=== PATIENT | female | born 1990 | race Caucasian/White ===

== ENCOUNTER 2017-06-11 06:04 | Inpatient (IN) | payer MEDICAID ==
[~2017-06-11] VITALS: Ht 152.4 cm; Wt 47.0 kg
[~2017-06-11 06:04] MED LIST: NO HOME MEDS
[2017-06-11] MEDS ORDERED: normal saline 1000ML IV soln IVB ONE (06:15)
[2017-06-11] MEDS ORDERED: ondansetron/PF 4mg/2ml inj IV ONE (06:15)
[2017-06-11 06:46] LABS: BASOPHILS # (AUTO) 0.1 X10'3 (0-0.2); BASOPHILS % (AUTO) 0.7 % (0-1); EOSINOPHILS # (AUTO) 0.1 X10'3 (0-0.9); EOSINOPHILS % (AUTO) 1.3 % (0-6); HEMATOCRIT 44.4 % (35.0-45.0); HEMOGLOBIN 15.3 g/dl (12.0-16.0); LYMPHOCYTES # (AUTO) 2.6 X10'3 (1.1-4.8); LYMPHOCYTES % (AUTO) 23.1 % (21-51); MEAN CORPUSCULAR HEMOGLOBIN 35.5 PG (27.0-31.0); MEAN CORPUSCULAR HGB CONC 34.5 % (33.0-36.5); MEAN CORPUSCULAR VOLUME 102.7 FL (78-98); MEAN PLATELET VOLUME 9.5 FL (7.4-10.4); MONOCYTES # (AUTO) 0.5 X10'3 (0-0.9); MONOCYTES % (AUTO) 4.5 % (2-12); NEUTROPHILS % (AUTO) 70.4 % (42-75); PLATELET COUNT 184 X10'3 (140-440); RED BLOOD COUNT 4.33 X10'6 (4.20-5.60); RED CELL DISTRIBUTION WIDTH 13.7 % (11.5-14.5); WHITE BLOOD COUNT 11.4 X10'3 (4.5-11.0)
[2017-06-11 06:53] LABS: CLARITY,URINE Clear (Clear); COLOR,URINE Yellow (Yellow); GLUCOSE, URINE Negative (Neg); KETONES,URINE 80 mg/dl (Neg); LEUKOCYTE ESTERASE ,URINE Negative (Neg); NITRITES, URINE Negative (Neg); OCCULT BLOOD,URINE Moderate (Neg); PROTEIN,URINE 30 mg/dl (Neg); URINE HCG NEGATIVE (NEG)
[2017-06-11 06:55] LABS: UA COLLECTION TYPE CLN CATCH MIDSTREAM
[2017-06-11 07:00] LABS: BACTERIA,URINE NONE SEEN /HPF (Neg); MUCUS STRANDS NONE SEEN /LPF (Neg); RBC,URINE 0-2 /HPF (0-2); SQUAMOUS EPITHELIAL CELL,UR MANY /LPF (FEW); WBC,URINE NONE SEEN /HPF (0-4)
[2017-06-11 07:01] LABS: ALANINE AMINOTRANSFERASE 82 U/L (12-78); ALBUMIN 5.3 G/DL (3.4-5.0); ALBUMIN/GLOBULIN RATIO 1.3 (1.1-1.5); ALKALINE PHOSPHATASE 76 IU/L (46-116); ANION GAP 28 (8-16); ASPARTATE AMINO TRANSFERASE 77 U/L (10-37); BILIRUBIN,TOTAL 0.5 MG/DL (0.1-1.0); BLOOD UREA NITROGEN 11 MG/DL (7-18); BUN/CREATININE RATIO 11.6 (6.6-38.0); CALCIUM 10.1 MG/DL (8.5-10.1); CHLORIDE 96 MMOL/L (99-107); CREATININE 0.95 MG/DL (0.40-0.90); GLUCOSE 72 MG/DL (70-104); LIPASE 75 U/L (73-393); POTASSIUM 3.9 MMOL/L (3.5-5.1); SODIUM 142 MMOL/L (135-145); TOTAL CARBON DIOXIDE 17.7 MMOL/L (24-32); TOTAL PROTEIN 9.3 G/DL (6.4-8.2); eGFR 71 ML/MIN
[2017-06-11] MEDS ORDERED: pantoprazole 40 MG vial IV ONE (07:05)
[2017-06-11] MEDS: normal saline 1000ml 1,000 ML IV SCH ×4 (07:26→19:05)
[2017-06-11] MEDS ORDERED: diphenhydrAMINE 50 mg/ml inj IV PRN (09:10)
[2017-06-11] MEDS ORDERED: dextrose 50%-water 50ml dispensing syringe IV PRN (09:10)
[2017-06-11] MEDS ORDERED: magnesium hydroxide 30ml (MOM) UD suspension PO PRN (09:10)
[2017-06-11] MEDS ORDERED: HYDROcodone/acetaminophen 5mg/325mg tablet PO PRN (09:10)
[2017-06-11] MEDS ORDERED: ondansetron/PF 4mg/2ml inj IV PRN (09:10)
[2017-06-11] MEDS ORDERED: mag hydrox/Alum hydrox/simeth 30ml oral suspension PO PRN (09:10)
[2017-06-11] MEDS ORDERED: morphine 4 MG/ML inj SYRINge IV PRN ×2 (09:10)
[2017-06-11] MEDS ORDERED: diphenhydrAMINE 25mg capsule PO PRN (09:10)
[2017-06-11] MEDS ORDERED: metoclopramide 5 mg/ml inj IV PRN (09:10)
[2017-06-11] MEDS ORDERED: normal saline 500ml IV soln 500 ML IV ONE (09:10)
[2017-06-11] MEDS ORDERED: HYDROmorphone inj. 0.5 MG/0.5 ML DISP.SYRIN IV PRN ×2 (09:10)
[2017-06-11] MEDS ORDERED: HYDROcodone/acetaminophen 10/325mg tab PO PRN (09:10)
[2017-06-11] MEDS ORDERED: bisacodyl 10mg suppository rectal RC PRN (09:10)
[2017-06-11] MEDS ORDERED: haloperidol lactate 5mg/ml inj IM PRN (09:10)
[2017-06-11] MEDS ORDERED: acetaminophen 325mg tablet PO PRN (09:10)
[2017-06-11] MEDS ORDERED: haloperidol 5mg tablet PO PRN (09:10)
[2017-06-11] MEDS ORDERED: thiamine 100mg/ml 2ml inj. IV ONE (09:10)
[2017-06-11 09:51] LABS: MAGNESIUM 1.8 MG/DL (1.5-2.4)
[2017-06-11 09:56] LABS: ABG BASE EXCESS -14.3 mmol/L (-2.0-3.0); ABG HCO3 9.7 mmol/L (22.0-26.0); ABG OXYGEN SATURATION 96.9 % (95-98); ABG PH (T) 7.304 (7.350-7.450); ABG PO2 (T) 103.6 mmHg (83-108); FCOHb 0.6 % (0.5-1.5); FMetHb 0.2 % (0.3-1.12); FO2Hb 96.1 % (94-100); TOTAL HEMOGLOBIN 13.5 G/dl (12.0-16.0)
[2017-06-11] MEDS: dextrose 5%-1/2 normal saline 1,000 ML IV SCH ×5 (11:44→23:28)
[2017-06-11 12:06] LABS: URINE AMPHETAMINE SCREEN NEGATIVE (Neg); URINE BARBITUATE SCREEN NEGATIVE (Neg); URINE BENZODIAZEPINES SCREEN NEGATIVE (Neg); URINE CANNABINOID SCREEN POSITIVE (Neg); URINE COCAINE SCREEN NEGATIVE (Neg); URINE METHADONE SCREEN NEGATIVE (Neg); URINE OPIATE SCREEN NEGATIVE (Neg); URINE PHENCYCLIDINE SCREEN NEGATIVE (Neg)
[2017-06-11 14:00] VITALS: BP 129/88
[2017-06-11 18:00] VITALS: BP 129/92
[2017-06-11] MEDS: docusate sod 100mg capsule PO SCH (20:00)
[2017-06-11] MEDS: heparin, porcine 5000 units/ml vial SQ SCH (20:18)
[2017-06-11] MEDS: LORazepam 2 mg/ml vial IV PRN (20:25)
[2017-06-11] MEDS ORDERED: temazepam 15mg capsule PO PRN (21:00)
[2017-06-12] VITALS: BP 118/80
[2017-06-12 06:11] LABS: BASOPHILS % (AUTO) 0.3 % (0-1); EOSINOPHILS # (AUTO) 0.1 X10'3 (0-0.9); EOSINOPHILS % (AUTO) 1.2 % (0-6); HEMATOCRIT 37.9 % (35.0-45.0); HEMOGLOBIN 13.5 g/dl (12.0-16.0); LYMPHOCYTES # (AUTO) 1.7 X10'3 (1.1-4.8); LYMPHOCYTES % (AUTO) 28.4 % (21-51); MEAN CORPUSCULAR HEMOGLOBIN 36.1 PG (27.0-31.0); MEAN CORPUSCULAR HGB CONC 35.7 % (33.0-36.5); MEAN CORPUSCULAR VOLUME 101.2 FL (78-98); MEAN PLATELET VOLUME 9.4 FL (7.4-10.4); MONOCYTES # (AUTO) 0.7 X10'3 (0-0.9); MONOCYTES % (AUTO) 11.1 % (2-12); NEUTROPHILS # (AUTO) 3.6 X10'3 (1.8-7.7); PLATELET COUNT 166 X10'3 (140-440); RED BLOOD COUNT 3.75 X10'6 (4.20-5.60); RED CELL DISTRIBUTION WIDTH 13.6 % (11.5-14.5)
[2017-06-12 06:36] LABS: ALANINE AMINOTRANSFERASE 54 U/L (12-78); ALBUMIN 3.7 G/DL (3.4-5.0); ALBUMIN/GLOBULIN RATIO 1.1 (1.1-1.5); ALKALINE PHOSPHATASE 57 IU/L (46-116); ANION GAP 10 (8-16); ASPARTATE AMINO TRANSFERASE 52 U/L (10-37); BILIRUBIN,TOTAL 0.6 MG/DL (0.1-1.0); BLOOD UREA NITROGEN 5 MG/DL (7-18); BUN/CREATININE RATIO 8.5 (6.6-38.0); CHLORIDE 102 MMOL/L (99-107); CREATININE 0.59 MG/DL (0.40-0.90); GLUCOSE 117 MG/DL (70-104); POTASSIUM 4.1 MMOL/L (3.5-5.1); SODIUM 138 MMOL/L (135-145); TOTAL CARBON DIOXIDE 25.7 MMOL/L (24-32); eGFR > 90 ML/MIN
[2017-06-12 08:00] VITALS: BP 132/88
[2017-06-12] MEDS: heparin, porcine 5000 units/ml vial SQ SCH ×2 (08:00→20:00)
[2017-06-12] MEDS: nicotine 21mg patch - 24 hr TD SCH (08:00)
[2017-06-12] MEDS: docusate sod 100mg capsule PO SCH ×2 (08:00→20:00)
[2017-06-12] MEDS: pantoprazole 40 MG vial IV SCH (09:38)
[2017-06-12] MEDS: dextrose 5%-1/2 normal saline 1,000 ML IV SCH ×2 (09:39→15:10)
[2017-06-12 11:00] VITALS: BP 127/90
[2017-06-12 18:00] VITALS: BP 138/95
[2017-06-12] MEDS: LORazepam 2 mg/ml vial IV PRN (20:17)
[2017-06-13] VITALS: BP 123/91
[2017-06-13] MEDS: dextrose 5%-1/2 normal saline 1,000 ML IV SCH ×2 (01:10→06:45)
[2017-06-13 05:53] LABS: BASOPHILS # (AUTO) 0.1 X10'3 (0-0.2); EOSINOPHILS # (AUTO) 0.1 X10'3 (0-0.9); EOSINOPHILS % (AUTO) 2.7 % (0-6); HEMATOCRIT 39.6 % (35.0-45.0); LYMPHOCYTES # (AUTO) 1.7 X10'3 (1.1-4.8); LYMPHOCYTES % (AUTO) 32.1 % (21-51); MEAN CORPUSCULAR HEMOGLOBIN 36.2 PG (27.0-31.0); MEAN CORPUSCULAR HGB CONC 35.4 % (33.0-36.5); MEAN CORPUSCULAR VOLUME 102.2 FL (78-98); MEAN PLATELET VOLUME 10.2 FL (7.4-10.4); MONOCYTES # (AUTO) 0.6 X10'3 (0-0.9); MONOCYTES % (AUTO) 10.2 % (2-12); NEUTROPHILS # (AUTO) 2.9 X10'3 (1.8-7.7); PLATELET COUNT 147 X10'3 (140-440); RED BLOOD COUNT 3.87 X10'6 (4.20-5.60); RED CELL DISTRIBUTION WIDTH 13.7 % (11.5-14.5); WHITE BLOOD COUNT 5.4 X10'3 (4.5-11.0)
[2017-06-13 06:29] LABS: ALANINE AMINOTRANSFERASE 66 U/L (12-78); ALBUMIN 4.1 G/DL (3.4-5.0); ALBUMIN/GLOBULIN RATIO 1.2 (1.1-1.5); ALKALINE PHOSPHATASE 60 IU/L (46-116); ANION GAP 10 (8-16); ASPARTATE AMINO TRANSFERASE 84 U/L (10-37); BILIRUBIN,TOTAL 0.7 MG/DL (0.1-1.0); BLOOD UREA NITROGEN 3 MG/DL (7-18); BUN/CREATININE RATIO 5.3 (6.6-38.0); CALCIUM 9.4 MG/DL (8.5-10.1); CHLORIDE 104 MMOL/L (99-107); CREATININE 0.57 MG/DL (0.40-0.90); GLUCOSE 88 MG/DL (70-104); POTASSIUM 4.1 MMOL/L (3.5-5.1); SODIUM 142 MMOL/L (135-145); TOTAL CARBON DIOXIDE 28.4 MMOL/L (24-32); TOTAL PROTEIN 7.5 G/DL (6.4-8.2); eGFR > 90 ML/MIN
[2017-06-13 07:00] VITALS: BP 128/78
[2017-06-13] MEDS: nicotine 21mg patch - 24 hr TD SCH (08:00)
[2017-06-13] MEDS: docusate sod 100mg capsule PO SCH (08:00)
[2017-06-13] MEDS: heparin, porcine 5000 units/ml vial SQ SCH (08:00)
[2017-06-13] MEDS ORDERED: LORazepam 1 MG tablet PO PRN (09:10)
[2017-06-13] MEDS ORDERED: LORazepam 2 mg/ml vial IV PRN (09:10)
[2017-06-13] MEDS: diatr meglu/diatrizoate 30ml oral sol.-(3 dose) bottle PO SCH ×3 (09:14→15:18)
[2017-06-13] MEDS: pantoprazole 40 MG vial IV SCH (09:16)
[2017-06-13 11:00] VITALS: BP 118/88
[2017-06-13] MEDS ORDERED: ONDA4TAB6 PO (12:54)
[2017-06-13] MEDS ORDERED: iohexol 300mg/ml 100ml inj. ONE (14:41)
[2017-06-15] MEDS ORDERED: LORazepam 1 MG tablet PO PRN (09:10)
[2017-06-15] MEDS ORDERED: LORazepam 2 mg/ml vial IV PRN (09:10)
== END 2017-06-13 17:23 | disposition home or self-care (01) | DRG 775 ==
LOC: ER 06:04 → ED HOLD 09:10 → SUR 3N 11:36
PROVIDERS: ADMIT Family Medicine; ATTEND Internal Medicine
PROC: BW211ZZ Computerized Tomography (CT Scan) of Abdomen and Pelvis using Low Osmolar Contrast (ICD-10-PCS; principal; 2017-06-13)
DX: F10.239 Alcohol dependence with withdrawal, unspecified (principal); E87.2 Acidosis; Y90.1 Blood alcohol level of 20-39 mg/100 ml; E86.0 Dehydration; F10.229 Alcohol dependence with intoxication, unspecified; F12.90 Cannabis use, unspecified, uncomplicated; F17.200 Nicotine dependence, unspecified, uncomplicated; F31.9 Bipolar disorder, unspecified; I10 Essential (primary) hypertension; K31.9 Disease of stomach and duodenum, unspecified; Z82.49 Family history of ischemic heart disease and other diseases of the circulatory system; Z80.9 Family history of malignant neoplasm, unspecified
CPT/HCPCS: 36415; 36600; 74177; 80053; 80305; 80320; 81001; 81025; 82009; 82803; 83605; 83690; 83735; 84100; 85018; 85025; 87070; 96361; 96374; 96375; 99291; A6258; C9113; J1644; J2060; J2405; J3411; J7030; Q9963; Q9967

== ENCOUNTER 2017-09-19 12:43 | Inpatient (IN) | payer MEDICAID ==
[~2017-09-19] VITALS: Ht 152.4 cm; Wt 45.8 kg
[~2017-09-19 12:43] MED LIST changes: -NO HOME MEDS; +ONDA4TAB6 PO
[2017-09-19] MEDS ORDERED: ondansetron/PF 4mg/2ml inj IV ONE (13:10)
[2017-09-19] MEDS ORDERED: normal saline 1000ML IV soln IVB ONE ×2 (13:10→15:40)
[2017-09-19 13:18] LABS: BASOPHILS % (AUTO) 0.3 % (0-1); EOSINOPHILS # (AUTO) 0.1 X10'3 (0-0.9); EOSINOPHILS % (AUTO) 0.9 % (0-6); HEMATOCRIT 45.8 % (35.0-45.0); HEMOGLOBIN 15.6 g/dl (12.0-16.0); LYMPHOCYTES # (AUTO) 0.7 X10'3 (1.1-4.8); LYMPHOCYTES % (AUTO) 8.3 % (21-51); MEAN CORPUSCULAR HEMOGLOBIN 36.3 PG (27.0-31.0); MEAN CORPUSCULAR HGB CONC 34.1 % (33.0-36.5); MEAN CORPUSCULAR VOLUME 106.5 FL (78-98); MEAN PLATELET VOLUME 8.7 FL (7.4-10.4); MONOCYTES # (AUTO) 0.3 X10'3 (0-0.9); MONOCYTES % (AUTO) 3.7 % (2-12); NEUTROPHILS # (AUTO) 7.8 X10'3 (1.8-7.7); NEUTROPHILS % (AUTO) 86.8 % (42-75); PLATELET COUNT 205 X10'3 (140-440); RED CELL DISTRIBUTION WIDTH 15.4 % (11.5-14.5); WHITE BLOOD COUNT 8.9 X10'3 (4.5-11.0)
[2017-09-19 13:21] LABS: COLOR,URINE YELLOW (Yellow); GLUCOSE, URINE NEGATIVE (Neg); KETONES,URINE >=80 mg/dl (Neg); LEUKOCYTE ESTERASE ,URINE NEGATIVE (Neg); NITRITES, URINE NEGATIVE (Neg); OCCULT BLOOD,URINE LARGE (Neg); PROTEIN,URINE >=300 mg/dl (Neg); UROBILINOGEN,URINE 0.2 E.U/dL (0.2-1.0)
[2017-09-19 13:22] LABS: URINE HCG NEGATIVE (NEG)
[2017-09-19 13:27] LABS: INR 0.9 INR; PROTHROMBIN TIME 9.7 SECONDS (9.0-12.0)
[2017-09-19 13:27] LABS: CLARITY,URINE SLIGHTLY CLOUDY (Clear); UA COLLECTION TYPE CLN CATCH MIDSTREAM
[2017-09-19 13:32] LABS: WBC,URINE 0-4 /HPF (0-4)
[2017-09-19 13:33] LABS: ALANINE AMINOTRANSFERASE 73 U/L (12-78); ALBUMIN 5.4 G/DL (3.4-5.0); ALBUMIN/GLOBULIN RATIO 1.2 (1.1-1.5); ALKALINE PHOSPHATASE 82 IU/L (46-116); AMYLASE 35 U/L (25-115); ANION GAP 37 (8-16); ASPARTATE AMINO TRANSFERASE 82 U/L (10-37); BILIRUBIN,TOTAL 0.5 MG/DL (0.1-1.0); BLOOD UREA NITROGEN 6 MG/DL (7-18); BUN/CREATININE RATIO 6.7 (6.6-38.0); CHLORIDE 96 MMOL/L (99-107); CREATININE 0.89 MG/DL (0.40-0.90); GLUCOSE 141 MG/DL (70-104); LIPASE 73 U/L (73-393); POTASSIUM 4.5 MMOL/L (3.5-5.1); SODIUM 140 MMOL/L (135-145); TOTAL PROTEIN 9.8 G/DL (6.4-8.2); eGFR 76 ML/MIN
[2017-09-19 13:35] LABS: TOTAL CARBON DIOXIDE 6.9 MMOL/L (24-32)
[2017-09-19 13:42] LABS: BACTERIA,URINE FEW /HPF (Neg); HYALINE CASTS 0-3 /LPF (NEGATIVE); MUCUS STRANDS FEW /LPF (Neg); RBC,URINE 0-2 /HPF (0-2); SQUAMOUS EPITHELIAL CELL,UR MODERATE /LPF (FEW)
[2017-09-19] MEDS ORDERED: NO HOME MEDS (14:31)
[2017-09-19] MEDS ORDERED: proCHLORperazine 10 MG/2 ml inj IV ONE (15:15)
[2017-09-19] MEDS ORDERED: ondansetron/PF 4mg/2ml inj IV PRN (16:35)
[2017-09-19] MEDS ORDERED: morphine 4 MG/ML inj SYRINge IV PRN ×2 (16:35)
[2017-09-19] MEDS ORDERED: dextrose 50%-water 50ml dispensing syringe IV PRN (16:35)
[2017-09-19] MEDS ORDERED: LORazepam 1 MG tablet PO PRN (16:35)
[2017-09-19] MEDS ORDERED: mag hydrox/Alum hydrox/simeth 30ml oral suspension PO PRN (16:35)
[2017-09-19] MEDS ORDERED: potassium Cl 20 mEq SR tablet PO PRN (16:35)
[2017-09-19] MEDS ORDERED: LORazepam 2 mg/ml vial IV PRN ×2 (16:35)
[2017-09-19] MEDS ORDERED: HYDROcodone/acetaminophen 5mg/325mg tablet PO PRN (16:35)
[2017-09-19] MEDS ORDERED: magnesium Cl slow-release 64mg tablet PO PRN (16:35)
[2017-09-19] MEDS ORDERED: magnesium hydroxide 30ml (MOM) UD suspension PO PRN (16:35)
[2017-09-19] MEDS ORDERED: magnesium 2GM in 50ml NS 50 ML IV PRN (16:35)
[2017-09-19] MEDS ORDERED: potassium Cl 40MEQ/NS 500ml 500 ML IV PRN ×2 (16:35)
[2017-09-19] MEDS ORDERED: HYDROcodone/acetaminophen 10/325mg tab PO PRN (16:35)
[2017-09-19] MEDS ORDERED: thiamine 100mg/ml 2ml inj. IV ONE (16:35)
[2017-09-19] MEDS ORDERED: acetaminophen 325mg tablet PO PRN ×2 (16:35)
[2017-09-19] MEDS ORDERED: cloNIDine 0.1 MG/24 HOUR patch (7 day patch) TD SCH (16:35)
[2017-09-19] MEDS ORDERED: magnesium 4gm in 100ml NS 100 ML IV PRN (16:35)
[2017-09-19 16:46] LABS: ABG BASE EXCESS -20.9 mmol/L (-2.0-3.0); ABG HCO3 5.6 mmol/L (22.0-26.0); ABG OXYGEN SATURATION 94.1 % (95-98); ABG PCO2 (T) 16.4 mmHg (32.0-45.0); ABG PH (T) 7.154 (7.350-7.450); ABG PO2 (T) 81.8 mmHg (83-108); ALLEN'S TEST Positive; FCOHb 0.9 % (0.5-1.5); FMetHb 0.4 % (0.3-1.12); FO2Hb 92.9 % (94-100); TOTAL HEMOGLOBIN 14.3 G/dl (12.0-16.0)
[2017-09-19] MEDS: normal saline 1000ml 1,000 ML IV SCH (17:17)
[2017-09-19 17:35] LABS: ABG BASE EXCESS -18.9 mmol/L (-2.0-3.0); ABG HCO3 6.3 mmol/L (22.0-26.0); ABG OXYGEN SATURATION 97.5 % (95-98); ABG PCO2 (T) 15.8 mmHg (32.0-45.0); ABG PH (T) 7.219 (7.350-7.450); FCOHb 0.6 % (0.5-1.5); FMetHb 0.4 % (0.3-1.12); FO2Hb 96.5 % (94-100); TOTAL HEMOGLOBIN 13.9 G/dl (12.0-16.0)
[2017-09-19 21:10] VITALS: BP 126/89
[2017-09-19 22:35] LABS: MAGNESIUM 1.9 MG/DL (1.5-2.4); PHOSPHORUS 2.1 MG/DL (2.3-4.5)
[2017-09-19 23:00] VITALS: BP 118/86
[2017-09-20] MEDS: normal saline 1000ml 1,000 ML IV SCH ×7 (00:50→22:31)
[2017-09-20 03:00] VITALS: BP 143/78
[2017-09-20 06:00] VITALS: BP 117/83
[2017-09-20 06:11] LABS: BASOPHILS % (AUTO) 0.5 % (0-1); EOSINOPHILS % (AUTO) 0.1 % (0-6); HEMATOCRIT 37.3 % (35.0-45.0); HEMOGLOBIN 12.9 g/dl (12.0-16.0); LYMPHOCYTES # (AUTO) 1.2 X10'3 (1.1-4.8); LYMPHOCYTES % (AUTO) 14.3 % (21-51); MEAN CORPUSCULAR HEMOGLOBIN 36.7 PG (27.0-31.0); MEAN CORPUSCULAR HGB CONC 34.6 % (33.0-36.5); MONOCYTES # (AUTO) 0.8 X10'3 (0-0.9); MONOCYTES % (AUTO) 9.9 % (2-12); NEUTROPHILS # (AUTO) 6.3 X10'3 (1.8-7.7); NEUTROPHILS % (AUTO) 75.2 % (42-75); PLATELET COUNT 161 X10'3 (140-440); RED BLOOD COUNT 3.51 X10'6 (4.20-5.60); RED CELL DISTRIBUTION WIDTH 14.6 % (11.5-14.5); WHITE BLOOD COUNT 8.3 X10'3 (4.5-11.0)
[2017-09-20 06:35] LABS: PROTHROMBIN TIME 10.7 SECONDS (9.0-12.0)
[2017-09-20 06:50] LABS: ALANINE AMINOTRANSFERASE 47 U/L (12-78); ALBUMIN 3.7 G/DL (3.4-5.0); ALBUMIN/GLOBULIN RATIO 1.1 (1.1-1.5); ALKALINE PHOSPHATASE 58 IU/L (46-116); ANION GAP 15 (8-16); ASPARTATE AMINO TRANSFERASE 47 U/L (10-37); BLOOD UREA NITROGEN 6 MG/DL (7-18); BUN/CREATININE RATIO 10.3 (6.6-38.0); CALCIUM 8.5 MG/DL (8.5-10.1); CHLORIDE 105 MMOL/L (99-107); CREATININE 0.58 MG/DL (0.40-0.90); GLUCOSE 83 MG/DL (70-104); POTASSIUM 3.9 MMOL/L (3.5-5.1); SODIUM 138 MMOL/L (135-145); TOTAL CARBON DIOXIDE 18.5 MMOL/L (24-32); TOTAL PROTEIN 7.1 G/DL (6.4-8.2); eGFR > 90 ML/MIN
[2017-09-20] MEDS: enoxaparin 40mg/0.4ml syringe SQ SCH (07:37)
[2017-09-20] MEDS: K and/or MAG REPLACEMENT MC SCH (08:00)
[2017-09-20 11:00] VITALS: BP 121/85
[2017-09-20 13:25] LABS: ABG BASE EXCESS -6.2 mmol/L (-2.0-3.0); ABG HCO3 16.8 mmol/L (22.0-26.0); ABG OXYGEN SATURATION 98.5 % (95-98); ABG PCO2 (T) 26.7 mmHg (32.0-45.0); ABG PH (T) 7.417 (7.350-7.450); ABG PO2 (T) 119.6 mmHg (83-108); ALLEN'S TEST Positive; FCOHb 0.2 % (0.5-1.5); FMetHb 0.1 % (0.3-1.12); FO2Hb 98.2 % (94-100); TOTAL HEMOGLOBIN 12.9 G/dl (12.0-16.0)
[2017-09-20 15:00] VITALS: BP 98/62
[2017-09-20 18:00] VITALS: BP 125/88
[2017-09-20 22:00] VITALS: BP 125/90
[2017-09-21] MEDS: normal saline 1000ml 1,000 ML IV SCH ×4 (03:36→12:46)
[2017-09-21 04:00] VITALS: BP 125/86
[2017-09-21 05:37] LABS: BASOPHILS % (AUTO) 0.7 % (0-1); EOSINOPHILS % (AUTO) 0.8 % (0-6); HEMATOCRIT 34.6 % (35.0-45.0); HEMOGLOBIN 11.8 g/dl (12.0-16.0); LYMPHOCYTES % (AUTO) 35.5 % (21-51); MEAN CORPUSCULAR HGB CONC 34.1 % (33.0-36.5); MEAN CORPUSCULAR VOLUME 105.7 FL (78-98); MEAN PLATELET VOLUME 9.4 FL (7.4-10.4); MONOCYTES # (AUTO) 0.5 X10'3 (0-0.9); MONOCYTES % (AUTO) 9.6 % (2-12); NEUTROPHILS # (AUTO) 2.9 X10'3 (1.8-7.7); NEUTROPHILS % (AUTO) 53.4 % (42-75); PLATELET COUNT 126 X10'3 (140-440); RED BLOOD COUNT 3.27 X10'6 (4.20-5.60); RED CELL DISTRIBUTION WIDTH 13.8 % (11.5-14.5); WHITE BLOOD COUNT 5.5 X10'3 (4.5-11.0)
[2017-09-21 05:42] LABS: PROTHROMBIN TIME 10.7 SECONDS (9.0-12.0)
[2017-09-21 06:00] VITALS: BP 127/83
[2017-09-21 06:03] LABS: ALANINE AMINOTRANSFERASE 58 U/L (12-78); ALBUMIN 3.5 G/DL (3.4-5.0); ALBUMIN/GLOBULIN RATIO 1.2 (1.1-1.5); ALKALINE PHOSPHATASE 56 IU/L (46-116); ANION GAP 10 (8-16); ASPARTATE AMINO TRANSFERASE 90 U/L (10-37); BILIRUBIN,TOTAL 1.2 MG/DL (0.1-1.0); BLOOD UREA NITROGEN 2 MG/DL (7-18); CALCIUM 8.2 MG/DL (8.5-10.1); CHLORIDE 105 MMOL/L (99-107); GLUCOSE 86 MG/DL (70-104); MAGNESIUM 1.7 MG/DL (1.5-2.4); SODIUM 137 MMOL/L (135-145); TOTAL CARBON DIOXIDE 21.7 MMOL/L (24-32); TOTAL PROTEIN 6.4 G/DL (6.4-8.2); eGFR > 90 ML/MIN
[2017-09-21] MEDS: potassium Cl 20 mEq SR tablet PO PRN ×2 (06:57→12:43)
[2017-09-21] MEDS: enoxaparin 40mg/0.4ml syringe SQ SCH (07:32)
[2017-09-21] MEDS: K and/or MAG REPLACEMENT MC SCH (08:00)
[2017-09-21 11:00] VITALS: BP 112/80
[2017-09-21 15:00] VITALS: BP 134/98
[2017-09-21 16:41] LABS: HEMATOCRIT 37.8 % (35.0-45.0); MEAN CORPUSCULAR HEMOGLOBIN 36.6 PG (27.0-31.0); MEAN CORPUSCULAR HGB CONC 34.4 % (33.0-36.5); MEAN CORPUSCULAR VOLUME 106.5 FL (78-98); MEAN PLATELET VOLUME 9.7 FL (7.4-10.4); PLATELET COUNT 139 X10'3 (140-440); RED BLOOD COUNT 3.55 X10'6 (4.20-5.60); RED CELL DISTRIBUTION WIDTH 14.2 % (11.5-14.5); WHITE BLOOD COUNT 5.9 X10'3 (4.5-11.0)
[2017-09-21 17:01] LABS: TOTAL CELLS COUNTED 100
[2017-09-21 17:02] LABS: PLATELET ESTIMATE DECREASED; STOMATOCYTES 1+; TARGET CELLS FEW
== END 2017-09-21 17:52 | disposition home or self-care (01) | DRG 242 ==
LOC: ER 12:43 → ED HOLD 16:31 → EDBEDREQSVC 19:44 → PCU 3S 21:10
PROVIDERS: ADMIT Internal Medicine; ATTEND Internal Medicine
DX: K22.6 Gastro-esophageal laceration-hemorrhage syndrome (principal); E87.2 Acidosis; D64.9 Anemia, unspecified; E86.0 Dehydration; F10.10 Alcohol abuse, uncomplicated; F12.90 Cannabis use, unspecified, uncomplicated; F17.200 Nicotine dependence, unspecified, uncomplicated; R00.0 Tachycardia, unspecified; Z82.49 Family history of ischemic heart disease and other diseases of the circulatory system; Z80.9 Family history of malignant neoplasm, unspecified
CPT/HCPCS: 36415; 36600; 80053; 80320; 81001; 81025; 82009; 82150; 82803; 83605; 83690; 83735; 84100; 85018; 85025; 85610; 87070; 96361; 96374; 96375; 99285; J0780; J1650; J2405; J3411; J7030

== ENCOUNTER 2017-10-23 14:40 | Emergency (ER) | payer MEDICAID ==
[~2017-10-23] VITALS: Ht 152.4 cm; Wt 48.2 kg
[2017-10-23 15:02] LABS: URINE HCG NEGATIVE (NEG)
[2017-10-23 15:05] LABS: CLARITY,URINE CLEAR (Clear); COLOR,URINE YELLOW (Yellow); GLUCOSE, URINE NEGATIVE (Neg); KETONES,URINE >=80 mg/dl (Neg); LEUKOCYTE ESTERASE ,URINE NEGATIVE (Neg); NITRITES, URINE NEGATIVE (Neg); OCCULT BLOOD,URINE SMALL (Neg); PROTEIN,URINE 100 mg/dl (Neg); UROBILINOGEN,URINE 0.2 E.U/dL (0.2-1.0)
[2017-10-23 15:10] LABS: UA COLLECTION TYPE CLN CATCH MIDSTREAM
[2017-10-23] MEDS ORDERED: ondansetron/PF 4mg/2ml inj IV ONE (15:10)
[2017-10-23] MEDS ORDERED: LORazepam 2 mg/ml vial IV ONE (15:10)
[2017-10-23] MEDS ORDERED: normal saline 1000ML IV soln IVB ONE ×2 (15:10→15:35)
[2017-10-23 15:12] LABS: WBC,URINE NONE SEEN /HPF (0-4)
[2017-10-23 15:13] LABS: BASOPHILS % (AUTO) 0.2 % (0-1); EOSINOPHILS % (AUTO) 0 % (0-6); HEMATOCRIT 42.5 % (35.0-45.0); HEMOGLOBIN 14.8 g/dl (12.0-16.0); LYMPHOCYTES # (AUTO) 0.5 X10'3 (1.1-4.8); LYMPHOCYTES % (AUTO) 4.6 % (21-51); MEAN CORPUSCULAR HEMOGLOBIN 36.9 PG (27.0-31.0); MEAN CORPUSCULAR HGB CONC 34.8 % (33.0-36.5); MEAN CORPUSCULAR VOLUME 105.9 FL (78-98); MEAN PLATELET VOLUME 9.2 FL (7.4-10.4); MONOCYTES # (AUTO) 0.3 X10'3 (0-0.9); MONOCYTES % (AUTO) 2.6 % (2-12); NEUTROPHILS # (AUTO) 10.4 X10'3 (1.8-7.7); NEUTROPHILS % (AUTO) 92.6 % (42-75); PLATELET COUNT 113 X10'3 (140-440); RED BLOOD COUNT 4.01 X10'6 (4.20-5.60); RED CELL DISTRIBUTION WIDTH 13.2 % (11.5-14.5); WHITE BLOOD COUNT 11.2 X10'3 (4.5-11.0)
[2017-10-23 15:13] LABS: BACTERIA,URINE FEW /HPF (Neg); RBC,URINE 0-2 /HPF (0-2); SQUAMOUS EPITHELIAL CELL,UR FEW /LPF (FEW)
[2017-10-23 15:20] LABS: INR 0.9 INR; PROTHROMBIN TIME 9.7 SECONDS (9.0-12.0)
[2017-10-23 15:25] LABS: ALANINE AMINOTRANSFERASE 89 U/L (12-78); ALBUMIN 5.2 G/DL (3.4-5.0); ALBUMIN/GLOBULIN RATIO 1.2 (1.1-1.5); ALKALINE PHOSPHATASE 90 IU/L (46-116); ANION GAP 31 (8-16); BILIRUBIN,TOTAL 1.2 MG/DL (0.1-1.0); BLOOD UREA NITROGEN 5 MG/DL (7-18); BUN/CREATININE RATIO 7.8 (6.6-38.0); CALCIUM 9.8 MG/DL (8.5-10.1); CHLORIDE 97 MMOL/L (99-107); CREATININE 0.64 MG/DL (0.40-0.90); GLUCOSE 146 MG/DL (70-104); SODIUM 137 MMOL/L (135-145); TOTAL PROTEIN 9.5 G/DL (6.4-8.2); eGFR > 90 ML/MIN
[2017-10-23 15:27] LABS: ASPARTATE AMINO TRANSFERASE 118 U/L (10-37); POTASSIUM 4.7 MMOL/L (3.5-5.1)
[2017-10-23 15:29] LABS: TOTAL CARBON DIOXIDE 8.8 MMOL/L (24-32)
[2017-10-23 17:27] VITALS: BP 127/78
[2017-10-23 17:52] LABS: ALANINE AMINOTRANSFERASE 78 U/L (12-78); ALBUMIN 4.3 G/DL (3.4-5.0); ALBUMIN/GLOBULIN RATIO 1.2 (1.1-1.5); ALKALINE PHOSPHATASE 79 IU/L (46-116); ANION GAP 24 (8-16); ASPARTATE AMINO TRANSFERASE 85 U/L (10-37); BILIRUBIN,TOTAL 0.8 MG/DL (0.1-1.0); BLOOD UREA NITROGEN 3 MG/DL (7-18); BUN/CREATININE RATIO 4.6 (6.6-38.0); CHLORIDE 102 MMOL/L (99-107); CREATININE 0.65 MG/DL (0.40-0.90); GLUCOSE 101 MG/DL (70-104); POTASSIUM 4.6 MMOL/L (3.5-5.1); SODIUM 139 MMOL/L (135-145); eGFR > 90 ML/MIN
[2017-10-23 17:57] LABS: TOTAL CARBON DIOXIDE 12.7 MMOL/L (24-32)
[2017-10-23] MEDS ORDERED: ONDA8TAB9 PO (18:36)
== END 2017-10-23 18:44 | disposition home or self-care (01) ==
LOC: ER 14:41
DX: F10.239 Alcohol dependence with withdrawal, unspecified (principal); F12.90 Cannabis use, unspecified, uncomplicated; Z79.899 Other long term (current) drug therapy
CPT/HCPCS: 36415; 80053; 81001; 81025; 85025; 85610; 96361; 96374; 96375; 99284; J2060; J2405; J7030

== ENCOUNTER 2019-04-17 23:22 | Inpatient (IN) | payer MEDICAID ==
[~2019-04-17] VITALS: Ht 152.4 cm; Wt 56.8 kg
[~2019-04-17 23:22] MED LIST changes: -ONDA4TAB6 PO; +ONDA8TAB9 PO
[2019-04-17 23:47] LABS: URINE HCG NEGATIVE (NEG)
[2019-04-17 23:49] LABS: CLARITY,URINE SLIGHTLY CLOUDY (Clear); COLOR,URINE YELLOW (Yellow); GLUCOSE, URINE NEGATIVE (Neg); KETONES,URINE >=80 mg/dl (Neg); LEUKOCYTE ESTERASE ,URINE NEGATIVE (Neg); NITRITES, URINE NEGATIVE (Neg); OCCULT BLOOD,URINE MODERATE (Neg); PROTEIN,URINE 100 mg/dl (Neg); UROBILINOGEN,URINE 0.2 E.U/dL (0.2-1.0)
[2019-04-17 23:50] LABS: UA COLLECTION TYPE CLN CATCH MIDSTREAM
[2019-04-18 00:10] LABS: WBC,URINE 0-4 /HPF (0-4)
[2019-04-18 00:11] LABS: BACTERIA,URINE NONE SEEN /HPF (Neg); MUCUS STRANDS MANY /LPF (Neg); SQUAMOUS EPITHELIAL CELL,UR MANY /LPF (FEW)
[2019-04-18 00:15] LABS: BASOPHILS # (AUTO) 0.1 X10'3 (0-0.2); BASOPHILS % (AUTO) 0.7 % (0-1); EOSINOPHILS % (AUTO) 0 % (0-6); HEMATOCRIT 42.7 % (35.0-45.0); HEMOGLOBIN 14.5 g/dl (12.0-16.0); LYMPHOCYTES # (AUTO) 0.8 X10'3 (1.1-4.8); LYMPHOCYTES % (AUTO) 9.9 % (21-51); MEAN CORPUSCULAR HEMOGLOBIN 37.2 PG (27.0-31.0); MEAN CORPUSCULAR VOLUME 109.4 FL (78-98); MEAN PLATELET VOLUME 10.3 FL (7.4-10.4); MONOCYTES # (AUTO) 0.8 X10'3 (0-0.9); MONOCYTES % (AUTO) 9.7 % (2-12); NEUTROPHILS # (AUTO) 6.8 X10'3 (1.8-7.7); NEUTROPHILS % (AUTO) 79.7 % (42-75); PLATELET COUNT 118 X10'3 (140-440); RED CELL DISTRIBUTION WIDTH 13.1 % (11.5-14.5); WHITE BLOOD COUNT 8.5 X10'3 (4.5-11.0)
[2019-04-18 00:18] LABS: ALANINE AMINOTRANSFERASE 133 U/L (12-78); ALBUMIN 4.8 G/DL (3.4-5.0); ALBUMIN/GLOBULIN RATIO 1.1 (1.1-1.5); ALKALINE PHOSPHATASE 88 IU/L (46-116); ANION GAP 25 (8-16); ASPARTATE AMINO TRANSFERASE 145 U/L (10-37); BILIRUBIN,TOTAL 1.1 MG/DL (0.1-1.0); BLOOD UREA NITROGEN 5 MG/DL (7-18); BUN/CREATININE RATIO 6.4 (6.6-38.0); CALCIUM 9.7 MG/DL (8.5-10.1); CHLORIDE 100 MMOL/L (99-107); CREATININE 0.78 MG/DL (0.40-0.90); GLUCOSE 143 MG/DL (70-104); LIPASE 517 U/L (73-393); POTASSIUM 4.1 MMOL/L (3.5-5.1); SODIUM 138 MMOL/L (135-145); eGFR 87 ML/MIN
[2019-04-18] MEDS ORDERED: LORazepam 2 mg/ml vial IV ONE (00:40)
[2019-04-18] MEDS ORDERED: ondansetron/PF 4mg/2ml inj IV ONE (00:40)
[2019-04-18] MEDS ORDERED: proCHLORperazine 10 MG/2 ml inj IV ONE (00:40)
[2019-04-18] MEDS ORDERED: normal saline 1000ML IV soln IVB ONE ×2 (00:40)
[2019-04-18] MEDS ORDERED: normal saline 1000ml 1,000 ML IV SCH (03:38)
[2019-04-18] MEDS ORDERED: potassium Cl 20 mEq SR tablet PO PRN ×2 (03:40)
[2019-04-18] MEDS ORDERED: magnesium 4gm in 100ml NS 100 ML IV PRN (03:40)
[2019-04-18] MEDS ORDERED: potassium CL 10mEq/100ml bag 100 ML IV PRN ×2 (03:40)
[2019-04-18] MEDS ORDERED: magnesium Cl slow-release 64mg tablet PO PRN (03:40)
[2019-04-18] MEDS ORDERED: magnesium 2GM in 50ml NS 50 ML IV PRN (03:40)
--- NOTE | 2019-04-18 05:21 | NUR ---
Patient in room ED 6. I have received report from Rayshawn ED RN and had the opportunity to ask questions and assume patient care.
[2019-04-18 05:35] LABS: ALANINE AMINOTRANSFERASE 95 U/L (12-78); ALBUMIN 3.6 G/DL (3.4-5.0); ALBUMIN/GLOBULIN RATIO 1.3 (1.1-1.5); ALKALINE PHOSPHATASE 65 IU/L (46-116); ANION GAP 18 (8-16); ASPARTATE AMINO TRANSFERASE 92 U/L (10-37); BILIRUBIN,TOTAL 0.7 MG/DL (0.1-1.0); BLOOD UREA NITROGEN 3 MG/DL (7-18); CALCIUM 7.6 MG/DL (8.5-10.1); CHLORIDE 107 MMOL/L (99-107); GLUCOSE 84 MG/DL (70-104); POTASSIUM 3.7 MMOL/L (3.5-5.1); SODIUM 139 MMOL/L (135-145); TOTAL PROTEIN 6.4 G/DL (6.4-8.2); eGFR > 90 ML/MIN
[2019-04-18 05:40] LABS: TOTAL CARBON DIOXIDE 13.7 MMOL/L (24-32)
[2019-04-18 05:46] VITALS: BP 129/81
[2019-04-18 05:50] LABS: BASOPHILS % (AUTO) 0.2 % (0-1); EOSINOPHILS % (AUTO) 0 % (0-6); HEMATOCRIT 35.4 % (35.0-45.0); HEMOGLOBIN 12.1 g/dl (12.0-16.0); LYMPHOCYTES # (AUTO) 0.9 X10'3 (1.1-4.8); LYMPHOCYTES % (AUTO) 11.3 % (21-51); MEAN CORPUSCULAR HEMOGLOBIN 37.8 PG (27.0-31.0); MEAN CORPUSCULAR HGB CONC 34.1 g/dL (33.0-36.5); MEAN CORPUSCULAR VOLUME 110.7 FL (78-98); MEAN PLATELET VOLUME 10.3 FL (7.4-10.4); MONOCYTES # (AUTO) 0.9 X10'3 (0-0.9); MONOCYTES % (AUTO) 11.7 % (2-12); NEUTROPHILS % (AUTO) 76.8 % (42-75); PLATELET COUNT 90 X10'3 (140-440); RED BLOOD COUNT 3.19 X10'6 (4.20-5.60); WHITE BLOOD COUNT 7.8 X10'3 (4.5-11.0)
--- NOTE | 2019-04-18 06:38 | NUR ---
Problems reprioritized. Patient report given, questions answered & plan of care reviewed with XENA Dale.
[2019-04-18] MEDS ORDERED: ONDA8TAB6 PO (06:51)
[2019-04-18 06:59] LABS: LARGE PLATELETS FEW; PLATELET ESTIMATE DECREASED
[2019-04-18 07:00] VITALS: BP 111/72
[2019-04-18] MEDS: K and/or MAG REPLACEMENT MC SCH ×2 (08:00→19:06)
[2019-04-18 11:24] VITALS: BP 116/77
--- NOTE | 2019-04-18 12:05 | NUR ---
SPOKE TO MD HARRIS ABOUT LIPASE, VENOUS CO2, AND CALCIUM LEVELS. SEE NEW ORDERS.
--- NOTE | 2019-04-18 12:08 | NUR ---
PAGED RESPIRATORY REGARDING ABGS
--- NOTE | 2019-04-18 12:09 | NUR ---
AWARE OF HR. BEING IN THE 110S. ORDERS TO PLACE PT. ON TELE.
[2019-04-18 12:12] LABS: HEMOGLOBIN A1C 4.4 % (4.5-6.2)
[2019-04-18 12:40] LABS: ABG BASE EXCESS -7.7 mmol/L (-2.0-3.0); ABG HCO3 15.8 mmol/L (22.0-26.0); ABG PCO2 (T) 26.8 mmHg (35.0-45.0); ABG PH (T) 7.387 (7.350-7.450); ABG PO2 (T) 103.9 mmHg (83-108); ALLEN'S TEST Positive; FCOHb 0.6 % (0.5-1.5); FMetHb 0.3 % (0.3-1.12); FO2Hb 97.1 % (94-100); PATIENT TEMPERATURE 36.7; TOTAL HEMOGLOBIN 12.9 G/dl (12.0-16.0)
--- NOTE | 2019-04-18 12:46 | NUR ---
MD AWARE OF ABG RESULTS. RESULTS PLACED IN CHART.
--- NOTE | 2019-04-18 12:50 | NUR ---
FAXED DIETARY FOR LATE LUNCH TRAY- FULL LIQUID DIET.
[2019-04-18] MEDS: sodium bicarbonate (8.4%) inj. 100 MEQ in dextrose 5%-water 1,000 ML IV SCH ×2 (12:59→23:58)
[2019-04-18 13:12] LABS: MAGNESIUM 1.7 MG/DL (1.5-2.4)
--- NOTE | 2019-04-18 13:19 | NUR ---
PAGER ID: [phone] MESSAGE: KATLYN VAZQUEZ 345 SORRY TO PAGE YOU! PT. C/O SEVERAL HEAT FLASH EPISODES AT HOME. A LITTLE EXOPTHALMUS - CAN WE RUN THYROID LABS? CHARLI [phone]
[2019-04-18 18:00] VITALS: BP 127/90
--- NOTE | 2019-04-18 18:08 | NUR ---
GAVE REPORT TO CECILIA MCCALLUM. PT. IN ROOM EATING DINNER, CALL LIGHT WITHIN REACH, FLUIDS RUNNING, NO NEEDS AT THIS TIME. TELE ON AND WORKING.
[2019-04-19] VITALS: BP 143/91
[2019-04-19 05:20] LABS: ALANINE AMINOTRANSFERASE 80 U/L (12-78); ALBUMIN 3.7 G/DL (3.4-5.0); ALBUMIN/GLOBULIN RATIO 1.1 (1.1-1.5); ALKALINE PHOSPHATASE 66 IU/L (46-116); ANION GAP 10 (8-16); ASPARTATE AMINO TRANSFERASE 75 U/L (10-37); BILIRUBIN,TOTAL 1.1 MG/DL (0.1-1.0); BLOOD UREA NITROGEN 1 MG/DL (7-18); BUN/CREATININE RATIO 1.7 (6.6-38.0); CALCIUM 8.5 MG/DL (8.5-10.1); CHLORIDE 102 MMOL/L (99-107); CREATININE 0.58 MG/DL (0.40-0.90); GLUCOSE 132 MG/DL (70-104); MAGNESIUM 1.8 MG/DL (1.5-2.4); SODIUM 139 MMOL/L (135-145); TOTAL CARBON DIOXIDE 27.5 MMOL/L (24-32); eGFR > 90 ML/MIN
[2019-04-19 05:28] LABS: POTASSIUM 2.8 MMOL/L (3.5-5.1)
[2019-04-19] MEDS ORDERED: Potassium Cl inj 40 MEQ in normal saline 1000ml 980 ML IV SCH (05:50)
[2019-04-19 06:09] LABS: BASOPHILS % (AUTO) 0.5 % (0-1); EOSINOPHILS # (AUTO) 0.1 X10'3 (0-0.9); EOSINOPHILS % (AUTO) 1.2 % (0-6); HEMATOCRIT 38.4 % (35.0-45.0); HEMOGLOBIN 13.5 g/dl (12.0-16.0); LYMPHOCYTES # (AUTO) 1.9 X10'3 (1.1-4.8); LYMPHOCYTES % (AUTO) 24.5 % (21-51); MEAN CORPUSCULAR HEMOGLOBIN 37.4 PG (27.0-31.0); MEAN CORPUSCULAR HGB CONC 35.2 g/dL (33.0-36.5); MEAN CORPUSCULAR VOLUME 106.2 FL (78-98); MEAN PLATELET VOLUME 10.7 FL (7.4-10.4); MONOCYTES # (AUTO) 0.7 X10'3 (0-0.9); MONOCYTES % (AUTO) 9.5 % (2-12); NEUTROPHILS # (AUTO) 4.9 X10'3 (1.8-7.7); NEUTROPHILS % (AUTO) 64.3 % (42-75); PLATELET COUNT 96 X10'3 (140-440); RED BLOOD COUNT 3.62 X10'6 (4.20-5.60); RED CELL DISTRIBUTION WIDTH 12.7 % (11.5-14.5); WHITE BLOOD COUNT 7.6 X10'3 (4.5-11.0)
--- NOTE | 2019-04-19 06:09 | NUR ---
Report given to XENA Martinez and Jimena RN
[2019-04-19 07:00] VITALS: BP 132/91
[2019-04-19] MEDS: K and/or MAG REPLACEMENT MC SCH (07:09)
[2019-04-19] MEDS ORDERED: POTASSIUM BICARB 20meq eff tab 20 MEQ TABLET.EFF PO PRN ×2 (07:19)
[2019-04-19 07:53] LABS: LARGE PLATELETS FEW; PLATELET ESTIMATE DECREASED
[2019-04-19 11:00] VITALS: BP 110/82
[2019-04-19] MEDS ORDERED: THIA100T66 PO (14:48)
[2019-04-19] MEDS ORDERED: FOLI0.4T2 PO (14:48)
--- NOTE | 2019-04-19 15:17 | NUR ---
Pt to be discharged, IV taken out, tele returned. All belongings taken from room. Meds e scripted to preferred pharmacy. Pt appropriate for discharge. Pt given information about staying away from alcohol and treatment options.
== END 2019-04-19 15:54 | disposition home or self-care (01) | DRG 249 ==
LOC: ER 23:23 → ED HOLD 04-18 03:38 → SUR 3N 04-18 05:41
PROVIDERS: ADMIT Internal Medicine; ATTEND Internal Medicine
DX: K52.9 Noninfective gastroenteritis and colitis, unspecified (principal); E87.2 Acidosis; D75.89 Other specified diseases of blood and blood-forming organs; F10.20 Alcohol dependence, uncomplicated; F17.210 Nicotine dependence, cigarettes, uncomplicated; F12.90 Cannabis use, unspecified, uncomplicated; Z82.49 Family history of ischemic heart disease and other diseases of the circulatory system; Z80.9 Family history of malignant neoplasm, unspecified
CPT/HCPCS: 36415; 36600; 80053; 80320; 81001; 81025; 82330; 82803; 82948; 83036; 83690; 83735; 84132; 84443; 85018; 85025; 87081; 96361; 96374; 96375; 99285; G0378; J0780; J2060; J2405; J3480; J7030

== ENCOUNTER 2019-05-21 11:22 | Inpatient (IN) | payer MEDICAID ==
[~2019-05-21] VITALS: Ht 152.4 cm; Wt 56.8 kg
[~2019-05-21 11:22] MED LIST changes: +ONDA8TAB6 PO; -ONDA8TAB9 PO; +THIA100T66 PO
[2019-05-21] MEDS ORDERED: dextrose 5%-1/2 normal saline 1,000 ML IV ONE (11:52)
[2019-05-21] MEDS ORDERED: normal saline 1000ML IV soln IVB ONE ×4 (11:55→14:00)
[2019-05-21] MEDS ORDERED: LORazepam 2 mg/ml vial IV ONE ×6 (12:00→15:50)
[2019-05-21 12:10] LABS: BASOPHILS # (AUTO) 0.1 X10'3 (0-0.2); BASOPHILS % (AUTO) 0.6 % (0-1); EOSINOPHILS % (AUTO) 0 % (0-6); HEMATOCRIT 46.4 % (35.0-45.0); HEMOGLOBIN 14.9 g/dl (12.0-16.0); LYMPHOCYTES % (AUTO) 4.6 % (21-51); MEAN CORPUSCULAR HEMOGLOBIN 35.5 PG (27.0-31.0); MEAN CORPUSCULAR HGB CONC 32.2 g/dL (33.0-36.5); MEAN CORPUSCULAR VOLUME 110.3 FL (78-98); MEAN PLATELET VOLUME 9.9 FL (7.4-10.4); MONOCYTES # (AUTO) 1.2 X10'3 (0-0.9); MONOCYTES % (AUTO) 5.3 % (2-12); NEUTROPHILS # (AUTO) 19.7 X10'3 (1.8-7.7); NEUTROPHILS % (AUTO) 89.5 % (42-75); PLATELET COUNT 161 X10'3 (140-440); RED CELL DISTRIBUTION WIDTH 13.9 % (11.5-14.5)
[2019-05-21 12:21] LABS: PARTIAL THROMBOPLASTIN TIME 26 SECONDS (22-32)
[2019-05-21 12:36] LABS: ALANINE AMINOTRANSFERASE 73 U/L (12-78); ALKALINE PHOSPHATASE 94 IU/L (46-116); ASPARTATE AMINO TRANSFERASE 92 U/L (10-37); CALCIUM 9.8 MG/DL (8.5-10.1); CHLORIDE 98 MMOL/L (99-107); CREATININE 1.02 MG/DL (0.40-0.90); POTASSIUM 4.2 MMOL/L (3.5-5.1); SODIUM 140 MMOL/L (135-145); TOTAL PROTEIN 9.5 G/DL (6.4-8.2); eGFR 64 ML/MIN
[2019-05-21 13:10] LABS: PLATELET ESTIMATE NORMAL
[2019-05-21 13:17] LABS: ALBUMIN 5.2 G/DL (3.4-5.0); ALBUMIN/GLOBULIN RATIO 1.2 (1.1-1.5); BLOOD UREA NITROGEN 4 MG/DL (7-18); BUN/CREATININE RATIO 3.9 (6.6-38.0); GLUCOSE 202 MG/DL (70-104)
[2019-05-21 13:19] LABS: CLARITY,URINE CLEAR (Clear); COLOR,URINE STRAW (Yellow); GLUCOSE, URINE NEGATIVE (Neg); KETONES,URINE >=80 mg/dl (Neg); LEUKOCYTE ESTERASE ,URINE NEGATIVE (Neg); NITRITES, URINE NEGATIVE (Neg); OCCULT BLOOD,URINE SMALL (Neg); PH,URINE 5.5 (4.8-8.0); PROTEIN,URINE 100 mg/dl (Neg); UROBILINOGEN,URINE 0.2 E.U/dL (0.2-1.0)
[2019-05-21 13:24] LABS: URINE AMPHETAMINE SCREEN NEGATIVE (Neg); URINE BARBITUATE SCREEN NEGATIVE (Neg); URINE BENZODIAZEPINES SCREEN NEGATIVE (Neg); URINE CANNABINOID SCREEN POSITIVE (Neg); URINE COCAINE SCREEN NEGATIVE (Neg); URINE METHADONE SCREEN NEGATIVE (Neg); URINE OPIATE SCREEN NEGATIVE (Neg); URINE PHENCYCLIDINE SCREEN NEGATIVE (Neg)
[2019-05-21 13:25] LABS: ANION GAP 37 (8-16); TOTAL CARBON DIOXIDE < 5 MMOL/L (24-32)
--- NOTE | 2019-05-21 13:30 | NUR ---
SPOKE WITH JORDANA AT [facility]. PT IS DC'D AND READY FOR DISCHARGE. JORDANA WILL HAVE SOMEBODY COME PICK HIM UP.
[2019-05-21 13:35] LABS: UA COLLECTION TYPE CLN CATCH MIDSTREAM
[2019-05-21 13:36] LABS: BACTERIA,URINE FEW /HPF (Neg); MUCUS STRANDS NONE SEEN /LPF (Neg); SQUAMOUS EPITHELIAL CELL,UR FEW /LPF (FEW); WBC,URINE 0-4 /HPF (0-4)
[2019-05-21 13:37] LABS: HYALINE CASTS 0-3 /LPF (NEGATIVE)
[2019-05-21] MEDS: sodium bicarbonate (8.4%) inj. 50 MEQ in dextrose 5%-water 1,000 ML IV SCH (14:42)
--- NOTE | 2019-05-21 15:00 | NUR ---
MULTIPLE IV ATTEMPT FAILURES, WILL ADVISE PROVIDER.
--- NOTE | 2019-05-21 15:10 | NUR ---
DR WESTFALL ASSESSING THE PT IN BED 3, HE CONSULTED WITH DR TERRELL, A CENTRAL LINE WILL BE PLACED BEFORE ADMISSION.
[2019-05-21] MEDS ORDERED: bisacodyl 10mg suppository rectal RC PRN (15:30)
[2019-05-21] MEDS ORDERED: magnesium 2GM in 50ml NS 50 ML IV PRN (15:30)
[2019-05-21] MEDS ORDERED: ondansetron/PF 4mg/2ml inj IV PRN (15:30)
[2019-05-21] MEDS ORDERED: Neutra Phos packet PO PRN (15:30)
[2019-05-21] MEDS ORDERED: magnesium Cl slow-release 64mg tablet PO PRN (15:30)
[2019-05-21] MEDS ORDERED: magnesium 4gm in 100ml NS 100 ML IV PRN (15:30)
[2019-05-21] MEDS ORDERED: sodium phosphate inj. 15 MMOL in dextrose 5%-water 150 ML IV PRN (15:30)
[2019-05-21] MEDS ORDERED: haloperidol 5mg tablet PO PRN (15:30)
[2019-05-21] MEDS ORDERED: cloNIDine 0.1 MG/24 HOUR patch (7 day patch) TD SCH (15:30)
[2019-05-21] MEDS ORDERED: ipratropium/albuterol 3ml nebule NEB PRN (15:30)
[2019-05-21] MEDS ORDERED: morphine 2 MG/ML inj. syringe IV PRN (15:30)
[2019-05-21] MEDS ORDERED: morphine 4 MG/ML inj SYRINge IV PRN (15:30)
[2019-05-21] MEDS ORDERED: sodium phosphate inj. 30 MMOL in dextrose 5%-water 250 ML IV PRN (15:30)
[2019-05-21] MEDS ORDERED: potassium CL 10mEq/100ml bag 100 ML IV PRN (15:30)
[2019-05-21] MEDS ORDERED: thiamine 100mg/ml 2ml inj. IV ONE (15:30)
[2019-05-21] MEDS ORDERED: dextrose 50%-water 50ml dispensing syringe IV PRN (15:30)
[2019-05-21] MEDS ORDERED: potassium Cl 20 mEq SR tablet PO PRN (15:30)
[2019-05-21] MEDS ORDERED: magnesium hydroxide 30ml (MOM) UD suspension PO PRN (15:30)
[2019-05-21] MEDS ORDERED: haloperidol lactate 5mg/ml inj IM PRN (15:30)
[2019-05-21] MEDS ORDERED: acetaminophen 325mg tablet PO PRN ×2 (15:30)
[2019-05-21] MEDS ORDERED: NO HOME MEDS (15:49)
[2019-05-21] MEDS: LORazepam 2 mg/ml vial IV PRN ×2 (15:56→19:42)
[2019-05-21 17:11] LABS: ABG BASE EXCESS -16.6 mmol/L (-2.0-3.0); ABG HCO3 7.9 mmol/L (22.0-26.0); ABG OXYGEN SATURATION 97.7 % (95-98); ABG PCO2 (T) 17.4 mmHg (35.0-45.0); ABG PH (T) 7.273 (7.350-7.450); ABG PO2 (T) 103.8 mmHg (83-108); ALLEN'S TEST POSITIVE; FCOHb 0.8 % (0.5-1.5); FO2Hb 96.9 % (94-100); TOTAL HEMOGLOBIN 13.2 G/dl (12.0-16.0)
[2019-05-21 17:25] LABS: ALANINE AMINOTRANSFERASE 47 U/L (12-78); ALBUMIN 3.8 G/DL (3.4-5.0); ALBUMIN/GLOBULIN RATIO 1.1 (1.1-1.5); ALKALINE PHOSPHATASE 71 IU/L (46-116); AMYLASE 36 U/L (25-115); ANION GAP 22 (8-16); ASPARTATE AMINO TRANSFERASE 50 U/L (10-37); BILIRUBIN,TOTAL 0.7 MG/DL (0.1-1.0); BLOOD UREA NITROGEN 3 MG/DL (7-18); BUN/CREATININE RATIO 3.1 (6.6-38.0); CALCIUM 7.6 MG/DL (8.5-10.1); CHLORIDE 106 MMOL/L (99-107); CREATININE 0.97 MG/DL (0.40-0.90); GLUCOSE 315 MG/DL (70-104); LIPASE 274 U/L (73-393); POTASSIUM 4.3 MMOL/L (3.5-5.1); SODIUM 137 MMOL/L (135-145); TOTAL PROTEIN 7.4 G/DL (6.4-8.2); eGFR 68 ML/MIN
[2019-05-21 17:34] LABS: TOTAL CARBON DIOXIDE 8.7 MMOL/L (24-32)
[2019-05-21] MEDS: piperacillin/tazo 4.5gm/100ml 100 ML IV SCH (17:46)
[2019-05-21 17:59] LABS: ETHANOL < 0.010 GM/DL (0.0-0.010)
[2019-05-21] MEDS: heparin, porcine 5000 units/ml vial SQ SCH (19:29)
--- NOTE | 2019-05-21 19:43 | NUR ---
PT PLACED ON HOSPITAL BED FOR COMFORT
[2019-05-21] MEDS ORDERED: thiamine inj. 100 MG, folic acid inj. 2 MG in normal saline 100ml IV soln 100 ML IV SCH (20:00)
[2019-05-22] VITALS (15 sets, daily range): BP systolic 110–141; BP diastolic 73–93
[2019-05-22] MEDS: sodium bicarbonate (8.4%) inj. 50 MEQ in dextrose 5%-water 1,000 ML IV SCH ×3 (01:07→23:39)
[2019-05-22 01:18] LABS: BASOPHILS # (AUTO) 0.1 X10'3 (0-0.2); BASOPHILS % (AUTO) 0.4 % (0-1); EOSINOPHILS % (AUTO) 0 % (0-6); HEMATOCRIT 38.4 % (35.0-45.0); HEMOGLOBIN 12.9 g/dl (12.0-16.0); LYMPHOCYTES # (AUTO) 1.3 X10'3 (1.1-4.8); LYMPHOCYTES % (AUTO) 9.7 % (21-51); MEAN CORPUSCULAR HEMOGLOBIN 35.8 PG (27.0-31.0); MEAN CORPUSCULAR HGB CONC 33.6 g/dL (33.0-36.5); MEAN CORPUSCULAR VOLUME 106.6 FL (78-98); MEAN PLATELET VOLUME 9.8 FL (7.4-10.4); MONOCYTES # (AUTO) 0.9 X10'3 (0-0.9); MONOCYTES % (AUTO) 6.6 % (2-12); NEUTROPHILS # (AUTO) 11.2 X10'3 (1.8-7.7); NEUTROPHILS % (AUTO) 83.3 % (42-75); PLATELET COUNT 112 X10'3 (140-440); WHITE BLOOD COUNT 13.5 X10'3 (4.5-11.0)
[2019-05-22 01:24] LABS: ALANINE AMINOTRANSFERASE 48 U/L (12-78); ALBUMIN 3.8 G/DL (3.4-5.0); ALBUMIN/GLOBULIN RATIO 1.1 (1.1-1.5); ALKALINE PHOSPHATASE 67 IU/L (46-116); ANION GAP 13 (8-16); ASPARTATE AMINO TRANSFERASE 53 U/L (10-37); BLOOD UREA NITROGEN 3 MG/DL (7-18); BUN/CREATININE RATIO 4.5 (6.6-38.0); CALCIUM 8.2 MG/DL (8.5-10.1); CHLORIDE 104 MMOL/L (99-107); CREATININE 0.66 MG/DL (0.40-0.90); GLUCOSE 189 MG/DL (70-104); SODIUM 135 MMOL/L (135-145); TOTAL CARBON DIOXIDE 17.8 MMOL/L (24-32); TOTAL PROTEIN 7.3 G/DL (6.4-8.2); eGFR > 90 ML/MIN
[2019-05-22 01:32] LABS: MAGNESIUM 1.6 MG/DL (1.5-2.4)
[2019-05-22 01:33] LABS: PHOSPHORUS 0.9 MG/DL (2.3-4.5)
[2019-05-22] MEDS: potassium Cl 20 mEq SR tablet PO PRN ×4 (01:44→16:09)
[2019-05-22] MEDS ORDERED: sodium phosphate inj. 30 MMOL in normal saline 250ml IV soln 250 ML IV ONE (01:50)
[2019-05-22] MEDS: piperacillin/tazo 4.5gm/100ml 100 ML IV SCH ×3 (01:57→21:32)
--- NOTE | 2019-05-22 07:24 | NUR ---
Patient sleeping. Respirations unlabored. NAD.
[2019-05-22] MEDS: nicotine 21mg patch - 24 hr TD SCH (08:00)
[2019-05-22] MEDS ORDERED: MVI, adult No.4 with vit. K 10 ML in dextrose 5% water 500ml 500 ML IV SCH ×2 (08:00)
--- NOTE | 2019-05-22 08:48 | NUR ---
patient transferred to icu room 2037, patient is on bicarb drip at 100ml/hr, VSS
[2019-05-22] MEDS: heparin, porcine 5000 units/ml vial SQ SCH ×2 (09:22→21:32)
[2019-05-22] MEDS: pantoprazole 40 MG vial IV SCH (09:22)
[2019-05-22] MEDS ORDERED: piperacillin/tazo 4.5gm/100ml 100 ML IV SCH (10:00)
[2019-05-22 10:18] LABS: ALANINE AMINOTRANSFERASE 37 U/L (12-78); ALBUMIN/GLOBULIN RATIO 1.1 (1.1-1.5); ALKALINE PHOSPHATASE 53 IU/L (46-116); ASPARTATE AMINO TRANSFERASE 39 U/L (10-37); BILIRUBIN,TOTAL 0.8 MG/DL (0.1-1.0); BLOOD UREA NITROGEN 2 MG/DL (7-18); BUN/CREATININE RATIO 4.1 (6.6-38.0); CALCIUM 6.9 MG/DL (8.5-10.1); CHLORIDE 108 MMOL/L (99-107); CREATININE 0.49 MG/DL (0.40-0.90); GLUCOSE 120 MG/DL (70-104); TOTAL CARBON DIOXIDE 22.1 MMOL/L (24-32); TOTAL PROTEIN 5.8 G/DL (6.4-8.2); eGFR > 90 ML/MIN
[2019-05-22 10:29] LABS: PHOSPHORUS 1.8 MG/DL (2.3-4.5); POTASSIUM 2.7 MMOL/L (3.5-5.1)
[2019-05-22 11:20] LABS: ANION GAP 13 (8-16); SODIUM 143 MMOL/L (135-145)
[2019-05-22] MEDS: multivitamins, therapeutics tablet PO SCH (11:53)
[2019-05-22] MEDS: folic acid 1mg tablet PO SCH (11:53)
[2019-05-22] MEDS: thiamine 100mg tablet PO SCH (11:57)
--- NOTE | 2019-05-22 14:00 | NUR ---
Patient admitted with EtOH ketoacidosis per MD note, heavy EtOH history. She is receiving MVI, thiamine, folic acid, and electrolyte replacement. Is currently NPO. SS following. Will follow per protocol. Addendum: 05/22/19 at [address] Amended: Links added.
[2019-05-22 20:29] LABS: ALBUMIN 3.4 G/DL (3.4-5.0); ANION GAP 9 (8-16); BLOOD UREA NITROGEN 2 MG/DL (7-18); BUN/CREATININE RATIO 3.9 (6.6-38.0); CALCIUM 8.5 MG/DL (8.5-10.1); CHLORIDE 107 MMOL/L (99-107); CREATININE 0.51 MG/DL (0.40-0.90); GLUCOSE 131 MG/DL (70-104); POTASSIUM 3.2 MMOL/L (3.5-5.1); SODIUM 143 MMOL/L (135-145); TOTAL CARBON DIOXIDE 26.8 MMOL/L (24-32); eGFR > 90 ML/MIN
[2019-05-22] MEDS: potassium Cl 20mEq/100mL bag 100 ML IV PRN ×2 (22:14→23:40)
[2019-05-23] VITALS (17 sets, daily range): BP systolic 109–128; BP diastolic 70–90
[2019-05-23 03:59] LABS: BASOPHILS % (AUTO) 0.4 % (0-1); EOSINOPHILS % (AUTO) 0.2 % (0-6); HEMATOCRIT 35.3 % (35.0-45.0); HEMOGLOBIN 12.3 g/dl (12.0-16.0); LYMPHOCYTES # (AUTO) 2.3 X10'3 (1.1-4.8); LYMPHOCYTES % (AUTO) 26.9 % (21-51); MEAN CORPUSCULAR HEMOGLOBIN 36.2 PG (27.0-31.0); MEAN CORPUSCULAR HGB CONC 34.9 g/dL (33.0-36.5); MEAN CORPUSCULAR VOLUME 103.8 FL (78-98); MONOCYTES # (AUTO) 0.6 X10'3 (0-0.9); MONOCYTES % (AUTO) 7.5 % (2-12); NEUTROPHILS # (AUTO) 5.5 X10'3 (1.8-7.7); PLATELET COUNT 87 X10'3 (140-440); WHITE BLOOD COUNT 8.5 X10'3 (4.5-11.0)
[2019-05-23 04:09] LABS: ALANINE AMINOTRANSFERASE 40 U/L (12-78); ALBUMIN 3.4 G/DL (3.4-5.0); ALBUMIN/GLOBULIN RATIO 1.1 (1.1-1.5); ALKALINE PHOSPHATASE 59 IU/L (46-116); ANION GAP 9 (8-16); ASPARTATE AMINO TRANSFERASE 42 U/L (10-37); BILIRUBIN,TOTAL 0.8 MG/DL (0.1-1.0); BLOOD UREA NITROGEN 1 MG/DL (7-18); BUN/CREATININE RATIO 1.7 (6.6-38.0); CALCIUM 8.1 MG/DL (8.5-10.1); CHLORIDE 105 MMOL/L (99-107); CREATININE 0.58 MG/DL (0.40-0.90); GLUCOSE 128 MG/DL (70-104); POTASSIUM 3.3 MMOL/L (3.5-5.1); SODIUM 141 MMOL/L (135-145); TOTAL CARBON DIOXIDE 27.1 MMOL/L (24-32); TOTAL PROTEIN 6.5 G/DL (6.4-8.2); eGFR > 90 ML/MIN
[2019-05-23] MEDS: potassium Cl 20mEq/100mL bag 100 ML IV PRN ×2 (04:55→08:15)
[2019-05-23] MEDS: piperacillin/tazo 4.5gm/100ml 100 ML IV SCH ×3 (05:10→20:53)
--- NOTE | 2019-05-23 07:09 | NUR ---
Patient in room ICU 2037. I have received report from XENA Rai and had the opportunity to ask questions and assume patient care.
[2019-05-23] MEDS: sodium bicarbonate (8.4%) inj. 50 MEQ in dextrose 5%-water 1,000 ML IV SCH (08:00)
[2019-05-23] MEDS: heparin, porcine 5000 units/ml vial SQ SCH ×2 (08:00→20:00)
[2019-05-23] MEDS: pantoprazole 40 MG vial IV SCH (08:07)
[2019-05-23] MEDS: nicotine 21mg patch - 24 hr TD SCH (08:13)
[2019-05-23] MEDS: multivitamins, therapeutics tablet PO SCH (08:14)
[2019-05-23] MEDS: folic acid 1mg tablet PO SCH (08:14)
[2019-05-23] MEDS: thiamine 100mg tablet PO SCH (08:14)
[2019-05-23 10:10] LABS: MAGNESIUM 1.5 MG/DL (1.5-2.4); PHOSPHORUS 1.6 MG/DL (2.3-4.5)
--- NOTE | 2019-05-23 14:39 | NUR ---
F/C dc'd without problem,pt up to void @ [facility]
--- NOTE | 2019-05-23 14:54 | NUR ---
Problems reprioritized. Patient report given, questions answered & plan of care reviewed with axel surgical consultant.
[2019-05-23] MEDS ORDERED: LORazepam 2 mg/ml vial IV PRN (15:30)
[2019-05-23] MEDS ORDERED: LORazepam 1 MG tablet PO PRN (15:30)
--- NOTE | 2019-05-23 16:19 | NUR ---
Pt transferred with all belongings to room 346b
[2019-05-23] MEDS: potassium Cl 20 mEq SR tablet PO PRN ×2 (16:32→20:43)
--- NOTE | 2019-05-23 18:25 | NUR ---
Problems reprioritized. Patient report given, questions answered & plan of care reviewed with Deb Boyd RN.
--- NOTE | 2019-05-23 18:30 | NUR ---
Patient in room DEYSI 346. I have received report from BRIGIDO MCCALLUM and had the opportunity to ask questions and assume patient care.
[2019-05-23] MEDS: lactobacillus rhamnosus 10,000 MMU CELLS/CAPSULE PO SCH (20:43)
[2019-05-24] VITALS: BP 116/81
[2019-05-24] MEDS: piperacillin/tazo 4.5gm/100ml 100 ML IV SCH (04:59)
[2019-05-24 05:47] LABS: BASOPHILS % (AUTO) 0.6 % (0-1); EOSINOPHILS % (AUTO) 0.6 % (0-6); HEMATOCRIT 36.4 % (35.0-45.0); HEMOGLOBIN 12.5 g/dl (12.0-16.0); LYMPHOCYTES # (AUTO) 2.1 X10'3 (1.1-4.8); LYMPHOCYTES % (AUTO) 32.4 % (21-51); MEAN CORPUSCULAR HEMOGLOBIN 36.1 PG (27.0-31.0); MEAN CORPUSCULAR HGB CONC 34.5 g/dL (33.0-36.5); MEAN CORPUSCULAR VOLUME 104.7 FL (78-98); MEAN PLATELET VOLUME 10.5 FL (7.4-10.4); MONOCYTES # (AUTO) 0.4 X10'3 (0-0.9); NEUTROPHILS # (AUTO) 3.9 X10'3 (1.8-7.7); NEUTROPHILS % (AUTO) 60.4 % (42-75); PLATELET COUNT 94 X10'3 (140-440); RED BLOOD COUNT 3.47 X10'6 (4.20-5.60); WHITE BLOOD COUNT 6.5 X10'3 (4.5-11.0)
[2019-05-24 06:14] LABS: ALANINE AMINOTRANSFERASE 66 U/L (12-78); ALBUMIN 3.6 G/DL (3.4-5.0); ALBUMIN/GLOBULIN RATIO 1.1 (1.1-1.5); ALKALINE PHOSPHATASE 61 IU/L (46-116); ANION GAP 10 (8-16); ASPARTATE AMINO TRANSFERASE 107 U/L (10-37); BILIRUBIN,TOTAL 1.1 MG/DL (0.1-1.0); BLOOD UREA NITROGEN 1 MG/DL (7-18); BUN/CREATININE RATIO 1.7 (6.6-38.0); CALCIUM 8.9 MG/DL (8.5-10.1); CHLORIDE 109 MMOL/L (99-107); CREATININE 0.58 MG/DL (0.40-0.90); GLUCOSE 92 MG/DL (70-104); MAGNESIUM 1.7 MG/DL (1.5-2.4); PHOSPHORUS 2.1 MG/DL (2.3-4.5); SODIUM 145 MMOL/L (135-145); TOTAL CARBON DIOXIDE 26.4 MMOL/L (24-32); TOTAL PROTEIN 6.8 G/DL (6.4-8.2); eGFR > 90 ML/MIN
--- NOTE | 2019-05-24 06:30 | NUR ---
Problems reprioritized. Patient report given, questions answered & plan of care reviewed with BRIGIDO MCCALLUM.
--- NOTE | 2019-05-24 06:30 | NUR ---
Patient in room DEYSI 346. I have received report from Deb Boyd RN and had the opportunity to ask questions and assume patient care.
[2019-05-24 07:00] VITALS: BP 116/65
[2019-05-24] MEDS: heparin, porcine 5000 units/ml vial SQ SCH (07:11)
[2019-05-24] MEDS ORDERED: pantoprazole 40mg Tablet.DR PO SCH (07:30)
[2019-05-24] MEDS: thiamine 100mg tablet PO SCH (08:08)
[2019-05-24] MEDS: lactobacillus rhamnosus 10,000 MMU CELLS/CAPSULE PO SCH (08:08)
[2019-05-24] MEDS: multivitamins, therapeutics tablet PO SCH (08:09)
[2019-05-24] MEDS: folic acid 1mg tablet PO SCH (08:09)
[2019-05-24] MEDS: nicotine 21mg patch - 24 hr TD SCH (08:09)
[2019-05-24] MEDS ORDERED: MULT-1179 PO (08:55)
[2019-05-24] MEDS ORDERED: PANT40TA4 PO (08:55)
[2019-05-24] MEDS ORDERED: folic acid tablet PO (08:55)
[2019-05-24] MEDS ORDERED: NICO-687 TD (08:55)
--- NOTE | 2019-05-24 11:11 | NUR ---
Patient to be discharged. She is ready to go, just waiting on a ride at this time.
--- NOTE | 2019-05-24 11:40 | NUR ---
Patient discharged home via family and taken from unit via wheelchair with x1 staff. Patient alert oriented and in no apparent distress at time of discharge. PIV removed with cannula intact. Central line d/c'd with tip intact and site dressed. patient instructed to leave dressing in place for 24 hours and was given gauze and tape to replace the dressing with if it falls off. Patient was sent home with prescription to [facility] in [place] per patient request. Primary nurse and resource nurse discussed alcohol cessation with patient. patient stated that she is going to find a hobby that she can do to help with times that she feels like drinking. She also expressed that her whole family is going to be quitting alcohol as well. Patient stated an understanding of discharge instructions and said she did not have any questions.
[2019-05-25] MEDS ORDERED: LORazepam 1 MG tablet PO PRN (15:30)
[2019-05-25] MEDS ORDERED: LORazepam 2 mg/ml vial IV PRN (15:30)
== END 2019-05-24 12:00 | disposition home or self-care (01) | DRG 422 ==
LOC: ER 11:23 → ED HOLD 15:26 → ICU 2S 05-22 08:39 → SUR 3N 05-23 16:00
PROVIDERS: ADMIT Internal Medicine Critical Care Medicine; ATTEND Internal Medicine
PROC: 02HV33Z Insertion of Infusion Device into Superior Vena Cava, Percutaneous Approach (ICD-10-PCS; principal; 2019-05-21)
PROC: B548ZZA Ultrasonography of Superior Vena Cava, Guidance (ICD-10-PCS; 2019-05-21)
DX: E87.2 Acidosis (principal); E86.0 Dehydration; E87.6 Hypokalemia; F17.200 Nicotine dependence, unspecified, uncomplicated; F12.90 Cannabis use, unspecified, uncomplicated; F10.232 Alcohol dependence with withdrawal with perceptual disturbance; Z82.49 Family history of ischemic heart disease and other diseases of the circulatory system; Z79.899 Other long term (current) drug therapy
CPT/HCPCS: 36415; 36556; 36600; 71045; 80048; 80053; 80305; 80320; 81001; 82009; 82150; 82803; 82948; 83605; 83690; 83735; 84100; 84132; 84145; 84443; 84484; 85018; 85025; 85610; 85730; 87040; 87081; 93005; 94760; 96374; 97116; 97161; 97530; 99291; C9113; G0378; J1644; J2060; J2543; J3411; J3480; J3490; J7030; J7050

== ENCOUNTER 2020-03-31 08:16 | Emergency (ER) | payer MEDICAID ==
[~2020-03-31] VITALS: Ht 152.4 cm; Wt 50.0 kg
[~2020-03-31 08:16] MED LIST changes: +MULT-25 PO; +NICO-687 TD; -ONDA8TAB6 PO; +PANT40TA54 PO; -THIA100T66 PO; +folic acid tablet PO
[2020-03-31 08:49] VITALS: BP 128/101
[2020-03-31 08:57] LABS: CLARITY,URINE SLIGHTLY CLOUDY (Clear); COLOR,URINE YELLOW (Yellow); GLUCOSE, URINE NEGATIVE (Neg); KETONES,URINE >=80 mg/dl (Neg); LEUKOCYTE ESTERASE ,URINE NEGATIVE (Neg); NITRITES, URINE NEGATIVE (Neg); OCCULT BLOOD,URINE TRACE-INTACT (Neg); PROTEIN,URINE 100 mg/dl (Neg)
[2020-03-31 08:58] LABS: URINE HCG NEGATIVE (NEG)
[2020-03-31 08:59] LABS: BASOPHILS % (AUTO) 0.1 % (0-1); EOSINOPHILS # (AUTO) 0.1 X10'3 (0-0.9); EOSINOPHILS % (AUTO) 0.7 % (0-6); HEMATOCRIT 44.3 % (35.0-45.0); HEMOGLOBIN 15.1 g/dl (12.0-16.0); LYMPHOCYTES # (AUTO) 0.5 X10'3 (1.1-4.8); LYMPHOCYTES % (AUTO) 4.4 % (21-51); MEAN CORPUSCULAR HEMOGLOBIN 36.8 PG (27.0-31.0); MEAN CORPUSCULAR VOLUME 108.2 FL (78-98); MONOCYTES # (AUTO) 1.1 X10'3 (0-0.9); MONOCYTES % (AUTO) 8.7 % (2-12); NEUTROPHILS # (AUTO) 10.6 X10'3 (1.8-7.7); NEUTROPHILS % (AUTO) 86.1 % (42-75); PLATELET COUNT 170 X10'3 (140-440); WHITE BLOOD COUNT 12.3 X10'3 (4.5-11.0)
[2020-03-31 09:07] LABS: UA COLLECTION TYPE CLN CATCH MIDSTREAM
[2020-03-31 09:09] LABS: SQUAMOUS EPITHELIAL CELL,UR MANY /LPF (FEW)
[2020-03-31 09:10] LABS: ALANINE AMINOTRANSFERASE 38 U/L (12-78); ALBUMIN/GLOBULIN RATIO 1.1 (1.1-1.5); ALKALINE PHOSPHATASE 83 IU/L (46-116); ANION GAP 19 (8-16); ASPARTATE AMINO TRANSFERASE 45 U/L (10-37); BILIRUBIN,TOTAL 1.3 MG/DL (0.1-1.0); BLOOD UREA NITROGEN 22 MG/DL (7-18); BUN/CREATININE RATIO 21.2 (6.6-38.0); CHLORIDE 100 MMOL/L (99-107); CREATININE 1.04 MG/DL (0.40-0.90); GLUCOSE 176 MG/DL (70-104); LIPASE 286 U/L (73-393); POTASSIUM 4.4 MMOL/L (3.5-5.1); SODIUM 135 MMOL/L (135-145); TOTAL CARBON DIOXIDE 16.5 MMOL/L (24-32); TOTAL PROTEIN 9.7 G/DL (6.4-8.2); eGFR 62 ML/MIN
[2020-03-31 09:10] LABS: MUCUS STRANDS MANY /LPF (Neg)
[2020-03-31 09:14] LABS: BACTERIA,URINE 2+ /HPF (Neg); TRANSITIONAL EPI CELLS,URINE FEW /HPF
[2020-03-31 09:16] LABS: WBC,URINE 0-4 /HPF (0-4)
[2020-03-31] MEDS ORDERED: normal saline 1000ml 1,000 ML IV ONE ×2 (09:25)
[2020-03-31] MEDS ORDERED: ondansetron 4mg rapidly disintigrating tab PO ONE (09:35)
[2020-03-31 09:42] LABS: ETHANOL < 0.010 GM/DL (0.0-0.010)
[2020-03-31] MEDS ORDERED: ONDA4TAB6 PO (11:12)
== END 2020-03-31 12:04 | disposition home or self-care (01) ==
LOC: ER 08:16
DX: R11.2 Nausea with vomiting, unspecified (principal); R10.11 Right upper quadrant pain; E86.0 Dehydration; F12.90 Cannabis use, unspecified, uncomplicated; Z72.89 Other problems related to lifestyle; Z79.899 Other long term (current) drug therapy
CPT/HCPCS: 36415; 76700; 80053; 80320; 81001; 81025; 83605; 83690; 85025; 96360; 99284; J7030

== ENCOUNTER 2020-05-20 08:53 | Emergency (ER) | payer MEDICAID ==
[~2020-05-20] VITALS: Ht 154.9 cm; Wt 47.0 kg
[~2020-05-20 08:53] MED LIST changes: +ONDA4TAB6 PO
[2020-05-20] MEDS ORDERED: diphenhydrAMINE 50 mg/ml inj IV ONE (09:35)
[2020-05-20] MEDS ORDERED: proCHLORperazine 10 MG/2 ml inj IV ONE (09:35)
[2020-05-20] MEDS ORDERED: normal saline 1000ML IV soln IVB ONE (09:35)
[2020-05-20] MEDS ORDERED: ondansetron/PF 4mg/2ml inj IV ONE (09:35)
[2020-05-20 10:17] VITALS: BP 119/87
[2020-05-20 10:26] LABS: BASOPHILS % (AUTO) 0.2 % (0-1); EOSINOPHILS % (AUTO) 0 % (0-6); HEMATOCRIT 40.7 % (35.0-45.0); HEMOGLOBIN 13.5 g/dl (12.0-16.0); LYMPHOCYTES # (AUTO) 0.7 X10'3 (1.1-4.8); LYMPHOCYTES % (AUTO) 9.4 % (21-51); MEAN CORPUSCULAR HEMOGLOBIN 35.8 PG (27.0-31.0); MEAN CORPUSCULAR HGB CONC 33.3 g/dL (33.0-36.5); MEAN CORPUSCULAR VOLUME 107.4 FL (78-98); MEAN PLATELET VOLUME 9.7 FL (7.4-10.4); MONOCYTES # (AUTO) 0.5 X10'3 (0-0.9); MONOCYTES % (AUTO) 6.7 % (2-12); NEUTROPHILS # (AUTO) 6.5 X10'3 (1.8-7.7); NEUTROPHILS % (AUTO) 83.7 % (42-75); PLATELET COUNT 98 X10'3 (140-440); RED BLOOD COUNT 3.79 X10'6 (4.20-5.60); RED CELL DISTRIBUTION WIDTH 13.1 % (11.5-14.5); WHITE BLOOD COUNT 7.8 X10'3 (4.5-11.0)
[2020-05-20 10:39] LABS: URINE HCG NEGATIVE (NEG)
[2020-05-20 10:40] LABS: CLARITY,URINE CLOUDY (Clear); COLOR,URINE YELLOW (Yellow); GLUCOSE, URINE NEGATIVE (Neg); KETONES,URINE >=80 mg/dl (Neg); LEUKOCYTE ESTERASE ,URINE NEGATIVE (Neg); NITRITES, URINE NEGATIVE (Neg); OCCULT BLOOD,URINE LARGE (Neg); PROTEIN,URINE 100 mg/dl (Neg)
[2020-05-20 10:43] LABS: UA COLLECTION TYPE CLN CATCH MIDSTREAM
[2020-05-20 10:43] LABS: ALANINE AMINOTRANSFERASE 69 U/L (12-78); ALBUMIN 4.4 G/DL (3.4-5.0); ALKALINE PHOSPHATASE 76 IU/L (46-116); ANION GAP 18 (8-16); ASPARTATE AMINO TRANSFERASE 72 U/L (10-37); BILIRUBIN,TOTAL 1.2 MG/DL (0.1-1.0); BLOOD UREA NITROGEN 10 MG/DL (7-18); CHLORIDE 104 MMOL/L (99-107); CREATININE 0.83 MG/DL (0.40-0.90); GLUCOSE 150 MG/DL (70-104); LIPASE 193 U/L (73-393); POTASSIUM 3.9 MMOL/L (3.5-5.1); SODIUM 139 MMOL/L (135-145); TOTAL CARBON DIOXIDE 16.6 MMOL/L (24-32); TOTAL PROTEIN 8.6 G/DL (6.4-8.2); eGFR 81 ML/MIN
[2020-05-20 10:47] LABS: BACTERIA,URINE 1+ /HPF (Neg); SQUAMOUS EPITHELIAL CELL,UR MANY /LPF (FEW); WBC,URINE 0-4 /HPF (0-4)
[2020-05-20 10:48] LABS: MUCUS STRANDS MODERATE /LPF (Neg)
[2020-05-20] MEDS ORDERED: normal saline 1000ml 1,000 ML IV ONE (10:50)
[2020-05-20 10:56] LABS: URINE AMPHETAMINE SCREEN NEGATIVE (Neg); URINE BARBITUATE SCREEN NEGATIVE (Neg); URINE BENZODIAZEPINES SCREEN NEGATIVE (Neg); URINE CANNABINOID SCREEN POSITIVE (Neg); URINE COCAINE SCREEN NEGATIVE (Neg); URINE METHADONE SCREEN NEGATIVE (Neg); URINE OPIATE SCREEN NEGATIVE (Neg); URINE PHENCYCLIDINE SCREEN NEGATIVE (Neg)
[2020-05-20] MEDS ORDERED: ONDA4TAB6 PO (11:30)
== END 2020-05-20 12:02 | disposition home or self-care (01) ==
LOC: ER 08:53
DX: R11.2 Nausea with vomiting, unspecified (principal); E86.0 Dehydration; R53.1 Weakness; F12.90 Cannabis use, unspecified, uncomplicated; Z72.89 Other problems related to lifestyle; Z79.899 Other long term (current) drug therapy
CPT/HCPCS: 80053; 80305; 81001; 81025; 83690; 85025; 96361; 96374; 96375; 99284; J0780; J1200; J2405; J7030

== ENCOUNTER 2020-06-28 13:14 | Emergency (ER) | payer MEDICAID ==
[~2020-06-28] VITALS: Ht 152.4 cm; Wt 48.3 kg
[2020-06-28] MEDS ORDERED: normal saline 1000ML IV soln IVB ONE ×2 (15:10→16:25)
[2020-06-28 15:28] LABS: BASOPHILS % (AUTO) 0.4 % (0-1); EOSINOPHILS % (AUTO) 0 % (0-6); HEMATOCRIT 38.7 % (35.0-45.0); LYMPHOCYTES # (AUTO) 0.8 X10'3 (1.1-4.8); LYMPHOCYTES % (AUTO) 8.8 % (21-51); MEAN CORPUSCULAR HEMOGLOBIN 35.4 PG (27.0-31.0); MEAN CORPUSCULAR HGB CONC 33.7 g/dL (33.0-36.5); MEAN CORPUSCULAR VOLUME 105.1 FL (78-98); MEAN PLATELET VOLUME 9.4 FL (7.4-10.4); MONOCYTES # (AUTO) 0.5 X10'3 (0-0.9); MONOCYTES % (AUTO) 5.2 % (2-12); NEUTROPHILS # (AUTO) 7.6 X10'3 (1.8-7.7); NEUTROPHILS % (AUTO) 85.6 % (42-75); PLATELET COUNT 78 X10'3 (140-440); RED BLOOD COUNT 3.68 X10'6 (4.20-5.60); RED CELL DISTRIBUTION WIDTH 14.3 % (11.5-14.5); WHITE BLOOD COUNT 8.8 X10'3 (4.5-11.0)
[2020-06-28 15:42] LABS: ALANINE AMINOTRANSFERASE 181 U/L (12-78); ALBUMIN 4.6 G/DL (3.4-5.0); ALBUMIN/GLOBULIN RATIO 1.1 (1.1-1.5); ALKALINE PHOSPHATASE 96 IU/L (46-116); ANION GAP 24 (8-16); ASPARTATE AMINO TRANSFERASE 316 U/L (10-37); BILIRUBIN,TOTAL 1.3 MG/DL (0.1-1.0); BLOOD UREA NITROGEN 6 MG/DL (7-18); BUN/CREATININE RATIO 10.3 (6.6-38.0); CALCIUM 9.7 MG/DL (8.5-10.1); CHLORIDE 98 MMOL/L (99-107); CREATININE 0.58 MG/DL (0.40-0.90); GLUCOSE 89 MG/DL (70-104); POTASSIUM 4.1 MMOL/L (3.5-5.1); SODIUM 138 MMOL/L (135-145); TOTAL CARBON DIOXIDE 16.4 MMOL/L (24-32); TOTAL PROTEIN 8.7 G/DL (6.4-8.2); eGFR > 90 ML/MIN
[2020-06-28 17:02] LABS: CLARITY,URINE SLIGHTLY CLOUDY (Clear); COLOR,URINE STRAW (Yellow); GLUCOSE, URINE NEGATIVE (Neg); KETONES,URINE >=80 mg/dl (Neg); LEUKOCYTE ESTERASE ,URINE NEGATIVE (Neg); NITRITES, URINE NEGATIVE (Neg); OCCULT BLOOD,URINE LARGE (Neg); PROTEIN,URINE TRACE mg/dl (Neg); UROBILINOGEN,URINE 0.2 E.U/dL (0.2-1.0)
[2020-06-28 17:03] LABS: UA COLLECTION TYPE NON-SPECIFIED; URINE HCG NEGATIVE (NEG)
[2020-06-28 17:11] LABS: PARTIAL THROMBOPLASTIN TIME 22 SECONDS (22-32)
[2020-06-28 17:13] LABS: URINE AMPHETAMINE SCREEN NEGATIVE (Neg); URINE BARBITUATE SCREEN NEGATIVE (Neg); URINE BENZODIAZEPINES SCREEN NEGATIVE (Neg); URINE CANNABINOID SCREEN POSITIVE (Neg); URINE COCAINE SCREEN NEGATIVE (Neg); URINE METHADONE SCREEN NEGATIVE (Neg); URINE OPIATE SCREEN NEGATIVE (Neg); URINE PHENCYCLIDINE SCREEN NEGATIVE (Neg)
[2020-06-28 17:16] LABS: SQUAMOUS EPITHELIAL CELL,UR MANY /LPF (FEW)
[2020-06-28 17:17] LABS: ETHANOL < 0.010 GM/DL (0.0-0.010); LIPASE 91 U/L (73-393); MAGNESIUM 2.2 MG/DL (1.5-2.4)
[2020-06-28 17:17] LABS: HYALINE CASTS 0-3 /LPF (NEGATIVE); MUCUS STRANDS MODERATE /LPF (Neg)
[2020-06-28 17:18] LABS: BACTERIA,URINE FEW /HPF (Neg); RBC,URINE 0-2 /HPF (0-2); WBC,URINE 0-4 /HPF (0-4); YEAST FEW /HPF (NEGATIVE)
[2020-06-28] MEDS ORDERED: LIDOcaine Viscous 15ml cup MM ONE (18:45)
[2020-06-28] MEDS ORDERED: mag hydrox/Alum hydrox/simeth 30ml oral suspension PO ONE (18:45)
[2020-06-28] MEDS ORDERED: chlordiazePOXIDE 25mg capsule PO ONE (18:45)
[2020-06-28] MEDS ORDERED: LORazepam 2 mg/ml vial IV ONE ×2 (18:45)
[2020-06-28] MEDS ORDERED: pantoprazole 40 MG vial IV ONE (18:45)
[2020-06-28] MEDS ORDERED: magnesium oxide 400mg tablet PO ONE (18:45)
[2020-06-28] MEDS ORDERED: ketorolac tromethamine 15mg/ml inj. IV ONE (18:45)
[2020-06-28] MEDS ORDERED: morphine 2 MG/ML inj. syringe IV PRN (18:45)
[2020-06-28] MEDS ORDERED: PANT20TA18 PO (18:46)
[2020-06-28 19:18] VITALS: BP 113/79
== END 2020-06-28 19:19 | disposition home or self-care (01) ==
LOC: ER 13:15
DX: K29.20 Alcoholic gastritis without bleeding (principal); F12.90 Cannabis use, unspecified, uncomplicated; Z72.89 Other problems related to lifestyle; Z79.899 Other long term (current) drug therapy
CPT/HCPCS: 36415; 80053; 80305; 80320; 81001; 81025; 83690; 83735; 85025; 85610; 85730; 96361; 96374; 96375; 99285; C9113; J1885; J2060; J7030

== ENCOUNTER 2021-11-22 15:20 | Emergency (ER) | payer MEDICAID ==
[~2021-11-22] VITALS: Ht 154.9 cm; Wt 54.5 kg
[~2021-11-22 15:20] MED LIST changes: +PANT20TA18 PO
[2021-11-22 16:59] LABS: BASOPHILS % (AUTO) 0.2 % (0-1); EOSINOPHILS % (AUTO) 0.3 % (0-6); HEMATOCRIT 44.3 % (35.0-45.0); HEMOGLOBIN 14.7 g/dl (12.0-16.0); LYMPHOCYTES # (AUTO) 0.9 X10'3 (1.1-4.8); LYMPHOCYTES % (AUTO) 9.6 % (21-51); MEAN CORPUSCULAR HEMOGLOBIN 36.5 PG (27.0-31.0); MEAN CORPUSCULAR HGB CONC 33.2 g/dL (33.0-36.5); MEAN CORPUSCULAR VOLUME 110.1 FL (78-98); MEAN PLATELET VOLUME 9.7 FL (7.4-10.4); MONOCYTES # (AUTO) 0.9 X10'3 (0-0.9); MONOCYTES % (AUTO) 9.5 % (2-12); NEUTROPHILS # (AUTO) 7.7 X10'3 (1.8-7.7); NEUTROPHILS % (AUTO) 80.4 % (42-75); PLATELET COUNT 126 X10'3 (140-440); RED BLOOD COUNT 4.03 X10'6 (4.20-5.60); RED CELL DISTRIBUTION WIDTH 13.5 % (11.5-14.5); WHITE BLOOD COUNT 9.6 X10'3 (4.5-11.0)
[2021-11-22 17:05] LABS: ALANINE AMINOTRANSFERASE 125 U/L (12-78); ALBUMIN 4.6 G/DL (3.4-5.0); ALKALINE PHOSPHATASE 80 IU/L (46-116); ANION GAP 18 (8-16); ASPARTATE AMINO TRANSFERASE 87 U/L (10-37); BILIRUBIN,TOTAL 0.7 MG/DL (0.1-1.0); BLOOD UREA NITROGEN 7 MG/DL (7-18); BUN/CREATININE RATIO 12.3 (6.6-38.0); CALCIUM 9.6 MG/DL (8.5-10.1); CHLORIDE 101 MMOL/L (99-107); CREATININE 0.57 MG/DL (0.40-0.90); GLUCOSE 121 MG/DL (70-104); POTASSIUM 4.4 MMOL/L (3.5-5.1); SODIUM 135 MMOL/L (135-145); TOTAL CARBON DIOXIDE 16.1 MMOL/L (24-32); eGFR > 90 ML/MIN
[2021-11-22 18:29] LABS: ANISOCYTOSIS FEW; PLATELET ESTIMATE DECREASED
[2021-11-22 18:30] LABS: STOMATOCYTES 1+
[2021-11-22 19:33] LABS: URINE HCG NEGATIVE (NEG)
[2021-11-22] MEDS ORDERED: normal saline 1000ml 1,000 ML IV ONE (19:35)
[2021-11-22] MEDS ORDERED: ringers solution, lacted 1,000 ML IV ONE (19:35)
[2021-11-22] MEDS ORDERED: morphine 4 MG/ML inj SYRINge IV ONE ×2 (19:40→20:55)
[2021-11-22] MEDS ORDERED: ondansetron/PF 4mg/2ml inj IV ONE ×2 (19:40→20:55)
[2021-11-22 19:41] LABS: CLARITY,URINE CLEAR (Clear); COLOR,URINE YELLOW (Yellow); GLUCOSE, URINE NEGATIVE (Neg); KETONES,URINE >=80 mg/dl (Neg); LEUKOCYTE ESTERASE ,URINE NEGATIVE (Neg); NITRITES, URINE NEGATIVE (Neg); OCCULT BLOOD,URINE NEGATIVE (Neg); PROTEIN,URINE 100 mg/dl (Neg)
[2021-11-22 19:45] LABS: UA COLLECTION TYPE NON-SPECIFIED
[2021-11-22 20:10] LABS: BACTERIA,URINE FEW /HPF (Neg); HYALINE CASTS 0-3 /LPF (NEGATIVE); MUCUS STRANDS FEW /LPF (Neg); RBC,URINE 0-2 /HPF (0-2); SQUAMOUS EPITHELIAL CELL,UR MANY /LPF (FEW); WBC,URINE NONE SEEN /HPF (0-4)
[2021-11-22 21:38] VITALS: BP 132/80
== END 2021-11-22 21:43 | disposition home or self-care (01) ==
LOC: ER 15:21
DX: K85.20 Alcohol induced acute pancreatitis without necrosis or infection (principal); F12.90 Cannabis use, unspecified, uncomplicated
CPT/HCPCS: 36415; 80053; 81001; 81025; 83605; 83690; 85008; 85025; 93005; 96361; 96374; 96375; 96376; 99284; J2270; J2405; J7030; J7120

== ENCOUNTER 2022-05-17 19:23 | Emergency (ER) | payer MEDICAID ==
[~2022-05-17] VITALS: Ht 162.6 cm; Wt 52.0 kg
[2022-05-17 20:03] LABS: CLARITY,URINE SLIGHTLY CLOUDY (Clear); COLOR,URINE YELLOW (Yellow); GLUCOSE, URINE NEGATIVE (Neg); KETONES,URINE >=80 mg/dl (Neg); LEUKOCYTE ESTERASE ,URINE NEGATIVE (Neg); NITRITES, URINE NEGATIVE (Neg); OCCULT BLOOD,URINE NEGATIVE (Neg); PROTEIN,URINE 30 mg/dl (Neg); UROBILINOGEN,URINE 0.2 E.U/dL (0.2-1.0)
[2022-05-17 20:04] LABS: BASOPHILS # (AUTO) 0.1 X10'3 (0-0.2); BASOPHILS % (AUTO) 0.5 % (0-1); EOSINOPHILS % (AUTO) 0 % (0-6); HEMATOCRIT 43.4 % (35.0-45.0); HEMOGLOBIN 14.4 g/dl (12.0-16.0); LYMPHOCYTES # (AUTO) 0.5 X10'3 (1.1-4.8); LYMPHOCYTES % (AUTO) 4.2 % (21-51); MEAN CORPUSCULAR HEMOGLOBIN 36.8 PG (27.0-31.0); MEAN CORPUSCULAR HGB CONC 33.1 g/dL (33.0-36.5); MEAN CORPUSCULAR VOLUME 111.1 FL (78-98); MEAN PLATELET VOLUME 9.2 FL (7.4-10.4); MONOCYTES # (AUTO) 0.8 X10'3 (0-0.9); NEUTROPHILS # (AUTO) 10.4 X10'3 (1.8-7.7); NEUTROPHILS % (AUTO) 88.3 % (42-75); PLATELET COUNT 182 X10'3 (140-440); RED BLOOD COUNT 3.91 X10'6 (4.20-5.60); RED CELL DISTRIBUTION WIDTH 13.3 % (11.5-14.5); WHITE BLOOD COUNT 11.8 X10'3 (4.5-11.0)
[2022-05-17 20:04] LABS: URINE HCG NEGATIVE (NEG)
[2022-05-17 20:11] LABS: SQUAMOUS EPITHELIAL CELL,UR MANY /LPF (FEW); UA COLLECTION TYPE CLN CATCH MIDSTREAM
[2022-05-17 20:12] LABS: MUCUS STRANDS MODERATE /LPF (Neg)
[2022-05-17 20:13] LABS: FINE GRANULAR CAST 0-3 /LPF (NEGATIVE); HYALINE CASTS 0-3 /LPF (NEGATIVE); RBC,URINE 0-2 /HPF (0-2); WBC,URINE 0-4 /HPF (0-4)
[2022-05-17 20:14] LABS: BACTERIA,URINE 1+ /HPF (Neg); TRANSITIONAL EPI CELLS,URINE FEW /HPF
[2022-05-17 20:21] LABS: ALANINE AMINOTRANSFERASE 105 U/L (12-78); ALBUMIN/GLOBULIN RATIO 1.3 (1.1-1.5); ALKALINE PHOSPHATASE 94 IU/L (46-116); ANION GAP 24 (8-16); ASPARTATE AMINO TRANSFERASE 169 U/L (10-37); BILIRUBIN,TOTAL 0.9 MG/DL (0.1-1.0); BLOOD UREA NITROGEN 7 MG/DL (7-18); BUN/CREATININE RATIO 11.9 (6.6-38.0); CALCIUM 9.7 MG/DL (8.5-10.1); CHLORIDE 95 MMOL/L (99-107); CREATININE 0.59 MG/DL (0.40-0.90); GLUCOSE 131 MG/DL (70-104); POTASSIUM 4.1 MMOL/L (3.5-5.1); SODIUM 135 MMOL/L (135-145); TOTAL CARBON DIOXIDE 15.9 MMOL/L (24-32); TOTAL PROTEIN 8.8 G/DL (6.4-8.2); eGFR > 90 ML/MIN
[2022-05-17 20:25] LABS: LIPASE 5244 U/L (73-393)
[2022-05-17 20:34] LABS: TOTAL CELLS COUNTED 100
[2022-05-17 20:35] LABS: PLATELET ESTIMATE NORMAL; STOMATOCYTES 1+
[2022-05-18] MEDS ORDERED: ondansetron/PF 4mg/2ml inj IV ONE (02:20)
[2022-05-18] MEDS ORDERED: normal saline 1000ML IV soln IVB ONE (02:20)
[2022-05-18] MEDS ORDERED: morphine 4 MG/ML inj SYRINge IV ONE ×2 (02:20→04:20)
[2022-05-18] MEDS ORDERED: ONDA4TAB12 PO (05:08)
[2022-05-18] MEDS ORDERED: normal saline 1000ml 1,000 ML IV ONE (05:20)
[2022-05-18 05:22] VITALS: BP 160/92
== END 2022-05-18 05:24 | disposition home or self-care (01) ==
LOC: ER 19:24
DX: K85.90 Acute pancreatitis without necrosis or infection, unspecified (principal); F12.90 Cannabis use, unspecified, uncomplicated; Z72.89 Other problems related to lifestyle; Z79.899 Other long term (current) drug therapy
CPT/HCPCS: 36415; 80053; 81001; 81025; 83690; 85007; 85025; 96361; 96374; 96375; 96376; 99284; J2270; J2405; J7030

== ENCOUNTER 2023-02-17 08:52 | Inpatient (IN) | payer MEDICAID ==
[~2023-02-17] VITALS: Ht 154.9 cm; Wt 55.9 kg
[~2023-02-17 08:52] MED LIST changes: -MULT-25 PO; -NICO-687 TD; +ONDA4TAB12 PO; -ONDA4TAB6 PO; -PANT20TA18 PO; -PANT40TA54 PO; -folic acid tablet PO
[2023-02-17 09:28] LABS: URINE HCG NEGATIVE (NEG)
[2023-02-17 09:38] LABS: BILIRUBIN,URINE MODERATE (Neg); CLARITY,URINE CLOUDY (Clear); COLOR,URINE YELLOW (Yellow); GLUCOSE, URINE NEGATIVE (Neg); KETONES,URINE >=80 mg/dl (Neg); LEUKOCYTE ESTERASE ,URINE NEGATIVE (Neg); NITRITES, URINE NEGATIVE (Neg); OCCULT BLOOD,URINE NEGATIVE (Neg); PROTEIN,URINE 30 mg/dl (Neg); UA COLLECTION TYPE CLN CATCH MIDSTREAM
[2023-02-17 09:57] LABS: MUCUS STRANDS MANY /LPF (Neg); SQUAMOUS EPITHELIAL CELL,UR MANY /LPF (FEW)
[2023-02-17 09:58] LABS: BACTERIA,URINE 2+ /HPF (Neg); CAL OXALATE CRYSTALS 3+ /HPF (NEGATIVE)
[2023-02-17 09:59] LABS: RBC,URINE 0-2 /HPF (0-2); WBC,URINE 0-4 /HPF (0-4)
[2023-02-17 10:10] LABS: BASOPHILS % (AUTO) 0.2 % (0-1); EOSINOPHILS % (AUTO) 0.3 % (0-6); HEMATOCRIT 44.5 % (35.0-45.0); HEMOGLOBIN 15.3 g/dl (12.0-16.0); LYMPHOCYTES # (AUTO) 0.6 X10'3 (1.1-4.8); LYMPHOCYTES % (AUTO) 6.6 % (21-51); MEAN CORPUSCULAR HEMOGLOBIN 37.3 PG (27.0-31.0); MEAN CORPUSCULAR HGB CONC 34.4 g/dL (33.0-36.5); MEAN CORPUSCULAR VOLUME 108.4 FL (78-98); MEAN PLATELET VOLUME 9.9 FL (7.4-10.4); MONOCYTES # (AUTO) 0.8 X10'3 (0-0.9); MONOCYTES % (AUTO) 9.6 % (2-12); NEUTROPHILS # (AUTO) 7.2 X10'3 (1.8-7.7); NEUTROPHILS % (AUTO) 83.3 % (42-75); PLATELET COUNT 139 X10'3 (140-440); WHITE BLOOD COUNT 8.7 X10'3 (4.5-11.0)
[2023-02-17 11:07] LABS: ALANINE AMINOTRANSFERASE 41 U/L (12-78); ALBUMIN 4.3 G/DL (3.4-5.0); ALBUMIN/GLOBULIN RATIO 1.1 (1.1-1.5); ALKALINE PHOSPHATASE 87 IU/L (46-116); ANION GAP 20 (8-16); ASPARTATE AMINO TRANSFERASE 37 U/L (10-37); BILIRUBIN,TOTAL 0.5 MG/DL (0.1-1.0); BLOOD UREA NITROGEN 6 MG/DL (7-18); BUN/CREATININE RATIO 10.3 (10.0-20.0); CALCIUM 9.7 MG/DL (8.5-10.1); CHLORIDE 98 MMOL/L (99-107); CREATININE 0.58 MG/DL (0.40-0.90); GLUCOSE 134 MG/DL (70-104); SODIUM 137 MMOL/L (135-145); TOTAL CARBON DIOXIDE 19.1 MMOL/L (24-32); TOTAL PROTEIN 8.3 G/DL (6.4-8.2); eCRCL 104 ML/MIN; eGFR > 90 ML/MIN
[2023-02-17 11:35] LABS: LIPASE 926 U/L (16-77); POTASSIUM 3.2 MMOL/L (3.5-5.1)
[2023-02-17] MEDS ORDERED: ringers solution, lacted 1,000 ML IV ONE (11:40)
--- NOTE | 2023-02-17 11:58 | NUR ---
PT IN ROOM 4 WITH C/O N/V WITH ABD PAIN THAT STARTED 5 DAYS AGO. MULTIPLE IV ATTEMPTS BY DEACON MCCALLUM, WITH A 20GA IN THE L ARM VIA US.
[2023-02-17] MEDS ORDERED: morphine 4 MG/ML inj SYRINge IV PRN (12:10)
[2023-02-17] MEDS ORDERED: iohexol 300mg/ml 100ml inj. ONE (12:23)
[2023-02-17 12:44] LABS: APTT 25 SECONDS (22-32); PROTHROMBIN TIME 10.7 SECONDS (9.0-12.0)
[2023-02-17 13:01] LABS: AMYLASE 348 U/L (25-115); LACTATE DEHYDROGENASE 131 U/L (81-234)
[2023-02-17 13:20] LABS: LIPASE 665 U/L (16-77)
[2023-02-17] MEDS ORDERED: LIDOcaine 1% 30ml preserv. free vial SQ STA (13:59)
--- NOTE | 2023-02-17 14:00 | NUR ---
PT RESTING QUIETLY, WILL CONTINUE TO MONITOR
[2023-02-17] MEDS ORDERED: ondansetron 4mg/5ml UD cup PO PRN (14:35)
[2023-02-17] MEDS ORDERED: ondansetron/PF 4mg/2ml inj IV ONE (14:40)
[2023-02-17] MEDS ORDERED: CefTRIAXone/D5W-Rocephin 1gm 50 ML IV ONE (16:10)
--- NOTE | 2023-02-17 16:24 | NUR ---
PT SLEEPING, AWOKE EASILY AND FELL RIGHT CLYDE TO SLEEP.
[2023-02-17] MEDS ORDERED: haloperidol lactate 5mg/ml inj IM PRN (16:35)
[2023-02-17] MEDS ORDERED: docusate sod 100mg capsule PO PRN (16:35)
[2023-02-17] MEDS ORDERED: ondansetron/PF 4mg/2ml inj IV PRN (16:35)
[2023-02-17] MEDS ORDERED: magnesium Cl slow-release 64mg tablet PO PRN (16:35)
[2023-02-17] MEDS ORDERED: HYDROmorphone inj. 0.5 MG/0.5 ML DISP.SYRIN IV PRN (16:35)
[2023-02-17] MEDS ORDERED: acetaminophen 325mg tablet PO PRN (16:35)
[2023-02-17] MEDS ORDERED: LORazepam 2 mg/ml vial IV PRN (16:35)
[2023-02-17] MEDS ORDERED: mag hydrox/Alum hydrox/simeth 30ml oral suspension PO PRN (16:35)
[2023-02-17] MEDS ORDERED: dextrose 50%-water 50ml dispensing syringe IV PRN (16:35)
[2023-02-17] MEDS ORDERED: magnesium 4gm in 100ml NS 100 ML IV PRN (16:35)
[2023-02-17] MEDS ORDERED: potassium Cl 40MEQ/1/2NS 520ml 520 ML IV PRN (16:35)
[2023-02-17] MEDS ORDERED: magnesium hydroxide 30ml (MOM) UD suspension PO PRN (16:35)
[2023-02-17] MEDS ORDERED: NO HOME MEDS (16:56)
[2023-02-17] MEDS: normal saline 1000ml 1,000 ML IV SCH (17:38)
--- NOTE | 2023-02-17 19:30 | NUR ---
PT HAS R FEMORAL CENTRAL LINE W TRIPLE LUMEN, PLACED ON PREVIOUS SHIFT (DAY SHIFT 02/17/23 BY MD ELVA)
--- NOTE | 2023-02-17 19:47 | NUR ---
Received report from Anisha MCCALLUM and awaiting patient arrival to unit
[2023-02-17 20:55] VITALS: BP 143/113; PULSE 102; RESP 16; TEMP 97.9; O2SAT 97
[2023-02-17] MEDS: thiamine 100mg/ml 2ml inj. IV SCH (21:11)
[2023-02-17] MEDS: potassium Cl 20 mEq SR tablet PO PRN (21:12)
[2023-02-17 22:00] VITALS: BP 166/107; PULSE 97; RESP 18; TEMP 98; O2SAT 99
[2023-02-17 22:50] VITALS: BP 154/94; PULSE 74
[2023-02-18] MEDS: normal saline 1000ml 1,000 ML IV SCH ×3 (02:35→18:41)
[2023-02-18] MEDS: HYDROcodone/acetaminophen 5mg/325mg tablet PO PRN ×4 (03:43→20:35)
[2023-02-18 06:41] LABS: INR 1.1 INR; PROTHROMBIN TIME 11.3 SECONDS (9.0-12.0)
[2023-02-18 06:42] LABS: BASOPHILS % (AUTO) 0.2 % (0-1); EOSINOPHILS # (AUTO) 0.1 X10'3 (0-0.9); EOSINOPHILS % (AUTO) 0.7 % (0-6); HEMATOCRIT 37.3 % (35.0-45.0); HEMOGLOBIN 12.7 g/dl (12.0-16.0); LYMPHOCYTES % (AUTO) 9.6 % (21-51); MEAN CORPUSCULAR HGB CONC 33.9 g/dL (33.0-36.5); MEAN CORPUSCULAR VOLUME 109.1 FL (78-98); MEAN PLATELET VOLUME 9.7 FL (7.4-10.4); MONOCYTES # (AUTO) 1.5 X10'3 (0-0.9); MONOCYTES % (AUTO) 13.9 % (2-12); NEUTROPHILS # (AUTO) 8.2 X10'3 (1.8-7.7); NEUTROPHILS % (AUTO) 75.6 % (42-75); PLATELET COUNT 135 X10'3 (140-440); RED BLOOD COUNT 3.42 X10'6 (4.20-5.60); RED CELL DISTRIBUTION WIDTH 13.7 % (11.5-14.5); WHITE BLOOD COUNT 10.9 X10'3 (4.5-11.0)
--- NOTE | 2023-02-18 06:46 | NUR ---
Report to Shereen PAPER COATER
--- NOTE | 2023-02-18 06:48 | NUR ---
Call ER for report. RN currently with pt.
[2023-02-18 07:13] LABS: ALANINE AMINOTRANSFERASE 28 U/L (12-78); ALBUMIN 3.1 G/DL (3.4-5.0); ALKALINE PHOSPHATASE 67 IU/L (46-116); AMYLASE 453 U/L (25-115); ANION GAP 13 (8-16); ASPARTATE AMINO TRANSFERASE 21 U/L (10-37); BILIRUBIN,TOTAL 0.4 MG/DL (0.1-1.0); BLOOD UREA NITROGEN 2 MG/DL (7-18); BUN/CREATININE RATIO 3.8 (10.0-20.0); CALCIUM 8.4 MG/DL (8.5-10.1); CHLORIDE 102 MMOL/L (99-107); CREATININE 0.53 MG/DL (0.40-0.90); GLUCOSE 109 MG/DL (70-104); MAGNESIUM 1.5 MG/DL (1.5-2.4); PHOSPHORUS 3.4 MG/DL (2.3-4.5); POTASSIUM 3.1 MMOL/L (3.5-5.1); SODIUM 136 MMOL/L (135-145); TOTAL CARBON DIOXIDE 21.3 MMOL/L (24-32); TOTAL PROTEIN 6.2 G/DL (6.4-8.2); eCRCL 114 ML/MIN; eGFR > 90 ML/MIN
--- NOTE | 2023-02-18 07:14 | NUR ---
Patient in room ORTHO 4021. I have received report from Elliott GUTIERREZ and had the opportunity to ask questions and assume patient care.
[2023-02-18 07:44] LABS: LIPASE 904 U/L (16-77)
[2023-02-18] MEDS ORDERED: LORazepam 2 mg/ml vial IV PRN (09:35)
[2023-02-18] MEDS: folic acid 1mg/0.2ml inj IV SCH (09:50)
[2023-02-18] MEDS: thiamine 100mg/ml 2ml inj. IV SCH ×3 (09:52→20:34)
[2023-02-18 10:00] VITALS: BP 154/93; PULSE 84; RESP 14; TEMP 98; O2SAT 98
[2023-02-18] MEDS: multivitamins, therapeutics tablet PO SCH (10:19)
--- NOTE | 2023-02-18 16:00 | NUR ---
Patient in room ORTHO 4021. I have received report from Shereen GUTIERREZ and had the opportunity to ask questions and assume patient care.
[2023-02-18] MEDS: potassium Cl 20 mEq SR tablet PO PRN ×2 (16:22→20:34)
[2023-02-18 18:00] VITALS: BP 130/94; PULSE 91; RESP 15; TEMP 98; O2SAT 100
--- NOTE | 2023-02-18 18:00 | NUR ---
I have reviewed and agree with interventions, assessments, and documentation by Shereen Graham LVN.
--- NOTE | 2023-02-18 18:34 | NUR ---
Report to July RN
[2023-02-18 22:00] VITALS: BP 141/97; PULSE 83; RESP 18; TEMP 97.8; O2SAT 100
[2023-02-19] MEDS: potassium Cl 20 mEq SR tablet PO PRN ×4 (00:37→19:53)
[2023-02-19] MEDS: HYDROcodone/acetaminophen 5mg/325mg tablet PO PRN ×6 (00:37→19:59)
[2023-02-19] MEDS: normal saline 1000ml 1,000 ML IV SCH (00:40)
[2023-02-19 06:00] VITALS: BP 147/104; PULSE 95; RESP 14; TEMP 97.7; O2SAT 100
--- NOTE | 2023-02-19 06:24 | NUR ---
Patient in room ORTHO 4021. I have received report from XENA Dumont and had the opportunity to ask questions and assume patient care.
[2023-02-19 06:49] LABS: PLATELET COUNT 140 X10'3 (140-440)
[2023-02-19 06:53] LABS: BASOPHILS % (AUTO) 0.3 % (0-1); EOSINOPHILS # (AUTO) 0.2 X10'3 (0-0.9); EOSINOPHILS % (AUTO) 3.3 % (0-6); HEMATOCRIT 33.5 % (35.0-45.0); HEMOGLOBIN 11.5 g/dl (12.0-16.0); LYMPHOCYTES # (AUTO) 1.1 X10'3 (1.1-4.8); LYMPHOCYTES % (AUTO) 16.4 % (21-51); MEAN CORPUSCULAR HEMOGLOBIN 37.5 PG (27.0-31.0); MEAN CORPUSCULAR HGB CONC 34.3 g/dL (33.0-36.5); MEAN CORPUSCULAR VOLUME 109.1 FL (78-98); MEAN PLATELET VOLUME 9.8 FL (7.4-10.4); MONOCYTES % (AUTO) 15.3 % (2-12); NEUTROPHILS # (AUTO) 4.3 X10'3 (1.8-7.7); NEUTROPHILS % (AUTO) 64.7 % (42-75); RED BLOOD COUNT 3.07 X10'6 (4.20-5.60); RED CELL DISTRIBUTION WIDTH 14.2 % (11.5-14.5); WHITE BLOOD COUNT 6.6 X10'3 (4.5-11.0)
[2023-02-19 07:00] LABS: INR 1.1 INR; PROTHROMBIN TIME 11.5 SECONDS (9.0-12.0)
[2023-02-19 07:26] LABS: ALANINE AMINOTRANSFERASE 20 U/L (12-78); ALBUMIN 2.7 G/DL (3.4-5.0); ALBUMIN/GLOBULIN RATIO 0.9 (1.1-1.5); ALKALINE PHOSPHATASE 65 IU/L (46-116); AMYLASE 255 U/L (25-115); ANION GAP 7 (8-16); ASPARTATE AMINO TRANSFERASE 17 U/L (10-37); BILIRUBIN,TOTAL 0.4 MG/DL (0.1-1.0); BLOOD UREA NITROGEN 1 MG/DL (7-18); BUN/CREATININE RATIO 2.5 (10.0-20.0); CALCIUM 8.4 MG/DL (8.5-10.1); CHLORIDE 105 MMOL/L (99-107); GLUCOSE 88 MG/DL (70-104); MAGNESIUM 1.6 MG/DL (1.5-2.4); PHOSPHORUS 2.8 MG/DL (2.3-4.5); SODIUM 138 MMOL/L (135-145); TOTAL PROTEIN 5.6 G/DL (6.4-8.2); eCRCL 151 ML/MIN; eGFR > 90 ML/MIN
[2023-02-19 07:29] LABS: POTASSIUM 2.9 MMOL/L (3.5-5.1)
--- NOTE | 2023-02-19 07:35 | NUR ---
MESSAGE: [place]/neuro- [id number] E[address] Joseph critical lab value- K 2.9, I will replace based on protocol stat. Thank you
[2023-02-19] MEDS: folic acid 1mg/0.2ml inj IV SCH (07:46)
[2023-02-19] MEDS: thiamine 100mg/ml 2ml inj. IV SCH ×3 (07:46→19:59)
[2023-02-19] MEDS: multivitamins, therapeutics tablet PO SCH (07:46)
[2023-02-19 07:48] LABS: PLATELET ESTIMATE NORMAL; SMUDGE CELLS 2+; TOTAL CELLS COUNTED 100
[2023-02-19 07:57] LABS: LIPASE 400 U/L (16-77)
[2023-02-19] MEDS ORDERED: Potassium Cl inj 20 MEQ in normal saline 1000ml 990 ML IV SCH (08:50)
[2023-02-19 10:00] VITALS: BP 127/91; PULSE 98; RESP 14; TEMP 97.5; O2SAT 100
[2023-02-19] MEDS: potassium Cl 20mEq in NS 1,000 ML IV SCH ×3 (14:24→21:49)
[2023-02-19] MEDS ORDERED: morphine 2 MG/ML inj. syringe IV PRN (17:00)
[2023-02-19] MEDS ORDERED: LORazepam 2 mg/ml vial IV PRN (17:00)
[2023-02-19 18:00] VITALS: BP 119/84; PULSE 96; RESP 18; TEMP 97.6; O2SAT 100
--- NOTE | 2023-02-19 18:40 | NUR ---
Patient in room ORTHO 4021. I have received report from XENA Lo and had the opportunity to ask questions and assume patient care.
--- NOTE | 2023-02-19 18:43 | NUR ---
Problems reprioritized. Patient report given, questions answered & plan of care reviewed with XENA Arango.
[2023-02-19 20:20] VITALS: RESP 18; O2SAT 100
[2023-02-19 22:00] VITALS: BP 114/80; PULSE 93; RESP 14; TEMP 97.9; O2SAT 97
[2023-02-19 23:09] VITALS: BP 119/84; PULSE 96; RESP 18; TEMP 97.6; O2SAT 100
[2023-02-20 04:58] LABS: BASOPHILS % (AUTO) 0.6 % (0-1); EOSINOPHILS # (AUTO) 0.2 X10'3 (0-0.9); EOSINOPHILS % (AUTO) 3.4 % (0-6); HEMATOCRIT 32.2 % (35.0-45.0); HEMOGLOBIN 10.9 g/dl (12.0-16.0); LYMPHOCYTES % (AUTO) 19.5 % (21-51); MEAN CORPUSCULAR HEMOGLOBIN 37.1 PG (27.0-31.0); MEAN CORPUSCULAR HGB CONC 33.9 g/dL (33.0-36.5); MEAN CORPUSCULAR VOLUME 109.5 FL (78-98); MEAN PLATELET VOLUME 9.3 FL (7.4-10.4); MONOCYTES # (AUTO) 0.8 X10'3 (0-0.9); MONOCYTES % (AUTO) 15.2 % (2-12); NEUTROPHILS # (AUTO) 3.2 X10'3 (1.8-7.7); NEUTROPHILS % (AUTO) 61.3 % (42-75); PLATELET COUNT 177 X10'3 (140-440); RED BLOOD COUNT 2.94 X10'6 (4.20-5.60); RED CELL DISTRIBUTION WIDTH 13.9 % (11.5-14.5); WHITE BLOOD COUNT 5.3 X10'3 (4.5-11.0)
[2023-02-20 05:07] LABS: INR 1.1 INR; PROTHROMBIN TIME 11.3 SECONDS (9.0-12.0)
[2023-02-20 05:14] LABS: ALANINE AMINOTRANSFERASE 22 U/L (12-78); ALBUMIN 2.6 G/DL (3.4-5.0); ALBUMIN/GLOBULIN RATIO 0.9 (1.1-1.5); ALKALINE PHOSPHATASE 70 IU/L (46-116); AMYLASE 141 U/L (25-115); ANION GAP 7 (8-16); ASPARTATE AMINO TRANSFERASE 24 U/L (10-37); BILIRUBIN,TOTAL 0.3 MG/DL (0.1-1.0); CALCIUM 8.6 MG/DL (8.5-10.1); CHLORIDE 107 MMOL/L (99-107); CREATININE 0.42 MG/DL (0.40-0.90); GLUCOSE 102 MG/DL (70-104); MAGNESIUM 1.6 MG/DL (1.5-2.4); PHOSPHORUS 2.6 MG/DL (2.3-4.5); POTASSIUM 4.2 MMOL/L (3.5-5.1); SODIUM 140 MMOL/L (135-145); TOTAL CARBON DIOXIDE 26.5 MMOL/L (24-32); TOTAL PROTEIN 5.6 G/DL (6.4-8.2); eCRCL 144 ML/MIN; eGFR > 90 ML/MIN
[2023-02-20 05:21] LABS: LIPASE 320 U/L (16-77)
[2023-02-20 05:22] LABS: BLOOD UREA NITROGEN 0 MG/DL (7-18)
[2023-02-20 06:00] VITALS: BP 120/89; PULSE 88; RESP 14; TEMP 98.4; O2SAT 99
--- NOTE | 2023-02-20 06:32 | NUR ---
Problems reprioritized. Patient report given, questions answered & plan of care reviewed with XENA Lo.
--- NOTE | 2023-02-20 06:36 | NUR ---
Patient in room ORTHO 4021. I have received report from XENA Arango and had the opportunity to ask questions and assume patient care.
[2023-02-20] MEDS: thiamine 100mg/ml 2ml inj. IV SCH ×2 (07:03→12:34)
[2023-02-20] MEDS: folic acid 1mg/0.2ml inj IV SCH (07:04)
[2023-02-20] MEDS: HYDROcodone/acetaminophen 5mg/325mg tablet PO PRN ×2 (07:04→12:36)
[2023-02-20] MEDS: multivitamins, therapeutics tablet PO SCH (07:04)
[2023-02-20] MEDS: potassium Cl 20mEq in NS 1,000 ML IV SCH (07:05)
[2023-02-20 07:30] VITALS: RESP 16; O2SAT 99
--- NOTE | 2023-02-20 08:17 | NUR ---
Student documentation: I have reviewed all interventions, assessments performed and documented by [place] [employer] Student. Student Medication Administration: For medication-passes by student of [facility] program in the time frame of 0630 to 1300, medications were reviewed, dispensed, administered and documented per hospital policy.
[2023-02-20 10:00] VITALS: BP 122/86; PULSE 85; RESP 16; TEMP 98; O2SAT 98
[2023-02-20 12:36] VITALS: RESP 15
[2023-02-20] MEDS ORDERED: FOLI0.4T6 PO (12:48)
[2023-02-20] MEDS ORDERED: NALT50TA PO (12:48)
[2023-02-20] MEDS ORDERED: PANT40TA54 PO (12:48)
[2023-02-20] MEDS ORDERED: THIA50TA10 PO (12:48)
--- NOTE | 2023-02-20 14:49 | NUR ---
pt given discharge packet and was able to ask questions upon discharge. Pt was wheelchaired to lobby with all of her belongings in stable condition and in no distress. Pt left in private vehicle with her spouse.
== END 2023-02-20 14:40 | disposition home or self-care (01) | DRG 282 ==
LOC: ER 08:53 → ED HOLD 16:45 → UNDOADMIN 16:45 → ED HOLD 17:43 → ORTHO 4S 19:55
PROVIDERS: ADMIT Family Medicine; ATTEND Family Medicine
PROC: BW211ZZ Computerized Tomography (CT Scan) of Abdomen and Pelvis using Low Osmolar Contrast (ICD-10-PCS; principal; 2023-02-17)
DX: K85.90 Acute pancreatitis without necrosis or infection, unspecified (principal); E87.6 Hypokalemia; F10.229 Alcohol dependence with intoxication, unspecified; N39.0 Urinary tract infection, site not specified; Y90.9 Presence of alcohol in blood, level not specified; Z80.9 Family history of malignant neoplasm, unspecified; Z82.49 Family history of ischemic heart disease and other diseases of the circulatory system; Z81.8 Family history of other mental and behavioral disorders; Z88.5 Allergy status to narcotic agent
CPT/HCPCS: 36415; 74178; 80053; 81001; 81025; 82150; 82948; 83605; 83615; 83690; 83735; 84100; 84132; 84145; 85007; 85025; 85610; 85730; 87081; 99285; A6449; G0378; J0696; J1170; J2060; J2270; J2405; J3411; J3480; J3490; J7030; J7120; Q9967

== ENCOUNTER 2023-09-14 07:27 | Inpatient (IN) | payer MEDICAID ==
[~2023-09-14] VITALS: Ht 152.4 cm; Wt 47.5 kg
[~2023-09-14 07:27] MED LIST changes: +NALT50TA PO; -ONDA4TAB12 PO; +PANT40TA54 PO; +THIA50TA10 PO
[2023-09-14 08:30] LABS: BILIRUBIN,URINE MODERATE (Neg); CLARITY,URINE CLEAR (Clear); COLOR,URINE YELLOW (Yellow); GLUCOSE, URINE NEGATIVE (Neg); KETONES,URINE >=80 mg/dl (Neg); LEUKOCYTE ESTERASE ,URINE NEGATIVE (Neg); NITRITES, URINE NEGATIVE (Neg); OCCULT BLOOD,URINE LARGE (Neg); PROTEIN,URINE >=300 mg/dl (Neg); UROBILINOGEN,URINE 0.2 E.U/dL (0.2-1.0)
[2023-09-14 08:33] LABS: URINE HCG NEGATIVE (NEG)
[2023-09-14 08:34] LABS: UA COLLECTION TYPE CLN CATCH MIDSTREAM
[2023-09-14 08:35] LABS: BACTERIA,URINE NONE SEEN /HPF (Neg); MUCUS STRANDS NONE SEEN /LPF (Neg); RBC,URINE NONE SEEN /HPF (0-2); SQUAMOUS EPITHELIAL CELL,UR FEW /LPF (FEW); WBC,URINE 0-4 /HPF (0-4)
[2023-09-14] MEDS: ondansetron/PF 4mg/2ml inj IV ONE (08:48)
[2023-09-14] MEDS: thiamine 100mg/ml 2ml inj. IV ONE (08:49)
[2023-09-14] MEDS ORDERED: iohexol 300mg/ml 100ml inj. ONE (08:50)
[2023-09-14] MEDS: HYDROmorphone 1 mg/ml syringe IV ONE (08:51)
[2023-09-14] MEDS: ringers solution, lacted 1,000 ML IV ONE ×2 (08:58→10:43)
[2023-09-14 09:14] LABS: BASOPHILS % (AUTO) 0.2 % (0-1); EOSINOPHILS % (AUTO) 0 % (0-6); HEMOGLOBIN 14.9 g/dl (12.0-16.0); LYMPHOCYTES # (AUTO) 0.5 X10'3 (1.1-4.8); LYMPHOCYTES % (AUTO) 4.9 % (21-51); MEAN CORPUSCULAR HEMOGLOBIN 36.9 PG (27.0-31.0); MEAN CORPUSCULAR HGB CONC 32.4 g/dL (33.0-36.5); MEAN PLATELET VOLUME 11.1 FL (7.4-10.4); MONOCYTES # (AUTO) 0.5 X10'3 (0-0.9); MONOCYTES % (AUTO) 4.8 % (2-12); NEUTROPHILS # (AUTO) 9.5 X10'3 (1.8-7.7); NEUTROPHILS % (AUTO) 90.1 % (42-75); PLATELET COUNT 80 X10'3 (140-440); RED BLOOD COUNT 4.04 X10'6 (4.20-5.60); RED CELL DISTRIBUTION WIDTH 13.9 % (11.5-14.5); WHITE BLOOD COUNT 10.6 X10'3 (4.5-11.0)
[2023-09-14 09:26] LABS: ACETONE MODERATE (NEGATIVE)
[2023-09-14] MEDS: folic acid 1mg/0.2ml inj IV ONE (09:41)
[2023-09-14 09:42] LABS: ALANINE AMINOTRANSFERASE 117 U/L (12-78); ALBUMIN/GLOBULIN RATIO 1.1 (1.1-1.5); ALKALINE PHOSPHATASE 100 IU/L (46-116); ANION GAP 34 (8-16); ASPARTATE AMINO TRANSFERASE 132 U/L (10-37); BILIRUBIN,TOTAL 0.9 MG/DL (0.1-1.0); BLOOD UREA NITROGEN 7 MG/DL (7-18); BUN/CREATININE RATIO 6.9 (10.0-20.0); CALCIUM 9.4 MG/DL (8.5-10.1); CHLORIDE 98 MMOL/L (99-107); CREATININE 1.01 MG/DL (0.40-0.90); FREE T4 (FREE THYROXINE) 0.64 NG/DL (0.73-1.40); GLUCOSE 274 MG/DL (70-104); LIPASE 178 U/L (16-77); MAGNESIUM 2.5 MG/DL (1.5-2.4); SODIUM 137 MMOL/L (135-145); THYROID STIMULATING HORMONE 1.78 ulU/ml (0.34-4.50); TOTAL PROTEIN 9.7 G/DL (6.4-8.2); eCRCL 55 ML/MIN; eGFR 63 ML/MIN
[2023-09-14 09:50] LABS: POTASSIUM 3.9 MMOL/L (3.5-5.1)
[2023-09-14 09:57] LABS: ETHANOL < 10 MG/DL (<10)
[2023-09-14 09:58] LABS: TOTAL CARBON DIOXIDE 5.1 MMOL/L (24-32)
[2023-09-14 10:21] LABS: PLATELET ESTIMATE DECREASED; TOTAL CELLS COUNTED 100
[2023-09-14] MEDS: normal saline 1000ml 1,000 ML IV SCH (11:30)
[2023-09-14] MEDS ORDERED: magnesium hydroxide 30ml (MOM) UD suspension PO PRN (14:20)
[2023-09-14] MEDS ORDERED: dicyclomine 10 MG capsule PO PRN (14:20)
[2023-09-14] MEDS ORDERED: acetaminophen 325mg tablet PO PRN (14:20)
[2023-09-14] MEDS ORDERED: mag hydrox/Alum hydrox/simeth 30ml oral suspension PO PRN (14:20)
[2023-09-14] MEDS ORDERED: magnesium Cl slow-release 64mg tablet PO PRN (14:20)
[2023-09-14] MEDS ORDERED: magnesium 4gm in 100ml NS 100 ML IV PRN (14:20)
[2023-09-14] MEDS ORDERED: magnesium 2GM in 50ml NS 50 ML IV PRN (14:20)
[2023-09-14] MEDS ORDERED: haloperidol lactate 5mg/ml inj IM PRN (14:20)
[2023-09-14] MEDS ORDERED: potassium Cl 20 mEq SR tablet PO PRN (14:20)
[2023-09-14] MEDS ORDERED: LORazepam 2 mg/ml vial IV PRN (14:20)
[2023-09-14] MEDS ORDERED: potassium Cl 40MEQ/1/2NS 520ml 520 ML IV PRN (14:20)
[2023-09-14] MEDS: LORazepam 2 mg/ml vial IV ONE (14:43)
[2023-09-14] MEDS: haloperidol 5mg tablet PO PRN (15:15)
[2023-09-14 15:35] VITALS: BP 143/95; PULSE 86; RESP 18; TEMP 97.8; O2SAT 99
[2023-09-14] MEDS: cyanocobalamin 1,000 mcg/ml inj IM ONE (17:06)
[2023-09-14] MEDS: ondansetron/PF 4mg/2ml inj IV PRN (17:54)
[2023-09-14 18:00] VITALS: BP 155/88; PULSE 79; RESP 14; TEMP 97.1; O2SAT 100
[2023-09-14 18:02] LABS: HEMOGLOBIN A1C 4.8 % (4.5-6.2)
[2023-09-14 18:03] LABS: ALBUMIN 3.7 G/DL (3.4-5.0); ANION GAP 20 (8-16); BLOOD UREA NITROGEN 2 MG/DL (7-18); BUN/CREATININE RATIO 3.1 (10.0-20.0); CALCIUM 8.1 MG/DL (8.5-10.1); CHLORIDE 108 MMOL/L (99-107); CREATININE 0.64 MG/DL (0.40-0.90); GLUCOSE 120 MG/DL (70-104); POTASSIUM 3.5 MMOL/L (3.5-5.1); SODIUM 140 MMOL/L (135-145); eCRCL 90 ML/MIN; eGFR > 90 ML/MIN
[2023-09-14 18:04] LABS: TOTAL CARBON DIOXIDE 12.1 MMOL/L (24-32)
[2023-09-14] MEDS: lactose-reduced food (Ensure Enlive) - 237ml bottle PO SCH (18:26)
[2023-09-14] MEDS: heparin, porcine 5000 units/ml vial SQ SCH (19:54)
[2023-09-14 20:00] VITALS: RESP 18; O2SAT 99
[2023-09-14] MEDS: K and/or MAG REPLACEMENT MC SCH (20:00)
[2023-09-14] MEDS: sodium phosphate inj. 15 MMOL in dextrose 5%-water 250 ML IV ONE (20:25)
[2023-09-14 22:00] VITALS: BP 147/80; PULSE 75; RESP 18; TEMP 97.3; O2SAT 100
[2023-09-15] MEDS: traMADol 50MG tablet PO PRN (02:57)
[2023-09-15 05:00] VITALS: BP 145/88; PULSE 79; RESP 16; TEMP 98.2; O2SAT 100
[2023-09-15 08:21] LABS: ALANINE AMINOTRANSFERASE 69 U/L (12-78); ALBUMIN 3.9 G/DL (3.4-5.0); ALBUMIN/GLOBULIN RATIO 1.1 (1.1-1.5); ALKALINE PHOSPHATASE 70 IU/L (46-116); ANION GAP 14 (8-16); ASPARTATE AMINO TRANSFERASE 58 U/L (10-37); BASOPHILS % (AUTO) 0.1 % (0-1); BILIRUBIN,TOTAL 0.9 MG/DL (0.1-1.0); BLOOD UREA NITROGEN 1 MG/DL (7-18); BUN/CREATININE RATIO 2.4 (10.0-20.0); CALCIUM 8.7 MG/DL (8.5-10.1); CHLORIDE 100 MMOL/L (99-107); CHOL/HDL RATIO 3.9 (0.00-4.99); CHOLESTEROL 181 MG/DL (0-200); CREATININE 0.42 MG/DL (0.40-0.90); EOSINOPHILS % (AUTO) 0.1 % (0-6); GLUCOSE 100 MG/DL (70-104); HDL CHOLESTEROL 47 MG/DL (35-60); LDL CHOLESTEROL 103 MG/DL (50-100); MAGNESIUM 1.7 MG/DL (1.5-2.4); MEAN CORPUSCULAR HEMOGLOBIN 37.1 PG (27.0-31.0); PHOSPHORUS 1.6 MG/DL (2.3-4.5); PLATELET COUNT 68 X10'3 (140-440); SODIUM 137 MMOL/L (135-145); TOTAL CARBON DIOXIDE 23.5 MMOL/L (24-32); TOTAL PROTEIN 7.6 G/DL (6.4-8.2); TRIGLYCERIDES 89 MG/DL (20-135); eCRCL 137 ML/MIN; eGFR > 90 ML/MIN
[2023-09-15 08:25] LABS: HEMATOCRIT 39.7 % (35.0-45.0); HEMOGLOBIN 13.6 g/dl (12.0-16.0); LYMPHOCYTES # (AUTO) 1.3 X10'3 (1.1-4.8); MEAN CORPUSCULAR HGB CONC 34.3 g/dL (33.0-36.5); MEAN CORPUSCULAR VOLUME 108.3 FL (78-98); MEAN PLATELET VOLUME 10.7 FL (7.4-10.4); MONOCYTES # (AUTO) 0.8 X10'3 (0-0.9); MONOCYTES % (AUTO) 7.4 % (2-12); NEUTROPHILS # (AUTO) 8.4 X10'3 (1.8-7.7); NEUTROPHILS % (AUTO) 80.4 % (42-75); RED BLOOD COUNT 3.67 X10'6 (4.20-5.60); WHITE BLOOD COUNT 10.4 X10'3 (4.5-11.0)
[2023-09-15 08:30] VITALS: RESP 14; O2SAT 100
[2023-09-15] MEDS: pantoprazole 40 MG vial IV SCH (08:42)
[2023-09-15] MEDS: multivitamins, therapeutics tablet PO SCH (08:43)
[2023-09-15] MEDS: potassium Cl 20 mEq SR tablet PO PRN (08:43)
[2023-09-15] MEDS: nicotine 21mg patch - 24 hr TD SCH (08:43)
[2023-09-15] MEDS: LORazepam 1 MG tablet PO PRN (08:43)
[2023-09-15] MEDS: normal saline 1000ml 1,000 ML IV SCH (09:40)
[2023-09-15 10:00] VITALS: BP 131/80; PULSE 110; RESP 14; TEMP 98.6; O2SAT 100
[2023-09-15] MEDS: Neutra Phos packet PO PRN (11:07)
[2023-09-15] MEDS ORDERED: MULT-25 PO (12:40)
[2023-09-15] MEDS ORDERED: FOLI0.4T6 PO (12:40)
[2023-09-15] MEDS ORDERED: PANT40TA54 PO (12:40)
[2023-09-15] MEDS ORDERED: THIA50TA10 PO (12:40)
[2023-09-15] MEDS ORDERED: LORA-269 PO (13:02)
[2023-09-18] MEDS ORDERED: thiamine 100mg tablet PO SCH (08:00)
[2023-09-19] MEDS ORDERED: folic acid 1mg tablet PO SCH (08:00)
== END 2023-09-15 13:52 | disposition home or self-care (01) | DRG 241 ==
LOC: ER 07:28 → ED HOLD 13:24 → ORTHO 4S 15:08
PROVIDERS: ADMIT Internal Medicine; ATTEND Internal Medicine
PROC: BW211ZZ Computerized Tomography (CT Scan) of Abdomen and Pelvis using Low Osmolar Contrast (ICD-10-PCS; principal; 2023-09-14)
DX: K29.20 Alcoholic gastritis without bleeding (principal); N17.0 Acute kidney failure with tubular necrosis; E72.20 Disorder of urea cycle metabolism, unspecified; E87.29 Other acidosis; E83.39 Other disorders of phosphorus metabolism; D69.6 Thrombocytopenia, unspecified; E03.9 Hypothyroidism, unspecified; E87.6 Hypokalemia; E86.0 Dehydration; F10.139 Alcohol abuse with withdrawal, unspecified; Y90.9 Presence of alcohol in blood, level not specified; D75.89 Other specified diseases of blood and blood-forming organs; F17.200 Nicotine dependence, unspecified, uncomplicated; R73.9 Hyperglycemia, unspecified; Z88.5 Allergy status to narcotic agent; Z79.899 Other long term (current) drug therapy; Z82.49 Family history of ischemic heart disease and other diseases of the circulatory system; Z81.8 Family history of other mental and behavioral disorders; Z80.9 Family history of malignant neoplasm, unspecified
CPT/HCPCS: 36415; 74177; 80048; 80053; 80061; 80320; 81001; 81025; 82009; 82140; 82607; 82948; 83036; 83690; 83735; 84100; 84439; 84443; 85007; 85025; 87081; 96361; 96374; 96375; 99291; C9113; G0378; J1170; J2405; J3411; J3420; J3490; J7030; J7060; J7120; Q9967

== ENCOUNTER 2023-12-19 19:36 | Inpatient (IN) | payer MEDICAID ==
[~2023-12-19] VITALS: Ht 152.4 cm; Wt 46.6 kg
[~2023-12-19 19:36] MED LIST changes: +LORA-269 PO; +MULT-25 PO; -NALT50TA PO; +NALT50TA5 PO
[2023-12-19] MEDS: normal saline 1000ml 1,000 ML IV ONE ×2 (20:33→22:37)
[2023-12-19] MEDS: phenobarbital sod 130mg/ml inj. IV ONE (20:34)
[2023-12-19] MEDS: thiamine 100mg/ml 2ml inj. IV ONE (20:34)
[2023-12-19 21:28] LABS: BASOPHILS % (AUTO) 0.2 % (0-1); EOSINOPHILS % (AUTO) 0 % (0-6); HEMATOCRIT 36.4 % (35.0-45.0); HEMOGLOBIN 12.4 g/dl (12.0-16.0); LYMPHOCYTES # (AUTO) 0.4 X10'3 (1.1-4.8); LYMPHOCYTES % (AUTO) 5.8 % (21-51); MEAN CORPUSCULAR HEMOGLOBIN 36.3 PG (27.0-31.0); MEAN CORPUSCULAR HGB CONC 34.1 g/dL (33.0-36.5); MEAN CORPUSCULAR VOLUME 106.6 FL (78-98); MEAN PLATELET VOLUME 9.6 FL (7.4-10.4); MONOCYTES # (AUTO) 0.7 X10'3 (0-0.9); MONOCYTES % (AUTO) 10.2 % (2-12); NEUTROPHILS # (AUTO) 5.8 X10'3 (1.8-7.7); NEUTROPHILS % (AUTO) 83.8 % (42-75); PLATELET COUNT 84 X10'3 (140-440); RED BLOOD COUNT 3.41 X10'6 (4.20-5.60); RED CELL DISTRIBUTION WIDTH 13.8 % (11.5-14.5); WHITE BLOOD COUNT 6.9 X10'3 (4.5-11.0)
[2023-12-19 21:34] LABS: ALANINE AMINOTRANSFERASE 46 U/L (12-78); ALBUMIN 3.7 G/DL (3.4-5.0); ALBUMIN/GLOBULIN RATIO 1.2 (1.1-1.5); ALKALINE PHOSPHATASE 71 IU/L (46-116); ANION GAP 11 (8-16); ASPARTATE AMINO TRANSFERASE 55 U/L (10-37); BILIRUBIN,TOTAL 0.9 MG/DL (0.1-1.0); BLOOD UREA NITROGEN 2 MG/DL (7-18); BUN/CREATININE RATIO 3.1 (10.0-20.0); CALCIUM 8.6 MG/DL (8.5-10.1); CHLORIDE 101 MMOL/L (99-107); CREATININE 0.64 MG/DL (0.40-0.90); GLUCOSE 190 MG/DL (70-104); POTASSIUM 3.3 MMOL/L (3.5-5.1); SODIUM 138 MMOL/L (135-145); TOTAL CARBON DIOXIDE 25.6 MMOL/L (24-32); TOTAL PROTEIN 6.9 G/DL (6.4-8.2); eCRCL 89 ML/MIN; eGFR > 90 ML/MIN
[2023-12-19 21:37] LABS: ETHANOL < 10 MG/DL (<10)
[2023-12-19] MEDS ORDERED: magnesium sulf-water 4G/100mL 100 ML IV PRN (23:05)
[2023-12-19] MEDS ORDERED: potassium Cl 40MEQ/1/2NS 520ml 520 ML IV PRN (23:05)
[2023-12-19] MEDS ORDERED: potassium Cl 20 mEq SR tablet PO PRN (23:05)
[2023-12-19] MEDS ORDERED: magnesium Cl slow-release 64mg tablet PO PRN (23:05)
[2023-12-19] MEDS ORDERED: mag hydrox/Alum hydrox/simeth 30ml oral suspension PO PRN (23:05)
[2023-12-19] MEDS ORDERED: acetaminophen 325mg tablet PO PRN (23:05)
[2023-12-19] MEDS ORDERED: haloperidol 5mg tablet PO PRN (23:05)
[2023-12-19] MEDS ORDERED: ondansetron/PF 4mg/2ml inj IV PRN (23:05)
[2023-12-19] MEDS ORDERED: magnesium hydroxide 30ml (MOM) UD suspension PO PRN (23:05)
[2023-12-19] MEDS ORDERED: magnesium sulf-water 2g/50mL 50 ML IV PRN (23:05)
[2023-12-19] MEDS: nicotine 14mg patch - 24hr TD SCH (23:46)
[2023-12-20 01:17] LABS: URINE HCG NEGATIVE (NEG)
[2023-12-20 01:21] LABS: BILIRUBIN,URINE NEGATIVE (Neg); COLOR,URINE YELLOW (Yellow); GLUCOSE, URINE 500 mg/dl (Neg); KETONES,URINE TRACE mg/dl (Neg); LEUKOCYTE ESTERASE ,URINE NEGATIVE (Neg); NITRITES, URINE NEGATIVE (Neg); OCCULT BLOOD,URINE NEGATIVE (Neg); PH,URINE 7.5 (4.8-8.0); PROTEIN,URINE NEGATIVE (Neg); UROBILINOGEN,URINE 0.2 E.U/dL (0.2-1.0)
[2023-12-20 01:29] LABS: UA COLLECTION TYPE CLN CATCH MIDSTREAM
[2023-12-20 01:31] LABS: CLARITY,URINE SLIGHTLY CLOUDY (Clear)
[2023-12-20 01:32] LABS: BACTERIA,URINE FEW /HPF (Neg); SQUAMOUS EPITHELIAL CELL,UR FEW /LPF (FEW); WBC,URINE 0-4 /HPF (0-4)
[2023-12-20 01:33] LABS: TRANSITIONAL EPI CELLS,URINE FEW /HPF; YEAST FEW /HPF (NEGATIVE)
[2023-12-20] MEDS: folic acid 1mg/0.2ml inj IV SCH (01:36)
[2023-12-20] MEDS: normal saline 1000ml 1,000 ML IV SCH (01:37)
[2023-12-20 07:43] VITALS: BP 124/80; PULSE 88; RESP 27; TEMP 98.1; O2SAT 100
[2023-12-20] MEDS: K and/or MAG REPLACEMENT MC SCH (07:58)
[2023-12-20] MEDS: docusate sod 100mg capsule PO SCH (08:00)
[2023-12-20] MEDS ORDERED: LORazepam 2 mg/ml vial IV PRN ×2 (08:35)
[2023-12-20] MEDS ORDERED: haloperidol lactate 5mg/ml inj IM PRN (08:35)
[2023-12-20] MEDS: thiamine 100mg/ml 2ml inj. IV SCH (09:33)
[2023-12-20] MEDS: multivitamins, therapeutics tablet PO SCH (09:33)
[2023-12-20] MEDS: LORazepam 2 mg/ml vial IV PRN (09:45)
[2023-12-20 10:00] VITALS: BP 110/84; PULSE 93; RESP 26; TEMP 97.6; O2SAT 99
[2023-12-20 12:09] LABS: ALANINE AMINOTRANSFERASE 40 U/L (12-78); ALBUMIN 3.5 G/DL (3.4-5.0); ALKALINE PHOSPHATASE 66 IU/L (46-116); ANION GAP 15 (8-16); ASPARTATE AMINO TRANSFERASE 53 U/L (10-37); BLOOD UREA NITROGEN 1 MG/DL (7-18); BUN/CREATININE RATIO 3.1 (10.0-20.0); CALCIUM 8.7 MG/DL (8.5-10.1); CHLORIDE 104 MMOL/L (99-107); CREATININE 0.32 MG/DL (0.40-0.90); GLUCOSE 81 MG/DL (70-104); LIPASE 22 U/L (16-77); PHOSPHORUS 2.6 MG/DL (2.3-4.5); POTASSIUM 3.2 MMOL/L (3.5-5.1); SODIUM 139 MMOL/L (135-145); TOTAL CARBON DIOXIDE 20.1 MMOL/L (24-32); TOTAL PROTEIN 6.9 G/DL (6.4-8.2); eCRCL 178 ML/MIN; eGFR > 90 ML/MIN
[2023-12-20] MEDS: potassium Cl 20 mEq SR tablet PO PRN (12:33)
[2023-12-20 13:17] LABS: BASOPHILS % (AUTO) 0.4 % (0-1); EOSINOPHILS % (AUTO) 0.4 % (0-6); HEMATOCRIT 38.2 % (35.0-45.0); MEAN CORPUSCULAR HGB CONC 34.1 g/dL (33.0-36.5); MEAN PLATELET VOLUME 10.5 FL (7.4-10.4); PLATELET COUNT 91 X10'3 (140-440); RED BLOOD COUNT 3.56 X10'6 (4.20-5.60)
[2023-12-20 13:20] LABS: HEMOGLOBIN 13.1 g/dl (12.0-16.0); LYMPHOCYTES # (AUTO) 1.5 X10'3 (1.1-4.8); LYMPHOCYTES % (AUTO) 25.5 % (21-51); MEAN CORPUSCULAR HEMOGLOBIN 36.6 PG (27.0-31.0); MEAN CORPUSCULAR VOLUME 107.3 FL (78-98); MONOCYTES # (AUTO) 0.4 X10'3 (0-0.9); MONOCYTES % (AUTO) 7.5 % (2-12); NEUTROPHILS # (AUTO) 3.8 X10'3 (1.8-7.7); NEUTROPHILS % (AUTO) 66.2 % (42-75); RED CELL DISTRIBUTION WIDTH 13.2 % (11.5-14.5); WHITE BLOOD COUNT 5.8 X10'3 (4.5-11.0)
[2023-12-20 13:25] LABS: INR 1.1 INR; PROTHROMBIN TIME 11.2 SECONDS (9.0-12.0)
[2023-12-20 18:00] VITALS: BP 100/75; PULSE 86; RESP 14; TEMP 97.5; O2SAT 99
[2023-12-20 20:00] VITALS: RESP 16; O2SAT 99
[2023-12-20 22:00] VITALS: BP 127/87; PULSE 105; RESP 16; TEMP 98.4; O2SAT 99
[2023-12-21 06:00] VITALS: BP 92/62; PULSE 64; RESP 16; TEMP 97.5; O2SAT 90
[2023-12-21 06:51] LABS: BASOPHILS % (AUTO) 0.6 % (0-1); EOSINOPHILS # (AUTO) 0.1 X10'3 (0-0.9); HEMOGLOBIN 13.2 g/dl (12.0-16.0); LYMPHOCYTES # (AUTO) 1.7 X10'3 (1.1-4.8); MEAN CORPUSCULAR HGB CONC 34.2 g/dL (33.0-36.5); MEAN PLATELET VOLUME 10.8 FL (7.4-10.4); PLATELET COUNT 85 X10'3 (140-440); RED BLOOD COUNT 3.55 X10'6 (4.20-5.60)
[2023-12-21 06:52] LABS: HEMATOCRIT 38.6 % (35.0-45.0); LYMPHOCYTES % (AUTO) 32.1 % (21-51); MEAN CORPUSCULAR HEMOGLOBIN 37.2 PG (27.0-31.0); MEAN CORPUSCULAR VOLUME 108.8 FL (78-98); MONOCYTES # (AUTO) 0.6 X10'3 (0-0.9); MONOCYTES % (AUTO) 10.5 % (2-12); NEUTROPHILS % (AUTO) 55.8 % (42-75); RED CELL DISTRIBUTION WIDTH 13.7 % (11.5-14.5); WHITE BLOOD COUNT 5.4 X10'3 (4.5-11.0)
[2023-12-21 07:05] LABS: ALANINE AMINOTRANSFERASE 38 U/L (12-78); ALBUMIN 3.4 G/DL (3.4-5.0); ALBUMIN/GLOBULIN RATIO 1.1 (1.1-1.5); ALKALINE PHOSPHATASE 60 IU/L (46-116); ANION GAP 5 (8-16); ASPARTATE AMINO TRANSFERASE 55 U/L (10-37); BILIRUBIN,TOTAL 0.5 MG/DL (0.1-1.0); BLOOD UREA NITROGEN 1 MG/DL (7-18); BUN/CREATININE RATIO 2.1 (10.0-20.0); CALCIUM 8.9 MG/DL (8.5-10.1); CHLORIDE 106 MMOL/L (99-107); CREATININE 0.48 MG/DL (0.40-0.90); GLUCOSE 101 MG/DL (70-104); LIPASE 25 U/L (16-77); MAGNESIUM 1.8 MG/DL (1.5-2.4); PHOSPHORUS 3.3 MG/DL (2.3-4.5); SODIUM 139 MMOL/L (135-145); TOTAL PROTEIN 6.6 G/DL (6.4-8.2); eCRCL 119 ML/MIN; eGFR > 90 ML/MIN
[2023-12-21 07:08] LABS: POTASSIUM 4.1 MMOL/L (3.5-5.1)
[2023-12-21] MEDS: nicotine 14mg patch - 24hr TD SCH (07:19)
[2023-12-21 09:50] VITALS: BP 111/70; PULSE 96; RESP 14; TEMP 97.4; O2SAT 100
[2023-12-21] MEDS ORDERED: THIA100T70 PO (13:11)
[2023-12-21] MEDS ORDERED: FOLI0.4T6 PO (13:11)
[2023-12-21] MEDS ORDERED: LORA-269 PO (14:03)
== END 2023-12-21 15:00 | disposition home or self-care (01) | DRG 53 ==
LOC: ER 19:37 → UNDOADMIN 23:11 → ED HOLD 23:11 → ORTHO 4S 12-20 07:30 → ED HOLD 12-20 08:35
PROVIDERS: ADMIT Internal Medicine Critical Care Medicine; ATTEND Family Medicine
DX: R56.9 Unspecified convulsions (principal); E44.0 Moderate protein-calorie malnutrition; D75.89 Other specified diseases of blood and blood-forming organs; E87.6 Hypokalemia; F31.9 Bipolar disorder, unspecified; F10.230 Alcohol dependence with withdrawal, uncomplicated; R73.9 Hyperglycemia, unspecified; K86.1 Other chronic pancreatitis; I10 Essential (primary) hypertension; I25.10 Atherosclerotic heart disease of native coronary artery without angina pectoris; Z87.891 Personal history of nicotine dependence; Z88.5 Allergy status to narcotic agent; Z79.899 Other long term (current) drug therapy; Z68.20 Body mass index [BMI] 20.0-20.9, adult
CPT/HCPCS: 36415; 80053; 80320; 81001; 81025; 82607; 82948; 83690; 83735; 84100; 84132; 85025; 85610; 87081; 97116; 97161; 99291; G0378; J2060; J2560; J3411; J3490; J7030

== ENCOUNTER 2024-03-19 09:50 | Emergency (ER) | payer MEDICAID ==
[~2024-03-19] VITALS: Ht 154.9 cm; Wt 47.7 kg
[~2024-03-19 09:50] MED LIST changes: +THIA100T70 PO
[2024-03-19 09:57] VITALS: BP 128/85; PULSE 71; TEMP 97.5; O2SAT 99
[2024-03-19] MEDS: diphenhydrAMINE 50 mg/ml inj IM ONE (10:45)
[2024-03-19] MEDS: proCHLORperazine 10 MG/2 ml inj IM ONE (10:46)
[2024-03-19] MEDS: LORazepam 1 MG tablet PO ONE (11:45)
[2024-03-19] MEDS ORDERED: CHLO25CA10 PO (11:49)
[2024-03-19] MEDS ORDERED: ONDA-245 PO (11:49)
[2024-03-19 12:00] VITALS: RESP 18
== END 2024-03-19 12:00 | disposition home or self-care (01) ==
LOC: ER 09:50
DX: F10.930 Alcohol use, unspecified with withdrawal, uncomplicated (principal); I25.10 Atherosclerotic heart disease of native coronary artery without angina pectoris; F12.90 Cannabis use, unspecified, uncomplicated; Z88.5 Allergy status to narcotic agent; Z79.899 Other long term (current) drug therapy; Z87.19 Personal history of other diseases of the digestive system
CPT/HCPCS: 96372; 99284; J0780; J1200

== ENCOUNTER 2024-05-14 12:05 | Emergency (ER) | payer MEDICAID ==
[~2024-05-14] VITALS: Ht 160 cm; Wt 45.0 kg
[~2024-05-14 12:05] MED LIST changes: +CHLO25CA10 PO; +ONDA-245 PO
[2024-05-14 13:49] LABS: BASOPHILS # (AUTO) 0.1 X10'3 (0-0.2); BASOPHILS % (AUTO) 0.3 % (0-1); EOSINOPHILS % (AUTO) 0 % (0-6); HEMATOCRIT 39.9 % (35.0-45.0); HEMOGLOBIN 13.7 g/dl (12.0-16.0); LYMPHOCYTES # (AUTO) 0.6 X10'3 (1.1-4.8); LYMPHOCYTES % (AUTO) 4.2 % (21-51); MEAN CORPUSCULAR HEMOGLOBIN 33.7 PG (27.0-31.0); MEAN CORPUSCULAR HGB CONC 34.3 g/dL (33.0-36.5); MEAN CORPUSCULAR VOLUME 98.4 FL (78-98); MONOCYTES # (AUTO) 0.5 X10'3 (0-0.9); MONOCYTES % (AUTO) 3.6 % (2-12); NEUTROPHILS % (AUTO) 91.9 % (42-75); PLATELET COUNT 164 X10'3 (140-440); RED BLOOD COUNT 4.06 X10'6 (4.20-5.60); RED CELL DISTRIBUTION WIDTH 13.5 % (11.5-14.5); WHITE BLOOD COUNT 15.2 X10'3 (4.5-11.0)
[2024-05-14 14:17] LABS: ALANINE AMINOTRANSFERASE 17 U/L (12-78); ALBUMIN 4.4 G/DL (3.4-5.0); ALBUMIN/GLOBULIN RATIO 1.2 (1.1-1.5); ALKALINE PHOSPHATASE 123 IU/L (46-116); ANION GAP 13 (8-16); ASPARTATE AMINO TRANSFERASE 39 U/L (10-37); BILIRUBIN,TOTAL 1.8 MG/DL (0.1-1.0); BLOOD UREA NITROGEN 8 MG/DL (7-18); BUN/CREATININE RATIO 13.6 (10.0-20.0); CALCIUM 9.2 MG/DL (8.5-10.1); CHLORIDE 101 MMOL/L (99-107); CREATININE 0.59 MG/DL (0.40-0.90); GLUCOSE 130 MG/DL (70-104); LIPASE 37 U/L (16-77); POTASSIUM 3.7 MMOL/L (3.5-5.1); SODIUM 140 MMOL/L (135-145); TOTAL CARBON DIOXIDE 25.8 MMOL/L (24-32); TOTAL PROTEIN 8.1 G/DL (6.4-8.2); eCRCL 95 ML/MIN; eGFR > 90 ML/MIN
[2024-05-14 14:38] LABS: URINE HCG NEGATIVE (NEG)
[2024-05-14 14:40] LABS: BILIRUBIN,URINE SMALL (Neg); CLARITY,URINE CLEAR (Clear); COLOR,URINE YELLOW (Yellow); GLUCOSE, URINE NEGATIVE (Neg); KETONES,URINE 40 mg/dl (Neg); LEUKOCYTE ESTERASE ,URINE NEGATIVE (Neg); NITRITES, URINE NEGATIVE (Neg); OCCULT BLOOD,URINE TRACE-INTACT (Neg); PH,URINE 8.5 (4.8-8.0); PROTEIN,URINE 100 mg/dl (Neg)
[2024-05-14 14:50] LABS: UA COLLECTION TYPE NON-SPECIFIED
[2024-05-14 14:51] LABS: BACTERIA,URINE 1+ /HPF (Neg); MUCUS STRANDS MODERATE /LPF (Neg); RBC,URINE NONE SEEN /HPF (0-2); SQUAMOUS EPITHELIAL CELL,UR MANY /LPF (FEW); WBC,URINE 0-4 /HPF (0-4)
[2024-05-14] MEDS: chlordiazePOXIDE 25mg capsule PO ONE ×2 (15:42→17:24)
[2024-05-14] MEDS: normal saline 500ml IV soln 500 ML IV ONE (15:43)
[2024-05-14] MEDS: LORazepam 2 mg/ml vial IV ONE (16:05)
[2024-05-14] MEDS ORDERED: CHLO25CA10 PO (17:16)
[2024-05-14] MEDS: thiamine 100mg tablet PO ONE (17:24)
[2024-05-14] MEDS: folic acid 1mg tablet PO ONE (17:24)
[2024-05-14 18:24] VITALS: BP 125/89; PULSE 97; RESP 23; TEMP 98.5; O2SAT 98
== END 2024-05-14 18:37 | disposition home or self-care (01) ==
LOC: ER 12:06
DX: A08.11 Acute gastroenteropathy due to Norwalk agent (principal); I25.10 Atherosclerotic heart disease of native coronary artery without angina pectoris; F12.90 Cannabis use, unspecified, uncomplicated; F17.210 Nicotine dependence, cigarettes, uncomplicated; F10.930 Alcohol use, unspecified with withdrawal, uncomplicated; Z88.5 Allergy status to narcotic agent; Z20.822 Contact with and (suspected) exposure to COVID-19; Y90.9 Presence of alcohol in blood, level not specified
CPT/HCPCS: 36415; 80053; 81001; 81025; 83690; 85025; 87502; 87503; 87811; 96374; 99285; J2060; J7040; 96361

== ENCOUNTER 2024-07-04 05:04 | Inpatient (IN) | payer MEDICAID ==
[~2024-07-04] VITALS: Ht 152.4 cm; Wt 46.5 kg
[2024-07-04] MEDS: normal saline 1000ml 1,000 ML IV ONE (05:43)
[2024-07-04 06:18] LABS: BASOPHILS # (AUTO) 0.4 X10'3 (0-0.2); BASOPHILS % (AUTO) 1.1 % (0-1); EOSINOPHILS % (AUTO) 0 % (0-6); HEMATOCRIT 44.2 % (35.0-45.0); HEMOGLOBIN 14.5 g/dl (12.0-16.0); LYMPHOCYTES # (AUTO) 0.7 X10'3 (1.1-4.8); LYMPHOCYTES % (AUTO) 2.3 % (21-51); MEAN CORPUSCULAR HEMOGLOBIN 33.4 PG (27.0-31.0); MEAN CORPUSCULAR HGB CONC 32.9 g/dL (33.0-36.5); MEAN CORPUSCULAR VOLUME 101.7 FL (78-98); MEAN PLATELET VOLUME 8.5 FL (7.4-10.4); MONOCYTES # (AUTO) 0.7 X10'3 (0-0.9); MONOCYTES % (AUTO) 2.2 % (2-12); NEUTROPHILS # (AUTO) 29.8 X10'3 (1.8-7.7); NEUTROPHILS % (AUTO) 94.4 % (42-75); PLATELET COUNT 275 X10'3 (140-440); RED BLOOD COUNT 4.35 X10'6 (4.20-5.60); RED CELL DISTRIBUTION WIDTH 13.8 % (11.5-14.5)
[2024-07-04] MEDS: ondansetron/PF 4mg/2ml inj IV ONE (06:20)
[2024-07-04 06:21] LABS: WHITE BLOOD COUNT 31.5 X10'3 (4.5-11.0)
[2024-07-04 06:35] LABS: ALANINE AMINOTRANSFERASE 24 U/L (12-78); ALBUMIN 4.6 G/DL (3.4-5.0); ALBUMIN/GLOBULIN RATIO 1.2 (1.1-1.5); ALKALINE PHOSPHATASE 106 IU/L (46-116); ANION GAP 32 (8-16); ASPARTATE AMINO TRANSFERASE 35 U/L (10-37); BLOOD UREA NITROGEN 12 MG/DL (7-18); CALCIUM 8.8 MG/DL (8.5-10.1); CHLORIDE 94 MMOL/L (99-107); CREATININE 0.92 MG/DL (0.40-0.90); GLUCOSE 322 MG/DL (70-104); LIPASE 32 U/L (16-77); SODIUM 136 MMOL/L (135-145); TOTAL PROTEIN 8.6 G/DL (6.4-8.2); eCRCL 62 ML/MIN; eGFR 70 ML/MIN
[2024-07-04 06:36] LABS: POTASSIUM 4.8 MMOL/L (3.5-5.1)
[2024-07-04 06:40] LABS: ETHANOL < 10 MG/DL (<10)
[2024-07-04 06:41] LABS: TOTAL CARBON DIOXIDE 9.6 MMOL/L (24-32)
[2024-07-04] MEDS ORDERED: Insulin Reg/NS 100units/100mL 100 ML IV SCH (06:50)
[2024-07-04] MEDS ORDERED: potassium Cl 40MEQ/270ML bag 270 ML IV PRN (06:50)
[2024-07-04] MEDS ORDERED: sodium phosphate inj. 15 MMOL in dextrose 5%-water 250 ML IV PRN (06:50)
[2024-07-04] MEDS ORDERED: potassium Cl 40MEQ/1/2NS 520ml 520 ML IV PRN (06:50)
[2024-07-04] MEDS: ringers solution, lacted 1,000 ML IV SCH ×2 (06:50→07:43)
[2024-07-04] MEDS ORDERED: magnesium sulf-water 2g/50mL 50 ML IV PRN ×2 (06:50→09:15)
[2024-07-04] MEDS: sodium phosphate inj. 30 MMOL in normal saline 250ml IV soln 250 ML IV ONE (06:50)
[2024-07-04] MEDS ORDERED: dextrose 50%-water 50ml dispensing syringe IV PRN ×3 (06:50→12:30)
[2024-07-04 07:08] LABS: PLATELET ESTIMATE NORMAL; TOTAL CELLS COUNTED 100
[2024-07-04 07:15] LABS: MAGNESIUM 1.9 MG/DL (1.5-2.4)
[2024-07-04] MEDS: dextrose 5%-1/2 normal saline 1,000 ML IV ONE (07:43)
[2024-07-04] MEDS: insulin regular, human 10 units/0.1 ml syringe IV ONE (07:45)
[2024-07-04] MEDS: LORazepam 2 mg/ml vial IV ONE (08:32)
[2024-07-04] MEDS ORDERED: potassium Cl 20 mEq SR tablet PO PRN ×2 (09:15)
[2024-07-04] MEDS ORDERED: ondansetron/PF 4mg/2ml inj IV PRN (09:15)
[2024-07-04] MEDS ORDERED: magnesium sulf-water 4G/100mL 100 ML IV PRN (09:15)
[2024-07-04] MEDS ORDERED: acetaminophen 325mg tablet PO PRN (09:15)
[2024-07-04] MEDS ORDERED: HYDROcodone/acetaminophen 5mg/325mg tablet PO PRN (09:15)
[2024-07-04] MEDS ORDERED: morphine 2 MG/ML inj. syringe IV PRN (09:15)
[2024-07-04] MEDS ORDERED: magnesium Cl slow-release 64mg tablet PO PRN (09:15)
[2024-07-04] MEDS ORDERED: haloperidol lactate 5mg/ml inj IM PRN (09:20)
[2024-07-04] MEDS: atenolol 50mg tablet PO SCH (09:20)
[2024-07-04] MEDS: sodium bicarbonate (8.4%) inj. 50 MEQ in dextrose 5%-water 1,000 ML IV SCH (09:20)
[2024-07-04] MEDS ORDERED: haloperidol 5mg tablet PO PRN (09:20)
[2024-07-04 10:26] LABS: URINE HCG NEGATIVE (NEG)
[2024-07-04 10:27] LABS: BILIRUBIN,URINE NEGATIVE (Neg); CLARITY,URINE CLEAR (Clear); COLOR,URINE YELLOW (Yellow); GLUCOSE, URINE NEGATIVE (Neg); KETONES,URINE >=80 mg/dl (Neg); LEUKOCYTE ESTERASE ,URINE NEGATIVE (Neg); NITRITES, URINE NEGATIVE (Neg); OCCULT BLOOD,URINE NEGATIVE (Neg); PROTEIN,URINE TRACE mg/dl (Neg); UROBILINOGEN,URINE 0.2 E.U/dL (0.2-1.0)
[2024-07-04 10:33] LABS: UA COLLECTION TYPE STRAIGHT CATH
[2024-07-04 10:34] LABS: BACTERIA,URINE NONE SEEN /HPF (Neg); MUCUS STRANDS FEW /LPF (Neg); RBC,URINE 0-2 /HPF (0-2); SQUAMOUS EPITHELIAL CELL,UR NONE SEEN /LPF (FEW); WBC,URINE 0-4 /HPF (0-4)
[2024-07-04 10:38] LABS: URINE AMPHETAMINE SCREEN NEGATIVE (Neg); URINE BARBITUATE SCREEN NEGATIVE (Neg); URINE BENZODIAZEPINES SCREEN NEGATIVE (Neg); URINE CANNABINOID SCREEN POSITIVE (Neg); URINE COCAINE SCREEN NEGATIVE (Neg); URINE METHADONE SCREEN NEGATIVE (Neg); URINE OPIATE SCREEN NEGATIVE (Neg); URINE PHENCYCLIDINE SCREEN NEGATIVE (Neg)
[2024-07-04] MEDS ORDERED: DEXTROSE 15 GM of carb/4 tabs (each vial/BOTTLE has 4 tablets) PO PRN ×2 (12:30)
[2024-07-04] MEDS ORDERED: glucagon, human recombinant 1mg kit SUBCUT PRN (12:30)
[2024-07-04] MEDS: thiamine 100mg/ml 2ml inj. IV SCH (13:23)
[2024-07-04 13:36] LABS: BASOPHILS # (AUTO) 0.1 X10'3 (0-0.2); BASOPHILS % (AUTO) 0.3 % (0-1); EOSINOPHILS % (AUTO) 0 % (0-6); HEMATOCRIT 37.5 % (35.0-45.0); HEMOGLOBIN 12.4 g/dl (12.0-16.0); LYMPHOCYTES # (AUTO) 1.3 X10'3 (1.1-4.8); LYMPHOCYTES % (AUTO) 5.3 % (21-51); MEAN CORPUSCULAR HEMOGLOBIN 33.4 PG (27.0-31.0); MEAN CORPUSCULAR HGB CONC 33.2 g/dL (33.0-36.5); MEAN CORPUSCULAR VOLUME 100.5 FL (78-98); MEAN PLATELET VOLUME 8.5 FL (7.4-10.4); MONOCYTES # (AUTO) 1.5 X10'3 (0-0.9); MONOCYTES % (AUTO) 6.5 % (2-12); NEUTROPHILS # (AUTO) 20.7 X10'3 (1.8-7.7); NEUTROPHILS % (AUTO) 87.9 % (42-75); PLATELET COUNT 207 X10'3 (140-440); RED BLOOD COUNT 3.73 X10'6 (4.20-5.60); RED CELL DISTRIBUTION WIDTH 13.4 % (11.5-14.5); WHITE BLOOD COUNT 23.6 X10'3 (4.5-11.0)
[2024-07-04 13:45] LABS: ALANINE AMINOTRANSFERASE 19 U/L (12-78); ALBUMIN 3.4 G/DL (3.4-5.0); ALKALINE PHOSPHATASE 81 IU/L (46-116); ANION GAP 14 (8-16); ASPARTATE AMINO TRANSFERASE 30 U/L (10-37); BILIRUBIN,TOTAL 0.9 MG/DL (0.1-1.0); BLOOD UREA NITROGEN 6 MG/DL (7-18); BUN/CREATININE RATIO 7.6 (10.0-20.0); CALCIUM 8.2 MG/DL (8.5-10.1); CHLORIDE 104 MMOL/L (99-107); CREATININE 0.79 MG/DL (0.40-0.90); GLUCOSE 257 MG/DL (70-104); POTASSIUM 4.4 MMOL/L (3.5-5.1); SODIUM 137 MMOL/L (135-145); TOTAL PROTEIN 6.7 G/DL (6.4-8.2); eCRCL 72 ML/MIN; eGFR 83 ML/MIN
[2024-07-04] MEDS: INSULIN LISPRO 100 UNIT/ML INSULN.PEN MULTI-DOSE SQ SCH (17:24)
[2024-07-04] MEDS: heparin, porcine 5000 units/ml vial SQ SCH (20:20)
[2024-07-04] MEDS: dextrose 5%-1/4 normal saline 1,000 ML IV SCH (22:28)
[2024-07-04 23:50] VITALS: BP 153/86; PULSE 66; RESP 21; TEMP 98; O2SAT 100
[2024-07-05] VITALS (7 sets, daily range): BP systolic 142–163; BP diastolic 79–95; PULSE 63–83; RESP 14–22; TEMP 97.8–99.1; O2SAT 99–100
[2024-07-05] MEDS: pantoprazole 40 MG vial IV ONE ×2 (00:25→11:03)
[2024-07-05] MEDS: mag hydrox/Alum hydrox/simeth 30ml oral suspension PO ONE (00:44)
[2024-07-05 06:54] LABS: BASOPHILS # (AUTO) 0.1 X10'3 (0-0.2); BASOPHILS % (AUTO) 0.6 % (0-1); EOSINOPHILS % (AUTO) 0 % (0-6); HEMATOCRIT 36.3 % (35.0-45.0); HEMOGLOBIN 12.1 g/dl (12.0-16.0); LYMPHOCYTES # (AUTO) 2.2 X10'3 (1.1-4.8); MEAN CORPUSCULAR HEMOGLOBIN 33.9 PG (27.0-31.0); MEAN CORPUSCULAR HGB CONC 33.5 g/dL (33.0-36.5); MEAN CORPUSCULAR VOLUME 101.2 FL (78-98); MEAN PLATELET VOLUME 8.9 FL (7.4-10.4); MONOCYTES # (AUTO) 0.6 X10'3 (0-0.9); MONOCYTES % (AUTO) 2.7 % (2-12); NEUTROPHILS # (AUTO) 17.5 X10'3 (1.8-7.7); NEUTROPHILS % (AUTO) 85.7 % (42-75); PLATELET COUNT 156 X10'3 (140-440); RED BLOOD COUNT 3.58 X10'6 (4.20-5.60); RED CELL DISTRIBUTION WIDTH 13.4 % (11.5-14.5); WHITE BLOOD COUNT 20.4 X10'3 (4.5-11.0)
[2024-07-05] MEDS: multivitamins, therapeutics tablet PO SCH (08:31)
[2024-07-05] MEDS: LORazepam 2 mg/ml vial IV PRN (08:57)
[2024-07-05 09:34] LABS: ALANINE AMINOTRANSFERASE 17 U/L (12-78); ALBUMIN 3.2 G/DL (3.4-5.0); ALKALINE PHOSPHATASE 73 IU/L (46-116); ANION GAP 6 (8-16); BILIRUBIN,TOTAL 1.1 MG/DL (0.1-1.0); BLOOD UREA NITROGEN 3 MG/DL (7-18); BUN/CREATININE RATIO 7.5 (10.0-20.0); CALCIUM 8.8 MG/DL (8.5-10.1); CHLORIDE 104 MMOL/L (99-107); GLUCOSE 168 MG/DL (70-104); LIPASE 45 U/L (16-77); MAGNESIUM 2.1 MG/DL (1.5-2.4); SODIUM 140 MMOL/L (135-145); TOTAL CARBON DIOXIDE 29.9 MMOL/L (24-32); TOTAL PROTEIN 6.4 G/DL (6.4-8.2); eCRCL 142 ML/MIN; eGFR > 90 ML/MIN
[2024-07-05 09:36] LABS: ASPARTATE AMINO TRANSFERASE 30 U/L (10-37); POTASSIUM 3.5 MMOL/L (3.5-5.1)
[2024-07-05] MEDS: folic acid 1mg/0.2ml inj IV SCH (11:03)
[2024-07-05] MEDS: Neutra Phos packet PO PRN (14:32)
[2024-07-05] MEDS: pantoprazole 40 MG vial IV SCH (19:09)
[2024-07-05] MEDS: acetaminophen 325mg tablet PO PRN (19:14)
[2024-07-06] VITALS (8 sets, daily range): BP systolic 111–158; BP diastolic 65–96; PULSE 63–84; RESP 8–18; TEMP 97.2–99; O2SAT 97–100
[2024-07-06 07:11] LABS: BASOPHILS # (AUTO) 0.1 X10'3 (0-0.2); LYMPHOCYTES # (AUTO) 2.8 X10'3 (1.1-4.8); MONOCYTES # (AUTO) 0.4 X10'3 (0-0.9)
[2024-07-06 07:13] LABS: BASOPHILS % (AUTO) 1.1 % (0-1); EOSINOPHILS % (AUTO) 0.3 % (0-6); HEMATOCRIT 38.8 % (35.0-45.0); HEMOGLOBIN 12.8 g/dl (12.0-16.0); LYMPHOCYTES % (AUTO) 25.5 % (21-51); MEAN CORPUSCULAR HEMOGLOBIN 33.2 PG (27.0-31.0); MEAN CORPUSCULAR HGB CONC 32.9 g/dL (33.0-36.5); MEAN PLATELET VOLUME 9.8 FL (7.4-10.4); MONOCYTES % (AUTO) 3.3 % (2-12); NEUTROPHILS # (AUTO) 7.8 X10'3 (1.8-7.7); NEUTROPHILS % (AUTO) 69.8 % (42-75); PLATELET COUNT 147 X10'3 (140-440); RED BLOOD COUNT 3.84 X10'6 (4.20-5.60); RED CELL DISTRIBUTION WIDTH 13.2 % (11.5-14.5); WHITE BLOOD COUNT 11.2 X10'3 (4.5-11.0)
[2024-07-06 07:30] LABS: ALANINE AMINOTRANSFERASE 18 U/L (12-78); ALBUMIN 3.1 G/DL (3.4-5.0); ALBUMIN/GLOBULIN RATIO 0.9 (1.1-1.5); ALKALINE PHOSPHATASE 72 IU/L (46-116); ANION GAP 7 (8-16); ASPARTATE AMINO TRANSFERASE 24 U/L (10-37); BILIRUBIN,TOTAL 0.5 MG/DL (0.1-1.0); BLOOD UREA NITROGEN 1 MG/DL (7-18); BUN/CREATININE RATIO 2.1 (10.0-20.0); CALCIUM 8.6 MG/DL (8.5-10.1); CHLORIDE 105 MMOL/L (99-107); CREATININE 0.47 MG/DL (0.40-0.90); GLUCOSE 109 MG/DL (70-104); MAGNESIUM 1.6 MG/DL (1.5-2.4); PHOSPHORUS 1.6 MG/DL (2.3-4.5); SODIUM 143 MMOL/L (135-145); TOTAL CARBON DIOXIDE 31.1 MMOL/L (24-32); TOTAL PROTEIN 6.4 G/DL (6.4-8.2); eCRCL 121 ML/MIN; eGFR > 90 ML/MIN
[2024-07-06 07:38] LABS: POTASSIUM 2.8 MMOL/L (3.5-5.1)
[2024-07-06] MEDS: LORazepam 1 MG tablet PO PRN (08:48)
[2024-07-06] MEDS: losartan 25mg tablet PO SCH (08:48)
[2024-07-06] MEDS: potassium Cl 20 mEq SR tablet PO STA (08:49)
[2024-07-06] MEDS: amLODIPine 5mg tablet PO SCH (08:50)
[2024-07-06] MEDS: magnesium sulf-water 2g/50mL 50 ML IV ONE (08:50)
[2024-07-06] MEDS: Neutra Phos packet PO SCH (13:01)
[2024-07-06] MEDS: potassium Cl 40MEQ/1/2NS 520ml 520 ML IV PRN (14:19)
[2024-07-06] MEDS ORDERED: hydrALAZINE 20mg/ml inj. IV PRN (18:20)
[2024-07-06 18:26] LABS: MAGNESIUM 2.1 MG/DL (1.5-2.4); POTASSIUM 3.8 MMOL/L (3.5-5.1)
[2024-07-07 02:00] VITALS: BP 140/82; PULSE 75; RESP 17; TEMP 98.9; O2SAT 100
[2024-07-07 07:00] VITALS: BP 148/84; PULSE 67; RESP 21; TEMP 98.1; O2SAT 98
[2024-07-07 07:40] LABS: BASOPHILS # (AUTO) 0.1 X10'3 (0-0.2); BASOPHILS % (AUTO) 0.8 % (0-1); EOSINOPHILS # (AUTO) 0.1 X10'3 (0-0.9); EOSINOPHILS % (AUTO) 0.8 % (0-6); HEMATOCRIT 37.2 % (35.0-45.0); HEMOGLOBIN 12.5 g/dl (12.0-16.0); LYMPHOCYTES # (AUTO) 1.9 X10'3 (1.1-4.8); LYMPHOCYTES % (AUTO) 21.1 % (21-51); MEAN CORPUSCULAR HEMOGLOBIN 33.8 PG (27.0-31.0); MEAN CORPUSCULAR HGB CONC 33.7 g/dL (33.0-36.5); MEAN CORPUSCULAR VOLUME 100.3 FL (78-98); MEAN PLATELET VOLUME 10.8 FL (7.4-10.4); MONOCYTES # (AUTO) 0.4 X10'3 (0-0.9); MONOCYTES % (AUTO) 3.9 % (2-12); NEUTROPHILS # (AUTO) 6.5 X10'3 (1.8-7.7); NEUTROPHILS % (AUTO) 73.4 % (42-75); PLATELET COUNT 126 X10'3 (140-440); RED BLOOD COUNT 3.71 X10'6 (4.20-5.60); RED CELL DISTRIBUTION WIDTH 13.3 % (11.5-14.5); WHITE BLOOD COUNT 8.9 X10'3 (4.5-11.0)
[2024-07-07 08:29] LABS: ALANINE AMINOTRANSFERASE 27 U/L (12-78); ALBUMIN 3.5 G/DL (3.4-5.0); ALBUMIN/GLOBULIN RATIO 0.9 (1.1-1.5); ALKALINE PHOSPHATASE 82 IU/L (46-116); ANION GAP 10 (8-16); ASPARTATE AMINO TRANSFERASE 41 U/L (10-37); BILIRUBIN,TOTAL 0.7 MG/DL (0.1-1.0); BLOOD UREA NITROGEN 2 MG/DL (7-18); BUN/CREATININE RATIO 4.1 (10.0-20.0); CALCIUM 9.1 MG/DL (8.5-10.1); CHLORIDE 105 MMOL/L (99-107); CREATININE 0.49 MG/DL (0.40-0.90); GLUCOSE 100 MG/DL (70-104); POTASSIUM 3.5 MMOL/L (3.5-5.1); SODIUM 142 MMOL/L (135-145); TOTAL CARBON DIOXIDE 27.2 MMOL/L (24-32); TOTAL PROTEIN 7.2 G/DL (6.4-8.2); eCRCL 116 ML/MIN; eGFR > 90 ML/MIN
[2024-07-07 09:35] LABS: BASOPHILS # (AUTO) 0.1 X10'3 (0-0.2); BASOPHILS % (AUTO) 1.1 % (0-1); EOSINOPHILS # (AUTO) 0.1 X10'3 (0-0.9); EOSINOPHILS % (AUTO) 0.6 % (0-6); HEMATOCRIT 37.8 % (35.0-45.0); HEMOGLOBIN 12.6 g/dl (12.0-16.0); LYMPHOCYTES # (AUTO) 1.7 X10'3 (1.1-4.8); MEAN CORPUSCULAR HEMOGLOBIN 33.8 PG (27.0-31.0); MEAN CORPUSCULAR HGB CONC 33.3 g/dL (33.0-36.5); MEAN CORPUSCULAR VOLUME 101.3 FL (78-98); MEAN PLATELET VOLUME 10.1 FL (7.4-10.4); MONOCYTES # (AUTO) 0.3 X10'3 (0-0.9); MONOCYTES % (AUTO) 3.3 % (2-12); NEUTROPHILS # (AUTO) 6.8 X10'3 (1.8-7.7); PLATELET COUNT 130 X10'3 (140-440); RED BLOOD COUNT 3.73 X10'6 (4.20-5.60); RED CELL DISTRIBUTION WIDTH 13.1 % (11.5-14.5); WHITE BLOOD COUNT 8.9 X10'3 (4.5-11.0)
[2024-07-07] MEDS ORDERED: FOLI1TAB27 PO (09:58)
[2024-07-07] MEDS ORDERED: LOSA25TA41 PO (09:58)
[2024-07-07] MEDS ORDERED: NOR5T PO (09:58)
[2024-07-07 10:13] LABS: ALANINE AMINOTRANSFERASE 28 U/L (12-78); ALBUMIN 3.5 G/DL (3.4-5.0); ALBUMIN/GLOBULIN RATIO 0.9 (1.1-1.5); ALKALINE PHOSPHATASE 85 IU/L (46-116); ANION GAP 11 (8-16); ASPARTATE AMINO TRANSFERASE 43 U/L (10-37); BILIRUBIN,TOTAL 0.7 MG/DL (0.1-1.0); BLOOD UREA NITROGEN 2 MG/DL (7-18); BUN/CREATININE RATIO 3.3 (10.0-20.0); CALCIUM 8.9 MG/DL (8.5-10.1); CHLORIDE 104 MMOL/L (99-107); CREATININE 0.61 MG/DL (0.40-0.90); GLUCOSE 150 MG/DL (70-104); POTASSIUM 3.7 MMOL/L (3.5-5.1); SODIUM 140 MMOL/L (135-145); TOTAL CARBON DIOXIDE 25.1 MMOL/L (24-32); TOTAL PROTEIN 7.2 G/DL (6.4-8.2); eCRCL 93 ML/MIN; eGFR > 90 ML/MIN
[2024-07-07 10:15] LABS: PLATELET ESTIMATE DECREASED
[2024-07-07 10:16] LABS: STOMATOCYTES FEW
[2024-07-07 10:22] LABS: LARGE PLATELETS FEW
[2024-07-07 11:00] VITALS: BP 146/84; PULSE 95; RESP 22; TEMP 98.6; O2SAT 100
[2024-07-07 13:35] VITALS: O2SAT 100
[2024-07-08] MEDS ORDERED: thiamine 100mg tablet PO SCH (08:00)
[2024-07-09] MEDS ORDERED: folic acid 1mg tablet PO SCH (08:00)
== END 2024-07-07 13:35 | disposition home or self-care (01) | DRG 469 ==
LOC: ER 05:04 → ED HOLD 09:18 → PCU 3S 23:01
PROVIDERS: ADMIT Internal Medicine; ATTEND Internal Medicine
DX: N17.9 Acute kidney failure, unspecified (principal); E83.39 Other disorders of phosphorus metabolism; E87.29 Other acidosis; R73.9 Hyperglycemia, unspecified; E86.0 Dehydration; E87.6 Hypokalemia; F31.9 Bipolar disorder, unspecified; I10 Essential (primary) hypertension; F10.239 Alcohol dependence with withdrawal, unspecified; F41.9 Anxiety disorder, unspecified; D72.829 Elevated white blood cell count, unspecified; I25.10 Atherosclerotic heart disease of native coronary artery without angina pectoris; Z82.49 Family history of ischemic heart disease and other diseases of the circulatory system; Z88.5 Allergy status to narcotic agent; Z79.899 Other long term (current) drug therapy
CPT/HCPCS: 36415; 71045; 80053; 80305; 80320; 81001; 81025; 82948; 83036; 83605; 83690; 83735; 83970; 84100; 84132; 84145; 85007; 85008; 85025; 87040; 87081; 93005; 96361; 96374; 96375; 97110; 97116; 97162; 99285; A4314; G0378; J1644; J1815; J2060; J2405; J2470; J3411; J3480; J3490; J7030; J7042; J7070; J7120

== ENCOUNTER 2024-08-28 07:18 | Inpatient (IN) | payer MEDICAID ==
[~2024-08-28] VITALS: Ht 162.6 cm; Wt 43.5 kg
[~2024-08-28 07:18] MED LIST changes: -CHLO25CA10 PO; +FOLI1TAB27 PO; -LORA-269 PO; +LOSA25TA41 PO; +NOR5T PO
--- NOTE | 2024-08-28 07:35 | ELECTROCARDIOGRAPH REPORT ---
[facility] Test Date: 2024-08-28 Test Time: 07:22:44 Pat Name: KATLYN VAZQUEZ Department: EMERGENCY ROOM Room: [place] [address] Gender: F Manager Administrative: : 1990 Requested By: JOSELITO MANCINI Order Number: [id number] Reading MD: Dr. Armando Frey Measurements Intervals [place] Rate: 79 P: 0 CO: 0 QRS: 80 QRSD: 81 T: 65 QT: 396 QTc: 455 Interpretive Statements Accelerated junctional rhythm Baseline wander in lead(s) V1 Electronically Signed On 08-28-2024 22:15:[address] Armando Frey Please click the below link to view image of tracing.
[2024-08-28] MEDS: normal saline 1000ml 1,000 ML IV SCH ×2 (07:42→08:52)
[2024-08-28] MEDS: ondansetron/PF 4mg/2ml inj IV ONE (07:44)
[2024-08-28] MEDS ORDERED: LORazepam 1 MG tablet PO ONE (07:45)
[2024-08-28] MEDS: LORazepam 2 mg/ml vial IV ONE (07:51)
--- NOTE | 2024-08-28 08:02 | Physician Documentation ---
History of Present Illness ~ Chief Complaint: Weakness Stated Complaint: ETOH Time Seen by MD: 07:35 OK to notify your PCP?: Yes Primary Medical Doctor: Dmitry Mode of Arrival: EMS HPI 33-year-old female patient was brought to the emergency room by ambulance ( called 911) for being weak and sick. She has been bingeing alcohol (vodka) and according to the patient the last time she consume is two days ago however she smell alcohol. Patient denies having diabetes or other medical problems and no abdominal surgeries. She has nausea vomiting but no diarrhea. She said she has been eating and drinking as usual. Denies drug usage but she does smoke half a pack a day. She has drink even with naltrexone which has been prescribed to her for alcohol dependency. Denies any drug allergies. Medication Reconciliation Allergies: Coded Allergies: No Known Drug Allergies (Verified Allergy, Unknown, 08/28/24) codeine (Unverified Adverse Reaction, Intermediate, N/V, 08/28/24) Scheduled Amlodipine Besylate (Amlodipine Besylate), 5 MG PO DAILY Folic Acid* (Folic Acid*), 1 MG PO DAILY Losartan Potassium (Losartan Potassium), 50 MG PO DAILY Multivitamin with Folic Acid (Thera Tablet), 1 EACH PO Q24H Naltrexone Hcl (Naltrexone Hcl), 1 TAB PO DAILY Pantoprazole Sodium (Pantoprazole Sodium), 40 MG PO DAILY Thiamine HCl (Vitamin B-1), 2 TAB PO DAILY Thiamine Mononitrate (Vitamin B-1), 1 TAB PO DAILY Scheduled PRN Ondansetron 8mg ODT (Ondansetron Odt), 1 TAB PO TID PRN for nausea/vomiting Past Medical History Past Medical History: Gastritis, Pancreatitis Past Surgical History: no surgical history Patient History: (CAD) Coronary arteriosclerosis FATHER, Onset:Unknown FH: bipolar disorder MOTHER, Onset:Unknown FH: cancer MOTHER, Onset:Unknown FH: hypertension FATHER, Onset:Unknown Alcohol Use: Heavy Drug Use: marijuana Lives with: Family Lives In: Home Review of Systems ROS As stated above in the HPI, otherwise all systems are reviewed and negative. Physical Exam Vital Signs: Temperature: 98.0, Source: Oral, Heart Rate: 71, Respiratory Rate: 20, BP: 136/94, Pulse Oximetry: 100, Weight: 43.500 Oxygen Flow Rate: 0 Physical Exam Reviewed vital signs and they are well within normal range the patient is afebrile. Const: Adult female diaphoretic and tremulous Head: Atraumatic Eyes: Normal Conjunctiva ENT: Normal External Ears, Nose and Mouth. Moist mucous membranes Neck: Full range of motion. No meningismus Resp: Clear to auscultation bilaterally. Normal work of breathing Cardio: Regular rate and rhythm, no murmurs. Skin well perfused Abd: Soft, non-tender, non-distended. Normal bowel sounds. No rebound or guarding Skin: No petechiae or rashes. Warm and dry Back: No midline or flank tenderness Ext: No cyanosis, or edema Neuro: Awake and alert Psych: Normal Mood and Affect Procedures Additional Procedures Additional Procedure Note EKG interpretation by ED MD: Done at 07:22 hours shows sinus rhythm at a rate of 79. Normal axis and normal intervals and no ischemic changes. Progress Results/Orders Results/Orders Orders - JOSELITO MANCINI MD Urinalysis, Cult If Indicated (08/28/24 07:32) Hcg, Ur Ql (08/28/24 07:32) Ondansetron Inj. (Zofran 4mg/2ml Vial) (08/28/24 07:35) Page Hospitalist (08/28/24 08:35) Completed Orders - JOSELITO MANCINI MD Cbc/Diff (08/28/24 07:32) BMP (08/28/24 07:32) Lipase (08/28/24 07:32) CMP (08/28/24 07:32) MG (08/28/24 07:33) Stat Ekg (08/28/24 ) Lorazepam Inj (Ativan Inj) (08/28/24 07:35) Ethanol (08/28/24 07:36) Normal Saline 1000ml (Sodium Chloride 10 (08/28/24 07:40) Diazepam Inj (Valium Inj) (08/28/24 08:30) Vital Signs 08/28/24 08/28/24 08/28/24 07:24 07:58 08:24 Temp 98.0 98.0 Pulse 71 79 Resp 20 18 19 B/P (MAP) 136/94 111/90 (97) Pulse Ox 100 99 O2 Flow Rate 0 0 Laboratory Tests Test 08/28/24 07:33 08/28/24 07:52 Glucometer 141 H White Blood Count 10.2 Red Blood Count 4.57 Hemoglobin 15.3 Hematocrit 46.5 H Mean Corpuscular Volume 101.7 H Mean Corpuscular Hemoglobin 33.6 H Mean Corpuscular Hemoglobin Concent 33.0 Red Cell Distribution Width 15.8 H Platelet Count 245 Mean Platelet Volume 9.3 Neutrophils (%) (Auto) 82.4 H Lymphocytes (%) (Auto) 14.3 L Monocytes (%) (Auto) 2.0 Eosinophils (%) (Auto) 0.6 Basophils (%) (Auto) 0.7 Neutrophils # (Auto) 8.4 H Lymphocytes # (Auto) 1.5 Monocytes # (Auto) 0.2 Eosinophils # (Auto) 0.1 Basophils # (Auto) 0.1 CBC Comment Sodium Level 142 Potassium Level 4.7 Chloride Level 104 Carbon Dioxide Level 18.2 L Anion Gap 20 H Blood Urea Nitrogen 7 Creatinine 0.77 Estimated GFR/1.73 m2 86 BUN/Creatinine Ratio 9.1 L Glucose Level 148 H Calcium Level 9.3 Magnesium Level 2.0 Total Bilirubin 0.9 Aspartate Amino Transf (AST/SGOT) 49 H Alanine Aminotransferase (ALT/SGPT) 18 Alkaline Phosphatase 124 H Total Protein 8.5 H Albumin 4.6 Globulin 3.9 Albumin/Globulin Ratio 1.2 Lipase 19 Chemistry Comments Ethyl Alcohol Level 29 H Medical Decision Making Findings During the physical examination, the findings suggestive of acute life- threatening condition such as JVD, tracheal deviation, acidotic breathing, noisy stridorous breath sounds, pulses paradoxus, muffled heart sounds, unequal breath sounds, abdominal rigidity and rebound tenderness, focal neurological deficits, cool clammy skin, severe hypotension, severe tachycardia or bradycardia are absent. Patient has a long history of alcohol use disorder and numerous visits to [facility] emergency room. The last time was June 2024 and she was admitted for alcohol withdrawal. This time also I think she has been drinking alcohol quite sometimes. Patient is tremulous and clinically dehydrated. CBC showed WBC 10.2 H and H15.3 and 46.5 platelets 245. No bandemia. Sodium 142 potassium 4.7 chloride 104 bicarb 18.2 BUN seven creatinine 0.77 glucose 148 lipase 19 AST 49 and ETOH 29. I think she needs to be admitted with the diagnosis of alcohol withdrawal hour and metabolic acidosis which could probably from alcoholic pathology. DISCLAIMER Inadvertent spelling and grammatical errors,inadvertent general office associate errors,syntax errors, grammatical errors, and spelling errors are likely due to EMR/dictation software use and do not reflect on the overall quality of patient care. Note that the electronic time recorded on this note does not necessarily reflect the actual time of the patient encounter. Departure Disposition: 09 ADMITTED INPATIENT Impression: Primary Impression: Alcohol withdrawal syndrome Additional Impressions: Metabolic acidosis Alcoholism Referrals: NO PRIMARY CARE PROVIDER (PCP) Signature Scribe Signature: x Attestation: JOSELITO Cameron MD August 28, 2024 08:02
[2024-08-28 08:10] LABS: BASOPHILS # (AUTO) 0.1 X10'3 (0-0.2); BASOPHILS % (AUTO) 0.7 % (0-1); EOSINOPHILS # (AUTO) 0.1 X10'3 (0-0.9); EOSINOPHILS % (AUTO) 0.6 % (0-6); HEMATOCRIT 46.5 % (35.0-45.0); HEMOGLOBIN 15.3 g/dl (12.0-16.0); LYMPHOCYTES # (AUTO) 1.5 X10'3 (1.1-4.8); LYMPHOCYTES % (AUTO) 14.3 % (21-51); MEAN CORPUSCULAR HEMOGLOBIN 33.6 PG (27.0-31.0); MEAN CORPUSCULAR VOLUME 101.7 FL (78-98); MEAN PLATELET VOLUME 9.3 FL (7.4-10.4); MONOCYTES # (AUTO) 0.2 X10'3 (0-0.9); NEUTROPHILS # (AUTO) 8.4 X10'3 (1.8-7.7); NEUTROPHILS % (AUTO) 82.4 % (42-75); PLATELET COUNT 245 X10'3 (140-440); RED BLOOD COUNT 4.57 X10'6 (4.20-5.60); RED CELL DISTRIBUTION WIDTH 15.8 % (11.5-14.5); WHITE BLOOD COUNT 10.2 X10'3 (4.5-11.0)
[2024-08-28 08:26] LABS: ALANINE AMINOTRANSFERASE 18 U/L (12-78); ALBUMIN 4.6 G/DL (3.4-5.0); ALBUMIN/GLOBULIN RATIO 1.2 (1.1-1.5); ALKALINE PHOSPHATASE 124 IU/L (46-116); ANION GAP 20 (8-16); ASPARTATE AMINO TRANSFERASE 49 U/L (10-37); BILIRUBIN,TOTAL 0.9 MG/DL (0.1-1.0); BLOOD UREA NITROGEN 7 MG/DL (7-18); BUN/CREATININE RATIO 9.1 (10.0-20.0); CALCIUM 9.3 MG/DL (8.5-10.1); CHLORIDE 104 MMOL/L (99-107); CREATININE 0.77 MG/DL (0.40-0.90); ETHANOL 29 MG/DL (<10); GLUCOSE 148 MG/DL (70-104); LIPASE 19 U/L (16-77); POTASSIUM 4.7 MMOL/L (3.5-5.1); SODIUM 142 MMOL/L (135-145); TOTAL CARBON DIOXIDE 18.2 MMOL/L (24-32); TOTAL PROTEIN 8.5 G/DL (6.4-8.2); eCRCL 71 ML/MIN; eGFR 86 ML/MIN
[2024-08-28] MEDS: diazepam inj 5 MG/ML inj. IV ONE (08:31)
[2024-08-28] MEDS ORDERED: potassium Cl 40MEQ/1/2NS 520ml 520 ML IV PRN (08:40)
[2024-08-28] MEDS ORDERED: acetaminophen 325mg tablet PO PRN ×2 (08:40)
[2024-08-28] MEDS ORDERED: magnesium Cl slow-release 64mg tablet PO PRN (08:40)
[2024-08-28] MEDS ORDERED: potassium Cl 20 mEq SR tablet PO PRN ×2 (08:40)
[2024-08-28] MEDS ORDERED: magnesium sulf-water 4G/100mL 100 ML IV PRN (08:40)
[2024-08-28] MEDS ORDERED: magnesium sulf-water 2g/50mL 50 ML IV PRN (08:40)
[2024-08-28] MEDS ORDERED: haloperidol lactate 5mg/ml inj IM PRN (08:45)
[2024-08-28] MEDS ORDERED: diazepam inj 5 MG/ML inj. IV PRN (08:45)
[2024-08-28] MEDS ORDERED: haloperidol 5mg tablet PO PRN (08:45)
[2024-08-28] MEDS: nicotine 14mg patch - 24hr TD ONE (11:34)
[2024-08-28 12:20] VITALS: BP 101/72; PULSE 86; RESP 22; TEMP 97.4; O2SAT 99
--- NOTE | 2024-08-28 13:05 | HISTORY AND PHYSICAL-Residence ---
History & Physical Providers to CC Resident Creating Document: KALEB STARK, RES ~ History of Present Illness Primary Medical Doctor: EVANGELISTA Clement Reason for Admit\Complaint: Alcohol withdrawal History of Present Illness 33-year-old female patient with past medical history of alcoholism come anxiety and depression came to the hospital with generalized weakness and nausea. The patient reports that night, proximally 4:30 a.m. she woke up with generalized weakness, two episodes of bone minute described as a pale yellowish liquid, endorses headache for 4/10 in intensity localized in the frontal area, without radiation. The patient also endorses dizziness describing as everything is turning around her. After her episodes of vomit decided to call to the ambulance who brought her to the hospital. The patient accepts that she has been drinking every day at least two shots of vodka and using marijuana every night. The patient currently denies any chest pain, palpitations, hallucinations, urinary or intestinal symptoms. Allergies: Coded Allergies: No Known Drug Allergies (Verified Allergy, Unknown, 08/28/24) codeine (Unverified Adverse Reaction, Intermediate, N/V, 08/28/24) Home Medications Home Medications Active Losartan Potassium 25 Mg Tablet 50 Mg PO DAILY 30 Days Amlodipine Besylate 5 Mg Tablet 5 Mg PO DAILY 30 Days Folic Acid* (Folic Acid) Y Tab 1 Mg PO DAILY 30 Days Ondansetron Odt (Ondansetron HCl) 8 Mg Tab.rapdis 1 Tab PO TID PRN Vitamin B-1 (Thiamine Mononitrate) 100 Mg Tablet 1 Tab PO DAILY 30 Days Thera Tablet (Multivitamin with Folic Acid) 400 Mcg Tablet 1 Each PO Q24H 28 Days Pantoprazole Sodium 40 Mg Tablet.dr 40 Mg PO DAILY 30 Days Use pantoprazole before breakfast Vitamin B-1 (Thiamine HCl) 50 Mg Tablet 2 Tab PO DAILY 30 Days Naltrexone Hcl 50 Mg Tablet 1 Tab PO DAILY 30 Days Past Medical History Past Medical History Anxiety. Depression. Alcohol use disorder. Past Surgical History Surgical History Comment None Family History Family History: (CAD) Coronary arteriosclerosis FATHER, Onset:Unknown FH: bipolar disorder MOTHER, Onset:Unknown FH: cancer MOTHER, Onset:Unknown FH: hypertension FATHER, Onset:Unknown Past Social History Smoking: Less than 1 pack/day (The patient accepts smoking half a pack a day since she was 18 years old.) Alcohol Use: Heavy (The patient accepts drinking two shots of vodka, sometimes six beers per day. She has been drinking since she was 18 years old.) Drug Use: Marijuana (The patient accepts smoking marijuana every night.) Lives with: Family Lives In: Home Occupation: unemployed ROS All Other Systems: Reviewed and Negative Exam Vitals: Vital Signs Date Time Temp Pulse Resp B/P (MAP) Pulse Ox O2 Delivery O2 Flow Rate FiO2 08/28/24 12:20 97.4 86 22 101/72 (82) 99 Room Air 08/28/24 08:24 0 Diagnostic Data Last Recorded Lab Results: 08/28/24 0752 08/28/24 0752 Advance Care Planning Advanced Care plannin - 30 Minutes (I spent a total of 17 minutes on reviewing various resuscitative measures/ACP with the patient at the time of admission. The patient has decided on a full code status.) Additional Plan Assessment and plan: 33-year-old female patient came to the hospital with chief complaint of generalized weakness, nausea, vomiting. Alcohol withdrawal: Possible cannabinoid hyperemesis syndrome: High anion gap metabolic acidosis: The patient has a history of alcohol consumption, vodka and beer every day. The patient also endorses smoking marihuana every night. Alcohol levels 29. Follow-up urine toxicology. Alcohol withdrawal protocol in place. Diazepam and haloperidol for anxiety p.r.n. Follow-up ABG. Folic acid 1 mg daily. Thiamine 200 mg t.i.d. IV. human resources services specialist consulted. Substance use navigator consulted. Ondansetron q.6h PRN. Hyperglycemia: Hemoglobin A1c 5.0 on 07/04/2024. Macrocytosis: Hemoglobin and hematocrit within reference range. MCV 101.7. Currently on thiamine and folic acid. Hyperglycemia: Glucose levels 190 Follow-up hemoglobin A1c. Hypoglycemia protocol. Code status: Full code DVT prophylaxis: SCDs and heparin Analgesia/sedation: Diazepam Line/tube: PIV GI prophylaxis: None Nutrition: Regular diet PT: Yes Prognosis: Guarded Disposition: Admission to PCU with telemetry. Kaleb Skelton Internal Medicine Resident [facility] Date of Service: August 28, 2024 Billing Provider: RADHA LEIVA MD Common Visit Codes: [id number] INP/OBS CARE (HIGH) Secondary Visit Codes: [id number] CARE PLAN 30 MINUTES KALEB STARK, RES August 28, 2024 13:05 RADHA LEIVA MD August 28, 2024 20:24
[2024-08-28] MEDS: thiamine 100mg/ml 2ml inj. IV SCH (13:22)
[2024-08-28 15:00] VITALS: BP 103/64; PULSE 98; RESP 14; TEMP 97.5; O2SAT 98
[2024-08-28 20:00] VITALS: RESP 17; O2SAT 98
[2024-08-28] MEDS: heparin, porcine 5000 units/ml vial SQ SCH (20:46)
[2024-08-28 22:00] VITALS: BP 120/75; PULSE 76; RESP 20; TEMP 97.8; O2SAT 100
[2024-08-28 22:02] LABS: BILIRUBIN,URINE NEGATIVE (Neg); CLARITY,URINE CLEAR (Clear); COLOR,URINE YELLOW (Yellow); GLUCOSE, URINE 100 mg/dl (Neg); KETONES,URINE 15 mg/dl (Neg); LEUKOCYTE ESTERASE ,URINE NEGATIVE (Neg); NITRITES, URINE NEGATIVE (Neg); OCCULT BLOOD,URINE NEGATIVE (Neg); PROTEIN,URINE NEGATIVE (Neg); UROBILINOGEN,URINE 0.2 E.U/dL (0.2-1.0)
[2024-08-28 22:03] LABS: UA COLLECTION TYPE CLN CATCH MIDSTREAM; URINE HCG NEGATIVE (NEG)
[2024-08-28 22:25] LABS: URINE AMPHETAMINE SCREEN NEGATIVE (Neg); URINE BARBITUATE SCREEN NEGATIVE (Neg); URINE BENZODIAZEPINES SCREEN POSITIVE (Neg); URINE CANNABINOID SCREEN POSITIVE (Neg); URINE COCAINE SCREEN NEGATIVE (Neg); URINE METHADONE SCREEN NEGATIVE (Neg); URINE OPIATE SCREEN NEGATIVE (Neg); URINE PHENCYCLIDINE SCREEN NEGATIVE (Neg)
[2024-08-29] VITALS (9 sets, daily range): BP systolic 111–136; BP diastolic 73–92; PULSE 64–104; RESP 14–20; TEMP 97–98.4; O2SAT 94–100
[2024-08-29 07:14] LABS: BASOPHILS # (AUTO) 0.1 X10'3 (0-0.2); EOSINOPHILS # (AUTO) 0.1 X10'3 (0-0.9); EOSINOPHILS % (AUTO) 1.3 % (0-6); HEMATOCRIT 42.8 % (35.0-45.0); HEMOGLOBIN 14.4 g/dl (12.0-16.0); LYMPHOCYTES # (AUTO) 1.4 X10'3 (1.1-4.8); LYMPHOCYTES % (AUTO) 25.3 % (21-51); MEAN CORPUSCULAR HEMOGLOBIN 34.2 PG (27.0-31.0); MEAN CORPUSCULAR HGB CONC 33.7 g/dL (33.0-36.5); MEAN CORPUSCULAR VOLUME 101.6 FL (78-98); MEAN PLATELET VOLUME 8.9 FL (7.4-10.4); MONOCYTES # (AUTO) 0.4 X10'3 (0-0.9); MONOCYTES % (AUTO) 7.9 % (2-12); NEUTROPHILS # (AUTO) 3.5 X10'3 (1.8-7.7); NEUTROPHILS % (AUTO) 64.5 % (42-75); PLATELET COUNT 140 X10'3 (140-440); RED BLOOD COUNT 4.22 X10'6 (4.20-5.60); RED CELL DISTRIBUTION WIDTH 15.1 % (11.5-14.5); WHITE BLOOD COUNT 5.3 X10'3 (4.5-11.0)
[2024-08-29 07:50] LABS: ALANINE AMINOTRANSFERASE 16 U/L (12-78); ALBUMIN 3.6 G/DL (3.4-5.0); ALKALINE PHOSPHATASE 94 IU/L (46-116); ANION GAP 13 (8-16); ASPARTATE AMINO TRANSFERASE 33 U/L (10-37); BLOOD UREA NITROGEN 6 MG/DL (7-18); BUN/CREATININE RATIO 10.5 (10.0-20.0); CALCIUM 8.6 MG/DL (8.5-10.1); CHLORIDE 106 MMOL/L (99-107); CREATININE 0.57 MG/DL (0.40-0.90); GLUCOSE 134 MG/DL (70-104); LIPASE 44 U/L (16-77); PHOSPHORUS 2.5 MG/DL (2.3-4.5); POTASSIUM 3.8 MMOL/L (3.5-5.1); SODIUM 141 MMOL/L (135-145); TOTAL CARBON DIOXIDE 22.2 MMOL/L (24-32); TOTAL PROTEIN 7.1 G/DL (6.4-8.2); eCRCL 96 ML/MIN; eGFR > 90 ML/MIN
[2024-08-29] MEDS: multivitamins, therapeutics tablet PO SCH (08:46)
[2024-08-29] MEDS: folic acid 1mg/0.2ml inj IV SCH (08:47)
--- NOTE | 2024-08-29 11:49 | PROGRESS NOTE ---
Daily Progress Note Providers to CC New complaint today resting comfortably in the bed ~ Central Line/PICC still needed: No Fournier-Non Protocol Fournier Indications Met/Not Met: F/C Indications Not Met Antibiotic Timeout Antibiotic Ordered?: No MRSA Education MRSA Education Provided to pt: No Subjective As above Objective Vital Signs Date Time Temp Pulse Resp B/P (MAP) Pulse Ox O2 Delivery O2 Flow Rate FiO2 08/29/24 11:39 98 Room Air* 0 21 08/29/24 08:31 19 08/29/24 06:30 63 08/29/24 06:06 98.4 133/74 (93) Vital signs, stable ,afebrile. Pulse Oximetry reflects adequate oxygenation. General: well developed, well nourished. Awake , alert, and oriented x4, resting comfortably in the bed, in no acute distress . Skin: Warm, dry, no pallor, no rash or petechiae. HEENT: Atraumatic, normocephalic, EOMI, anicteric sclera B; pink conjunctiva; PERRLA, normal oropharynx, moist oral and nasal mucosa. Tympanic membrane , nose , throat clear. Neck: Trachea midline. Supple, full range of motion, no JVD, bruit , hepatojugular reflex , lymphadenopathy or masses, or other lesions Cardiac: Regular rhythm, regular rate no murmurs, rubs, or gallops. Normal S1 and S2, no S3 noticed. PMI is normal. Respiratory: Equal breath sounds bilaterally, no tachypnea; lungs clear to auscultation bilaterally, no wheezing ,rub or rales, or crackles. Chest wall is symmetric and without deformity. No signs of trauma. Chest wall is nontender. No signs of respiratory distress. Resonance is normal upon percussion bilaterally. Gastrointestinal: Abdomen symmetric, non-distended, soft, non-tender, normal bowel sounds x4 quadrant, normoactive, no hepatosplenomegaly , no masses , no bruit, no flank pain bilaterally. No voluntary guarding, rebound, or rigidity. No tenderness to percussion. No pulsatile masses. Equal femoral pulses. No Rey's sign or McBurney point tenderness. Back; no CVA tenderness bilaterally, no deformities. Neck and back are without deformity as well. No tenderness noted on palpation of the spinous processes. Spinous processes are midline. Cervical, thoracic, and lumbar paraspinal muscles are not tender and are without spasm. Musculoskeletal: Extremities, normal range of motion, non-tender, muscle strength 5/5 x 4. Negative Homans signs bilaterally on lower extremity. Distal pulses full symmetrical, no clubbing, cyanosis , edema. Neurological: Speech is clear, alert, and oriented x 4. No motor or sensory deficit, deep tendon reflexes normal, cerebellar intact. Cranial nerves II-XII intact. Psych: Alert and or appropriate, normal affect. Vascular: Good distal pulses, which are equal x4; capillary refill less than 2 seconds. Lymphatic, no lymphadenopathy. Result Diagram: 08/29/2464208/29/24642 Problem\Assessment\Plan Assessment and plan: 33-year-old female patient came to the hospital with chief complaint of generalized weakness, nausea, vomiting. Alcohol withdrawal: Possible cannabinoid hyperemesis syndrome: High anion gap metabolic acidosis: The patient has a history of alcohol consumption, vodka and beer every day. The patient also endorses smoking marihuana every night. Alcohol levels 29. Follow-up urine toxicology. Alcohol withdrawal protocol in place. Diazepam and haloperidol for anxiety p.r.n. Follow-up ABG. Folic acid 1 mg daily. Thiamine 200 mg t.i.d. IV. services delivery driver consulted. Substance use navigator consulted. Ondansetron q.6h PRN. Hyperglycemia: Hemoglobin A1c 5.0 on 07/04/2024. Macrocytosis: Hemoglobin and hematocrit within reference range. MCV 101.7. Currently on thiamine and folic acid. Hyperglycemia: Glucose levels 190 Follow-up hemoglobin A1c. Hypoglycemia protocol. Code status: Full code DVT prophylaxis: SCDs and heparin Analgesia/sedation: Diazepam Line/tube: PIV GI prophylaxis: None Nutrition: Regular diet PT: Yes Prognosis: Guarded Sepsis Screening Reassessment Date: August 29, 2024 Date of Service: August 29, 2024 Billing Provider: JOSE RAMON MARQUEZ MD Common Visit Codes: [id number] INP/OBS CARE(HIGH) JOSE RAMON MARQUEZ MD August 29, 2024 11:49
[2024-08-29] MEDS: LORazepam 1 MG tablet PO PRN (13:01)
[2024-08-30 02:00] VITALS: BP 114/83; PULSE 76; RESP 14; TEMP 97.4; O2SAT 98
[2024-08-30 06:00] VITALS: BP 128/79; PULSE 77; RESP 18; TEMP 98.1; O2SAT 100
[2024-08-30 07:12] LABS: BASOPHILS # (AUTO) 0.1 X10'3 (0-0.2); BASOPHILS % (AUTO) 1.3 % (0-1); EOSINOPHILS # (AUTO) 0.1 X10'3 (0-0.9); EOSINOPHILS % (AUTO) 1.2 % (0-6); HEMATOCRIT 37.6 % (35.0-45.0); HEMOGLOBIN 12.8 g/dl (12.0-16.0); LYMPHOCYTES # (AUTO) 1.7 X10'3 (1.1-4.8); LYMPHOCYTES % (AUTO) 29.9 % (21-51); MEAN CORPUSCULAR HEMOGLOBIN 34.6 PG (27.0-31.0); MEAN CORPUSCULAR HGB CONC 34.2 g/dL (33.0-36.5); MEAN CORPUSCULAR VOLUME 101.4 FL (78-98); MEAN PLATELET VOLUME 9.7 FL (7.4-10.4); MONOCYTES # (AUTO) 0.3 X10'3 (0-0.9); MONOCYTES % (AUTO) 5.3 % (2-12); NEUTROPHILS # (AUTO) 3.5 X10'3 (1.8-7.7); NEUTROPHILS % (AUTO) 62.3 % (42-75); PLATELET COUNT 142 X10'3 (140-440); RED CELL DISTRIBUTION WIDTH 14.9 % (11.5-14.5); WHITE BLOOD COUNT 5.6 X10'3 (4.5-11.0)
[2024-08-30 07:32] LABS: ALANINE AMINOTRANSFERASE 19 U/L (12-78); ALBUMIN 3.2 G/DL (3.4-5.0); ALBUMIN/GLOBULIN RATIO 1.1 (1.1-1.5); ALKALINE PHOSPHATASE 76 IU/L (46-116); ANION GAP 5 (8-16); ASPARTATE AMINO TRANSFERASE 37 U/L (10-37); BILIRUBIN,TOTAL 0.5 MG/DL (0.1-1.0); BLOOD UREA NITROGEN 3 MG/DL (7-18); BUN/CREATININE RATIO 6.4 (10.0-20.0); CALCIUM 8.3 MG/DL (8.5-10.1); CHLORIDE 108 MMOL/L (99-107); CREATININE 0.47 MG/DL (0.40-0.90); GLUCOSE 90 MG/DL (70-104); LIPASE 28 U/L (16-77); MAGNESIUM 1.7 MG/DL (1.5-2.4); PHOSPHORUS 3.3 MG/DL (2.3-4.5); POTASSIUM 3.5 MMOL/L (3.5-5.1); SODIUM 141 MMOL/L (135-145); TOTAL CARBON DIOXIDE 27.6 MMOL/L (24-32); TOTAL PROTEIN 6.2 G/DL (6.4-8.2); eCRCL 116 ML/MIN; eGFR > 90 ML/MIN
[2024-08-30] MEDS: ondansetron/PF 4mg/2ml inj IV PRN (09:28)
[2024-08-30 10:00] VITALS: BP 118/80; PULSE 88; RESP 13; TEMP 99.2; O2SAT 100
[2024-08-30 11:51] VITALS: BP 118/80; PULSE 88; O2SAT 100
[2024-08-30] MEDS ORDERED: ONDA-243 PO (13:50)
--- NOTE | 2024-08-30 17:43 | DISCHARGE SUMMARY ---
Discharge Summary Providers to NO NEW COMPLAINT TODAY, ASKING TO BE DISCHARGED HOME ~ Discharge Summary Assessment GENERALIZED WEAKNESS CHRONIC ALCOHOL ABUSE INCLUDING CURRENTLY ALCOHOL WITHDRAWAL SYNDROME HYPERGLYCEMIA ANEMIA CHRONIC MARIJUANA USE INCLUDING CURRENTLY GENERALIZED ANXIETY DISORDER Admission Diagnosis: alcohol abuse Admission Diagnosis Comment: GENERALIZED WEAKNESS CHRONIC ALCOHOL ABUSE INCLUDING CURRENTLY ALCOHOL WITHDRAWAL SYNDROME HYPERGLYCEMIA ANEMIA CHRONIC MARIJUANA USE INCLUDING CURRENTLY GENERALIZED ANXIETY DISORDER Hospital Course DATE OF ADMISSION: August 28, 2024 DATE OF DISCHARGE: August 30, 2024 Discharge Diagnosis\Comment: GENERALIZED WEAKNESS CHRONIC ALCOHOL ABUSE INCLUDING CURRENTLY ALCOHOL WITHDRAWAL SYNDROME HYPERGLYCEMIA ANEMIA CHRONIC MARIJUANA USE INCLUDING CURRENTLY GENERALIZED ANXIETY DISORDER Operations\Procedures: None Consultants: None Complications: None Condition on DC: Stable Discharge Summary: This is a 33-year-old female patient with past medical history of alcoholism come anxiety and depression came to the hospital with generalized weakness and nausea. The patient reports that night, proximally 4:30 a.m. she woke up with generalized weakness, two episodes of bone minute described as a pale yellowish liquid, endorses headache for 4/10 in intensity localized in the frontal area, without radiation. The patient also endorses dizziness describing as everything is turning around her. After her episodes of vomit decided to call to the ambulance who brought her to the hospital. The patient accepts that she has been drinking every day at least two shots of vodka and using marijuana every night. The patient currently denies any chest pain, palpitations, hallucinations, urinary or intestinal symptoms. After admission patient was extensively evaluated and treated, today she feels fine asking to be discharged home, she will be discharged in stable condition, medication reconciled, recommended follow-up PCP in the morning, return to emergency department if condition worsens, today on physical exam Vital signs, stable ,afebrile. Pulse Oximetry reflects adequate oxygenation. General: well developed, well nourished. Awake , alert, and oriented x4, resting comfortably in the bed, in no acute distress . Skin: Warm, dry, no pallor, no rash or petechiae. HEENT: Atraumatic, normocephalic, EOMI, anicteric sclera B; pink conjunctiva; PERRLA, normal oropharynx, moist oral and nasal mucosa. Tympanic membrane , nose , throat clear. Neck: Trachea midline. Supple, full range of motion, no JVD, bruit , hepatojugular reflex , lymphadenopathy or masses, or other lesions Cardiac: Regular rhythm, regular rate no murmurs, rubs, or gallops. Normal S1 and S2, no S3 noticed. PMI is normal. Respiratory: Equal breath sounds bilaterally, no tachypnea; lungs clear to auscultation bilaterally, no wheezing ,rub or rales, or crackles. Chest wall is symmetric and without deformity. No signs of trauma. Chest wall is nontender. No signs of respiratory distress. Resonance is normal upon percussion bilaterally. Gastrointestinal: Abdomen symmetric, non-distended, soft, non-tender, normal bowel sounds x4 quadrant, normoactive, no hepatosplenomegaly , no masses , no bruit, no flank pain bilaterally. No voluntary guarding, rebound, or rigidity. No tenderness to percussion. No pulsatile masses. Equal femoral pulses. No Rey's sign or McBurney point tenderness. Back; no CVA tenderness bilaterally, no deformities. Neck and back are without deformity as well. No tenderness noted on palpation of the spinous processes. Spinous processes are midline. Cervical, thoracic, and lumbar paraspinal muscles are not tender and are without spasm. Musculoskeletal: Extremities, normal range of motion, non-tender, muscle strength 5/5 x 4. Negative Homans signs bilaterally on lower extremity. Distal pulses full symmetrical, no clubbing, cyanosis , edema. Neurological: Speech is clear, alert, and oriented x 4. No motor or sensory deficit, deep tendon reflexes normal, cerebellar intact. Cranial nerves II-XII intact. Psych: Alert and or appropriate, normal affect. Vascular: Good distal pulses, which are equal x4; capillary refill less than 2 seconds. Lymphatic, no lymphadenopathy. *Problems/Diagnosis: (1) Alcoholism (2) Alcoholism with alcohol dependence (3) Alcoholism (4) Alcohol withdrawal Status: Acute (5) Alcoholism Status: Acute Total Time Spent on D/C: > 30 Minutes Date of Service: August 30, 2024 Billing Provider: JOSE RAMON MARQUEZ MD Common Visit Codes: 19388-[id number]/OBS DISCH DAY >30min JOSE RAMON MARQUEZ MD August 30, 2024 11:46
[2024-09-01] MEDS ORDERED: thiamine 100mg tablet PO SCH (08:00)
[2024-09-02] MEDS ORDERED: folic acid 1mg tablet PO SCH (08:00)
== END 2024-08-30 14:10 | disposition home or self-care (01) | DRG 861 ==
LOC: ER 07:19 → ED HOLD 08:42 → PCU 3S 11:01
PROVIDERS: ADMIT Internal Medicine; ATTEND Internal Medicine
DX: R53.1 Weakness (principal); E87.20 Acidosis, unspecified; D75.89 Other specified diseases of blood and blood-forming organs; D64.9 Anemia, unspecified; F10.239 Alcohol dependence with withdrawal, unspecified; I25.10 Atherosclerotic heart disease of native coronary artery without angina pectoris; Y90.9 Presence of alcohol in blood, level not specified; F17.210 Nicotine dependence, cigarettes, uncomplicated; F12.90 Cannabis use, unspecified, uncomplicated; F31.9 Bipolar disorder, unspecified; F41.1 Generalized anxiety disorder; R73.9 Hyperglycemia, unspecified; Z79.899 Other long term (current) drug therapy; Z88.5 Allergy status to narcotic agent; Z82.49 Family history of ischemic heart disease and other diseases of the circulatory system; Z81.8 Family history of other mental and behavioral disorders
CPT/HCPCS: 36415; 80053; 80305; 80320; 81003; 81025; 82948; 83605; 83690; 83735; 84100; 85025; 93005; 96361; 96374; 96375; 99285; G0378; J1644; J2060; J2405; J3360; J3411; J3490; J7030

== ENCOUNTER 2024-10-14 12:59 | Inpatient (IN) | payer MEDICAID ==
[~2024-10-14] VITALS: Ht 152.4 cm; Wt 45.0 kg
[~2024-10-14 12:59] MED LIST changes: +ONDA-243 PO
--- NOTE | 2024-10-14 13:43 | ELECTROCARDIOGRAPH REPORT ---
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 Armando Frey Measurements Intervals [place] Rate: 93 P: 83 [place]: 106 QRS: 80 QRSD: 75 T: 20 QT: 385 QTc: 479 Interpretive Statements Sinus rhythm Short [place] interval Borderline T wave abnormalities Borderline prolonged QT interval Electronically Signed On 10-23-2024 18:43:[address] Armando Frey Please click the below link to view image of tracing.
[2024-10-14 13:46] LABS: BASOPHILS % (AUTO) 0.5 % (0-1); EOSINOPHILS % (AUTO) 0.1 % (0-6); HEMATOCRIT 42.6 % (35.0-45.0); HEMOGLOBIN 14.4 g/dl (12.0-16.0); LYMPHOCYTES # (AUTO) 0.9 X10'3 (1.1-4.8); LYMPHOCYTES % (AUTO) 12.3 % (21-51); MEAN CORPUSCULAR HEMOGLOBIN 34.4 PG (27.0-31.0); MEAN CORPUSCULAR HGB CONC 33.9 g/dL (33.0-36.5); MEAN CORPUSCULAR VOLUME 101.3 FL (78-98); MEAN PLATELET VOLUME 8.5 FL (7.4-10.4); MONOCYTES # (AUTO) 0.3 X10'3 (0-0.9); MONOCYTES % (AUTO) 4.6 % (2-12); NEUTROPHILS % (AUTO) 82.5 % (42-75); PLATELET COUNT 222 X10'3 (140-440); RED BLOOD COUNT 4.21 X10'6 (4.20-5.60); RED CELL DISTRIBUTION WIDTH 13.6 % (11.5-14.5); WHITE BLOOD COUNT 7.3 X10'3 (4.5-11.0)
[2024-10-14 14:26] LABS: ALANINE AMINOTRANSFERASE 19 U/L (12-78); ALBUMIN 4.5 G/DL (3.4-5.0); ALBUMIN/GLOBULIN RATIO 1.2 (1.1-1.5); ALKALINE PHOSPHATASE 113 IU/L (46-116); ANION GAP 23 (8-16); ASPARTATE AMINO TRANSFERASE 34 U/L (10-37); BILIRUBIN,TOTAL 0.5 MG/DL (0.1-1.0); BLOOD UREA NITROGEN 8 MG/DL (7-18); BUN/CREATININE RATIO 11.3 (10.0-20.0); CALCIUM 9.1 MG/DL (8.5-10.1); CHLORIDE 103 MMOL/L (99-107); CREATININE 0.71 MG/DL (0.40-0.90); ETHANOL 122 MG/DL (<10); GLUCOSE 143 MG/DL (70-104); POTASSIUM 3.9 MMOL/L (3.5-5.1); SODIUM 145 MMOL/L (135-145); TOTAL PROTEIN 8.4 G/DL (6.4-8.2); eCRCL 79 ML/MIN; eGFR > 90 ML/MIN
--- NOTE | 2024-10-14 14:35 | Physician Documentation ---
History of Present Illness ~ Chief Complaint: ETOH Withdrawl Stated Complaint: ALCOHOL WITHDRAWAL Time Seen by MD: 13:27 Primary Medical Doctor: EVANGELISTA Clement Mode of Arrival: EMS HPI 34-year-old female, history of chronic alcohol abuse, who presents with nausea and vomiting The patient tells me that she started to feel ill this morning, felt okay yesterday. She reports having generalized abdominal pain, nausea and vomiting. She was not able to keep down any food or fluids today. No alcohol today. No fevers or chills. No dysuria. No significant diarrhea. She does report a history of alcohol withdrawal in the past. She tells me she drinks about a large bottle of hard alcohol daily. Last drink was last night No other acute concerns Tetanus within 5 years?: Yes Medication Reconciliation Allergies: Coded Allergies: No Known Drug Allergies (Verified Allergy, Unknown, 08/28/24) codeine (Unverified Adverse Reaction, Intermediate, N/V, 08/28/24) Scheduled Amlodipine Besylate (Amlodipine Besylate), 5 MG PO DAILY Folic Acid* (Folic Acid*), 1 MG PO DAILY Losartan Potassium (Losartan Potassium), 50 MG PO DAILY Multivitamin with Folic Acid (Thera Tablet), 1 EACH PO Q24H Naltrexone Hcl (Naltrexone Hcl), 1 TAB PO DAILY Pantoprazole Sodium (Pantoprazole Sodium), 40 MG PO DAILY Thiamine HCl (Vitamin B-1), 2 TAB PO DAILY Thiamine Mononitrate (Vitamin B-1), 1 TAB PO DAILY Scheduled PRN ONDANSETRON ODT 4mg tablet (Ondansetron Odt), 1 TAB PO Q6H PRN PRN for nausea/vomiting Ondansetron 8mg ODT (Ondansetron Odt), 1 TAB PO TID PRN for nausea/vomiting Past Medical History Past Medical History: Gastritis, Pancreatitis Past Surgical History: no surgical history Patient History: (CAD) Coronary arteriosclerosis FATHER, Onset:Unknown FH: bipolar disorder MOTHER, Onset:Unknown FH: cancer MOTHER, Onset:Unknown FH: hypertension FATHER, Onset:Unknown Alcohol Use: Heavy Drug Use: marijuana Lives with: Family Lives In: Home Occupation: unemployed Review of Systems Constitutional: Denies: chills, fever Gastrointestinal: Reports: abdominal pain, nausea, vomiting; Denies: diarrhea Physical Exam Vital Signs: Temperature: 97.4, Source: Oral, Heart Rate: 81, Respiratory Rate: 18, BP: 127/86, Pulse Oximetry: 98, Weight: 45.000 Physical Exam General: This is an ill-appearing thin young female, actively dry heaving HEENT: Atraumatic, oropharynx appears dry Heart: Mild tachycardic, appears regular Lungs: Clear breath sounds bilateral, normal work of breathing, normal oxygen saturation on room air Abdomen: Soft, nondistended, thin abdomen. The patient does have tenderness to palpation in the central abdomen, without rebound or guarding. Palpation induces dry heaving Neuro: Alert and oriented, no focal deficits Psychiatric: Flattened affect, slow to answer questions, has a mild tremor and tongue fasciculations Progress Results/Orders Results/Orders Orders - HANG HARRISON MD Page Hospitalist (10/14/24 16:13) Normal Saline 1000ml (Sodium Chloride 10 (10/14/24 16:15) Completed Orders - HANG HARRISON MD Ethanol (10/14/24 13:28) Cbc/Diff (10/14/24 13:28) CMP (10/14/24 13:28) Electrocardiogram (10/14/24 13:28) Normal Saline 1000ml (Sodium Chloride 10 (10/14/24 14:35) Ondansetron Inj. (Zofran 4mg/2ml Vial) (10/14/24 14:35) Lorazepam Inj (Ativan Inj) (10/14/24 14:35) Hcg Serum Qt (10/14/24 13:40) Lipase (10/14/24 13:40) Lorazepam Inj (Ativan Inj) (10/14/24 16:10) Chlordiazepoxide Capsule (Librium Capsul (10/14/24 16:10) Lorazepam Inj (Ativan Inj) (10/14/24 16:15) Medications Received in ER Medications (Trade) Dose Ordered Sig/Stefanie Route PRN Reason Start Time Stop Time Status Last Admin Dose Admin Sodium Chloride 1,000 ml @ 1,000 mls/hr ONCE ONCE IV 10/14/24 14:35 10/14/24 15:34 DC 10/14/24 14:51 1,000 MLS/HR (Zofran 4mg/2ml vial) 4 mg ONCE ONCE IV 10/14/24 14:35 10/14/24 14:36 DC 10/14/24 14:50 4 MG (Ativan inj) 1 mg ONCE ONCE IV 10/14/24 14:35 10/14/24 14:36 DC 10/14/24 14:50 1 MG Vital Signs 10/14/24 10/14/24 10/14/24 13:14 13:57 15:00 Temp 97.4 Pulse 81 76 Resp 14 18 23 B/P (MAP) 127/86 163/117 (132) Pulse Ox 98 100 Laboratory Tests Test 10/14/24 13:40 White Blood Count 7.3 Red Blood Count 4.21 Hemoglobin 14.4 Hematocrit 42.6 Mean Corpuscular Volume 101.3 H Mean Corpuscular Hemoglobin 34.4 H Mean Corpuscular Hemoglobin Concent 33.9 Red Cell Distribution Width 13.6 Platelet Count 222 Mean Platelet Volume 8.5 Neutrophils (%) (Auto) 82.5 H Lymphocytes (%) (Auto) 12.3 L Monocytes (%) (Auto) 4.6 Eosinophils (%) (Auto) 0.1 Basophils (%) (Auto) 0.5 Neutrophils # (Auto) 6.0 Lymphocytes # (Auto) 0.9 L Monocytes # (Auto) 0.3 Eosinophils # (Auto) 0.0 Basophils # (Auto) 0.0 CBC Comment Sodium Level 145 Potassium Level 3.9 Chloride Level 103 Carbon Dioxide Level 19.0 L Anion Gap 23 H Blood Urea Nitrogen 8 Creatinine 0.71 Estimated GFR/1.73 m2 > 90 BUN/Creatinine Ratio 11.3 Glucose Level 143 H Calcium Level 9.1 Total Bilirubin 0.5 Aspartate Amino Transf (AST/SGOT) 34 Alanine Aminotransferase (ALT/SGPT) 19 Alkaline Phosphatase 113 Total Protein 8.4 H Albumin 4.5 Globulin 3.9 Albumin/Globulin Ratio 1.2 Lipase 46 HCG Beta Subunit < 1.0 Chemistry Comments Ethyl Alcohol Level 122 H Re-Evaluation Re-Evaluation : Re-Evaluation: Improved Progress The patient appears slightly improved, but still has tremors, tongue fasciculations and appears dehydrated. She is still tachycardic. Plan: Further treatment for alcohol withdrawal and admission Consults/PCP Consults/PCP : Additional Comment Consult: I spoke to the internal medicine service, for admission in the hospital Medical Decision Making Differential Dx:Considerations: Intoxication - ETOH, Intoxication - other drug Additional Comment Differential diagnosis includes Alcohol withdrawal, dehydration, electrolyte derangement, stomach virus, food poisoning, pancreatitis Assessment The patient presents with nausea and vomiting and other symptoms that appear consistent with acute alcohol withdrawal. She was given IV fluids and benzodiazepines as well as nausea medications. Laboratory testing does not show any dangerous findings, appears consistent with dehydration and possible mild alcoholic ketoacidosis. She was given further treatments including further fluids and benzodiazepines, and will be admitted to the medicine service for further treatment of significant alcohol withdrawal. Departure Impression: Primary Impression: Alcohol withdrawal syndrome Additional Impressions: Nausea and vomiting Dehydration Alcoholic ketoacidosis Referrals: NO PRIMARY CARE PROVIDER (PCP) Signature Scribe Signature: henri Attestation: HANG Rodriguez MD Oct 14, 2024 14:35
[2024-10-14] MEDS: ondansetron/PF 4mg/2ml inj IV ONE (14:50)
[2024-10-14] MEDS: LORazepam 2 mg/ml vial IV ONE ×2 (14:50→17:00)
[2024-10-14] MEDS: normal saline 1000ml 1,000 ML IV ONE ×2 (14:51→17:00)
[2024-10-14 15:15] LABS: LIPASE 46 U/L (16-77)
[2024-10-14 15:23] LABS: BETA HCG,QUANTITATIVE < 1.0 mIU/ml
[2024-10-14] MEDS ORDERED: LORazepam 2 mg/ml vial IV ONE (16:10)
--- NOTE | 2024-10-14 16:53 | HISTORY AND PHYSICAL ---
History & Physical Providers to CC Pain, nausea vomiting abdominal pain alcohol withdrawal syndrome ~ History of Present Illness Reason for Admit\Complaint: As above History of Present Illness This is a 34-year-old female, history of chronic alcohol and tobacco abuse, including ongoing and currently, history of hypertension, pyelonephritis, pancreatitis x3, history of GI bleeding seizure anemia presented today to emergency department chief complaint nausea vomiting associated with abdominal pain and tremor of upper extremity hands, in addition this is the patient who presents with nausea and vomiting The patient tells me that she started to feel ill this morning, felt okay yesterday. She reports having generalized abdominal pain, nausea and vomiting. She was not able to keep down any food or fluids today. No alcohol today. No fevers or chills. No dysuria. No significant diarrhea. She does report a history of alcohol withdrawal in the past. She tells me she drinks about a large bottle of hard alcohol daily. Last drink was last night No other acute concerns. In emergency department she was evaluated by physician was diagnosed with alcohol withdrawal syndrome acute alcohol intoxication alcoholic ketoacidosis, and decision was made to admit patient for further evaluation and treatment. No additional complaint or concern. Allergies: Coded Allergies: No Known Drug Allergies (Verified Allergy, Unknown, 08/28/24) codeine (Unverified Adverse Reaction, Intermediate, N/V, 08/28/24) Active prescriptions I reviewed reconciled Home Medications Home Medications Active Ondansetron Odt (Ondansetron HCl) 4 Mg Tab.rapdis 1 Tab PO Q6H PRN PRN 10 Days Losartan Potassium 25 Mg Tablet 50 Mg PO DAILY 30 Days Amlodipine Besylate 5 Mg Tablet 5 Mg PO DAILY 30 Days Folic Acid* (Folic Acid) Y Tab 1 Mg PO DAILY 30 Days Ondansetron Odt (Ondansetron HCl) 8 Mg Tab.rapdis 1 Tab PO TID PRN Vitamin B-1 (Thiamine Mononitrate) 100 Mg Tablet 1 Tab PO DAILY 30 Days Thera Tablet (Multivitamin with Folic Acid) 400 Mcg Tablet 1 Each PO Q24H 28 Days Pantoprazole Sodium 40 Mg Tablet.dr 40 Mg PO DAILY 30 Days Use pantoprazole before breakfast Vitamin B-1 (Thiamine HCl) 50 Mg Tablet 2 Tab PO DAILY 30 Days Naltrexone Hcl 50 Mg Tablet 1 Tab PO DAILY 30 Days Past Medical History Past Medical History As in HPI Past Surgical History Surgical History Comment As in HPI Family History Family History: Family history was reviewed; no changes noted. Past Social History Social History Comment Positive for chronic tobacco and alcohol abuse including ongoing and currently, deny illicit drug use, live with the family good social support Health Maintenance Health Maintenance Noncontributory ROS ROS Constitutional : no fever , no chills, or weakness. No diaphoresis. Allergic/Immunologic, no lymphadenopathy, no hives, no skin eruptions. Eyes, no recent visual changes, no eye pain, no photophobia. Ears, nose, mouth, throat, no sore throat, no nosebleed, no ear pain. Cardiovascular, no palpitations, skipped beats, chest pain, no peripheral edema, Respiratory, no dyspnea, orthopnea, cough, hemoptysis, chest wall pain. Gastrointestinal, positive for abdominal pain, nausea, vomiting, no constipation or diarrhea. : no dysuria, hematuria, pelvic pain, urethral d/c. Endocrine, no polyuria, polydipsia, recent unintentional weight gain or loss. Hematologic/Lymphatic, no petechiae, no enlarged lymph nodes, no bone pain. Integumentary, no rash, no skin lesions, Musculoskeletal, no muscle aches, or pain, no muscle cramps, no recent change in gait Neurological, no dizziness, no headache, no syncope, no paresthesia. Positive for tremor upper extremity bilaterally including hands forearm Psychiatric, no delusions, visual hallucinations, or hearing hallucinations. ROS - in rest is as in HPI. Exam Vitals: Vital Signs Date Time Temp Pulse Resp B/P (MAP) Pulse Ox O2 Delivery O2 Flow Rate FiO2 10/14/24 15:00 76 23 163/117 (132) 100 10/14/24 13:14 97.4 Vital signs, stable ,afebrile. Pulse Oximetry reflects adequate oxygenation. BMI is 19, weight 45 kg General: well developed, well nourished. Awake , alert, and oriented x4, resting comfortably in the bed, in acute distress secondary to tremor, nausea vomiting Skin: Warm, dry, no pallor, no rash or petechiae. HEENT: Atraumatic, normocephalic, EOMI, anicteric sclera B; pink conjunctiva; PERRLA, normal oropharynx, moist oral and nasal mucosa. Tympanic membrane , nose , throat clear. Neck: Trachea midline. Supple, full range of motion, no JVD, bruit , hepatojugular reflex , lymphadenopathy or masses, or other lesions Cardiac: Regular rhythm, regular rate no murmurs, rubs, or gallops. Normal S1 and S2, no S3 noticed. PMI is normal. Respiratory: Equal breath sounds bilaterally, no tachypnea; lungs clear to auscultation bilaterally, no wheezing ,rub or rales, or crackles. Chest wall is symmetric and without deformity. No signs of trauma. Chest wall is nontender. No signs of respiratory distress. Resonance is normal upon percussion bilaterally. Gastrointestinal: Abdomen symmetric, non-distended, soft, non-tender, normal bowel sounds x4 quadrant, normoactive, no hepatosplenomegaly , no masses , no bruit, no flank pain bilaterally. No voluntary guarding, rebound, or rigidity. No tenderness to percussion. No pulsatile masses. Equal femoral pulses. No Rey's sign or McBurney point tenderness. Back; no CVA tenderness bilaterally, no deformities. Neck and back are without deformity as well. No tenderness noted on palpation of the spinous processes. Spinous processes are midline. Cervical, thoracic, and lumbar paraspinal muscles are not tender and are without spasm. : Deferred by patient Musculoskeletal: Extremities, normal range of motion, non-tender, muscle strength 5/5 x 4. Negative Homans signs bilaterally on lower extremity. Distal pulses full symmetrical, no clubbing, cyanosis , edema. Neurological: Speech is clear, alert, and oriented x 4. No motor or sensory deficit, deep tendon reflexes normal, cerebellar intact. Cranial nerves II-XII intact. Positive for upper extremity including hand forearm tremor Psych: Alert and or appropriate, normal affect. Vascular: Good distal pulses, which are equal x4; capillary refill less than 2 seconds. Lymphatic, no lymphadenopathy. Diagnostic Data Last Recorded Lab Results: 10/14/24 1340 10/14/24 1340 Advance Care Planning Advanced Care plannin - 30 Minutes Additional Plan Assessment Chronic alcohol, tobacco abuse including currently on ongoing Acute alcohol intoxication Alcohol withdrawal syndrome Alcoholic ketoacidosis Dehydration associated with Ketonuria Hypertension Uncontrolled additional comorbidities, history of pyelonephritis, pancreatitis x3, and GI bleeding seizure anemia Plan IV fluids, banana bag, Additional lab work pending Alcohol withdrawal protocol Substance abuse navigator consult Consulted for 5 minutes. Using tobacco and alcohol patient agrees started to nicotine patch Reconciled home medications DVT gastropathy prophylaxis addressed Sepsis Screening Reassessment Date: Oct 14, 2024 Date of Service: Oct 14, 2024 Billing Provider: JOSE RAMON MARQUEZ MD Common Visit Codes: [id number] INP/OBS CARE (HIGH) Secondary Visit Codes: 02273-[id number] CHNG SMOKING 3-10M, [id number] CARE PLAN 30 MINUTES JOSE RAMON MARQUEZ MD Oct 14, 2024 16:53
[2024-10-14] MEDS: chlordiazePOXIDE 25mg capsule PO ONE (17:00)
[2024-10-14] MEDS ORDERED: potassium Cl 40MEQ/1/2NS 520ml 520 ML IV PRN (17:15)
[2024-10-14] MEDS ORDERED: LORazepam 2 mg/ml vial IV PRN (17:15)
[2024-10-14] MEDS ORDERED: dextrose 50%-water 50ml dispensing syringe IV PRN (17:15)
[2024-10-14] MEDS ORDERED: mag hydrox/Alum hydrox/simeth 30ml oral suspension PO PRN (17:15)
[2024-10-14] MEDS ORDERED: acetaminophen 650mg rectal suppository RC PRN (17:15)
[2024-10-14] MEDS ORDERED: bisacodyl 10mg suppository rectal RC PRN (17:15)
[2024-10-14] MEDS ORDERED: HYDROcodone/acetaminophen 10/325mg tab PO PRN (17:15)
[2024-10-14] MEDS ORDERED: ondansetron 4mg rapidly disintigrating tab PO PRN (17:15)
[2024-10-14] MEDS ORDERED: metoclopramide 5 mg/ml inj IV PRN (17:15)
[2024-10-14] MEDS ORDERED: acetaminophen 325mg tablet PO PRN (17:15)
[2024-10-14] MEDS ORDERED: magnesium Cl slow-release 64mg tablet PO PRN (17:15)
[2024-10-14] MEDS ORDERED: diphenhydrAMINE 50 mg/ml inj IV PRN (17:15)
[2024-10-14] MEDS ORDERED: HYDROcodone/acetaminophen 5mg/325mg tablet PO PRN (17:15)
[2024-10-14] MEDS: dextrose 5%-1/2 normal saline 1,000 ML IV SCH (17:15)
[2024-10-14] MEDS ORDERED: magnesium hydroxide 30ml (MOM) UD suspension PO PRN (17:15)
[2024-10-14] MEDS ORDERED: ondansetron/PF 4mg/2ml inj IV PRN (17:15)
[2024-10-14] MEDS ORDERED: morphine 2 MG/ML inj. syringe IV PRN (17:15)
[2024-10-14] MEDS ORDERED: haloperidol lactate 5mg/ml inj IM PRN (17:15)
[2024-10-14] MEDS ORDERED: magnesium sulf-water 2g/50mL 50 ML IV PRN (17:15)
[2024-10-14] MEDS ORDERED: diphenhydrAMINE 25mg capsule PO PRN (17:15)
[2024-10-14] MEDS ORDERED: potassium Cl 20 mEq SR tablet PO PRN (17:15)
[2024-10-14] MEDS ORDERED: magnesium sulf-water 4G/100mL 100 ML IV PRN (17:15)
--- NOTE | 2024-10-14 17:43 | RADIOLOGY REPORT ---
CHEST RADIOGRAPH Indication: CP Technique: Single frontal view of the chest was obtained COMPARISON: DI CHEST,SINGLE VIEW on DOS: 07/04/24, CHEST,SINGLE VIEW on DOS: 05/21/19, CHEST,SINGLE VIEW on DOS: 05/21/19 FINDINGS: Lines and Tubes: None Lungs: Clear Pleura: No effusion. No pneumothorax. Cardiomediastinal contours: Unremarkable Bones: Unremarkable IMPRESSION: 1. No acute disease.
[2024-10-14 18:18] LABS: CREATINE KINASE 57 U/L (26-192); PHOSPHORUS 2.7 MG/DL (2.3-4.5)
[2024-10-14 18:22] LABS: PROTHROMBIN TIME 10.7 SECONDS (9.0-12.0)
[2024-10-14 18:26] LABS: APTT 24 SECONDS (22-32)
[2024-10-14 18:47] LABS: PRO BRAIN NATRIURETIC PEPTIDE 32 PG/ML (0-125)
[2024-10-14] MEDS ORDERED: HYDR-3686 PO (19:04)
[2024-10-14] MEDS ORDERED: THIA100T66 PO (19:04)
[2024-10-14] MEDS ORDERED: PANT40SU2 PO (19:04)
[2024-10-14] MEDS ORDERED: TIZA-189 PO (19:04)
[2024-10-14] MEDS ORDERED: FOLI0.4T14 PO (19:04)
[2024-10-14] MEDS ORDERED: PANT-47 PO (19:05)
[2024-10-14] MEDS: K and/or MAG REPLACEMENT MC SCH (20:00)
[2024-10-14] MEDS: heparin, porcine 5000 units/ml vial SQ SCH (20:00)
[2024-10-14] MEDS: docusate sod 100mg capsule PO SCH (20:00)
--- NOTE | 2024-10-14 20:05 | RADIOLOGY REPORT ---
Exam: CT CT ABDOMEN PELVIS History: vomiting Comparison Study: CT CT ABDOMEN PELVIS on DOS: 09/14/23, CT CT ABDOMEN PELVIS on DOS: 02/17/23 TECHNIQUE: Multidetector CT of the abdomen and pelvis was performed from lung bases to pubic symphysi s. Imaging was performed without IV contrast. Axial, coronal, and sagittal multiplanar reformats were obtained from the axial data set by the technologist. RADIATION DOSE: DLP 357.04 mGy.cm; CTDI vol 7.28 mGy. Findings: Limited evaluation given noncontrast technique. Lungs: The lung bases are clear. Heart: No cardiomegaly or pericardial effusion. Liver: Unremarkable. Gallbladder: Possible biliary sludge. Spleen: Unremarkable Pancreas: Multiple calcifications in the pancreatic head and uncinate process, more conspicuous viviana red to 09/14/2023. Adrenals: Unremarkable Kidneys: Unremarkable GI tract: Moderate wall thickening of the proximal stomach. : Unremarkable. Vasculature: Unremarkable Lymphadenopathy: Absent Peritoneum: No ascites Musculoskeletal: Unremarkable Soft tissues: Unremarkable Impression: 1. Limited evaluation given noncontrast technique. 2. No definite acute abdominopelvic abnormalities. 3. Moderate wall thickening of the proximal small stomach. Correlate for gastritis. Consider endosc opy for further evaluation as clinically indicated. 4. Sequela of chronic pancreatitis.
[2024-10-14] MEDS ORDERED: temazepam 15mg capsule PO PRN (21:00)
[2024-10-14] MEDS: thiamine 100mg/ml 2ml inj. IV SCH (21:04)
[2024-10-14 22:00] VITALS: BP 113/82; PULSE 93; RESP 22; TEMP 97.3; O2SAT 97
[2024-10-15] VITALS (7 sets, daily range): BP systolic 120–145; BP diastolic 79–90; PULSE 68–97; RESP 14–22; TEMP 96.6–98.8; O2SAT 97–100
[2024-10-15] MEDS: LORazepam 2 mg/ml vial IV PRN (03:41)
[2024-10-15 06:03] LABS: BASOPHILS % (AUTO) 0.5 % (0-1); EOSINOPHILS # (AUTO) 0.1 X10'3 (0-0.9); EOSINOPHILS % (AUTO) 0.7 % (0-6); HEMOGLOBIN 12.2 g/dl (12.0-16.0); LYMPHOCYTES # (AUTO) 1.9 X10'3 (1.1-4.8); LYMPHOCYTES % (AUTO) 20.9 % (21-51); MEAN CORPUSCULAR HEMOGLOBIN 34.6 PG (27.0-31.0); MEAN CORPUSCULAR HGB CONC 33.8 g/dL (33.0-36.5); MEAN CORPUSCULAR VOLUME 102.1 FL (78-98); MEAN PLATELET VOLUME 8.8 FL (7.4-10.4); MONOCYTES # (AUTO) 0.5 X10'3 (0-0.9); MONOCYTES % (AUTO) 5.7 % (2-12); NEUTROPHILS # (AUTO) 6.7 X10'3 (1.8-7.7); NEUTROPHILS % (AUTO) 72.2 % (42-75); PLATELET COUNT 167 X10'3 (140-440); RED BLOOD COUNT 3.52 X10'6 (4.20-5.60); RED CELL DISTRIBUTION WIDTH 13.8 % (11.5-14.5); WHITE BLOOD COUNT 9.2 X10'3 (4.5-11.0)
[2024-10-15 06:08] LABS: ALANINE AMINOTRANSFERASE 14 U/L (12-78); ALBUMIN 3.5 G/DL (3.4-5.0); ALBUMIN/GLOBULIN RATIO 1.1 (1.1-1.5); ALKALINE PHOSPHATASE 92 IU/L (46-116); ANION GAP 8 (8-16); ASPARTATE AMINO TRANSFERASE 30 U/L (10-37); BILIRUBIN,TOTAL 1.1 MG/DL (0.1-1.0); BLOOD UREA NITROGEN 3 MG/DL (7-18); BUN/CREATININE RATIO 5.6 (10.0-20.0); CALCIUM 7.8 MG/DL (8.5-10.1); CHLORIDE 105 MMOL/L (99-107); CREATININE 0.54 MG/DL (0.40-0.90); GLUCOSE 123 MG/DL (70-104); MAGNESIUM 1.7 MG/DL (1.5-2.4); POTASSIUM 3.3 MMOL/L (3.5-5.1); SODIUM 137 MMOL/L (135-145); TOTAL CARBON DIOXIDE 24.4 MMOL/L (24-32); TOTAL PROTEIN 6.7 G/DL (6.4-8.2); eCRCL 103 ML/MIN; eGFR > 90 ML/MIN
[2024-10-15] MEDS: nicotine 14mg patch - 24hr TD SCH (08:01)
[2024-10-15] MEDS: pantoprazole 40mg Tablet.DR PO SCH (08:03)
[2024-10-15] MEDS: potassium Cl 20 mEq SR tablet PO PRN (08:15)
[2024-10-15] MEDS: folic acid 1mg/0.2ml inj IV SCH (13:04)
--- NOTE | 2024-10-15 17:27 | PROGRESS NOTE ---
Daily Progress Note Providers to CC Feels better today, better sleep better appetite ~ Central Line/PICC still needed: No Fournier-Non Protocol Fournier Indications Met/Not Met: F/C Indications Not Met Antibiotic Timeout Antibiotic Ordered?: No MRSA Education MRSA Education Provided to pt: No Subjective As above Objective Vital Signs Date Time Temp Pulse Resp B/P (MAP) Pulse Ox O2 Delivery O2 Flow Rate FiO2 10/15/24 11:00 97 16 134/90 (105) 100 Room Air 10/15/24 08:00 0.0 10/15/24 06:00 97.4 Vital signs, stable ,afebrile. Pulse Oximetry reflects adequate oxygenation. General: well developed, well nourished. Awake , alert, and oriented x4, resting comfortably in the bed, in no acute distress . Skin: Warm, dry, no pallor, no rash or petechiae. HEENT: Atraumatic, normocephalic, EOMI, anicteric sclera B; pink conjunctiva; PERRLA, normal oropharynx, moist oral and nasal mucosa. Tympanic membrane , nose , throat clear. Neck: Trachea midline. Supple, full range of motion, no JVD, bruit , hepatojugular reflex , lymphadenopathy or masses, or other lesions Cardiac: Regular rhythm, regular rate no murmurs, rubs, or gallops. Normal S1 and S2, no S3 noticed. PMI is normal. Respiratory: Equal breath sounds bilaterally, no tachypnea; lungs clear to auscultation bilaterally, no wheezing ,rub or rales, or crackles. Chest wall is symmetric and without deformity. No signs of trauma. Chest wall is nontender. No signs of respiratory distress. Resonance is normal upon percussion bilaterally. Gastrointestinal: Abdomen symmetric, non-distended, soft, non-tender, normal bowel sounds x4 quadrant, normoactive, no hepatosplenomegaly , no masses , no bruit, no flank pain bilaterally. No voluntary guarding, rebound, or rigidity. No tenderness to percussion. No pulsatile masses. Equal femoral pulses. No Rey's sign or McBurney point tenderness. Back; no CVA tenderness bilaterally, no deformities. Neck and back are without deformity as well. No tenderness noted on palpation of the spinous processes. Spinous processes are midline. Cervical, thoracic, and lumbar paraspinal muscles are not tender and are without spasm. Musculoskeletal: Extremities, normal range of motion, non-tender, muscle strength 5/5 x 4. Negative Homans signs bilaterally on lower extremity. Distal pulses full symmetrical, no clubbing, cyanosis , edema. Neurological: Speech is clear, alert, and oriented x 4. No motor or sensory deficit, deep tendon reflexes normal, cerebellar intact. Cranial nerves II-XII intact. Psych: Alert and or appropriate, normal affect. Vascular: Good distal pulses, which are equal x4; capillary refill less than 2 seconds. Lymphatic, no lymphadenopathy. Result Diagram: 10/15/24 0543 10/15/24 0543 Coagulation Studies Laboratory Tests Test 10/14/24 17:59 Prothrombin Time 10.7 SECONDS (9.0-12.0) INR International Normalized Ratio 1.0 INR Activated Partial Thromboplast Time 24 SECONDS (22-32) Coagulation Comments Problem\Assessment\Plan Assessment Chronic alcohol, tobacco abuse including currently on ongoing Acute alcohol intoxication Alcohol withdrawal syndrome Alcoholic ketoacidosis Dehydration associated with Ketonuria Hypertension Hypokalemia Uncontrolled additional comorbidities, history of pyelonephritis, pancreatitis x3, and GI bleeding seizure anemia Plan IV fluids, banana bag, Additional lab work pending Alcohol withdrawal protocol Substance abuse navigator consult Replace electrolytes Reconciled home medications DVT gastropathy prophylaxis addressed Sepsis Screening Reassessment Date: Oct 15, 2024 Date of Service: Oct 15, 2024 Billing Provider: JOSE RAMON MARQUEZ MD Common Visit Codes: 91842-ZIZ/OBS SAME DATE (HIGH) JOSE RAMON MARQUEZ MD Oct 15, 2024 17:27
[2024-10-15] MEDS: acetaminophen 325mg tablet PO PRN (19:55)
[2024-10-16] VITALS (7 sets, daily range): BP systolic 93–129; BP diastolic 53–94; PULSE 79–104; RESP 13–24; TEMP 97.1–98.8; O2SAT 97–100
[2024-10-16 06:45] LABS: BASOPHILS % (AUTO) 0.6 % (0-1); EOSINOPHILS # (AUTO) 0.1 X10'3 (0-0.9); EOSINOPHILS % (AUTO) 1.1 % (0-6); HEMATOCRIT 35.9 % (35.0-45.0); HEMOGLOBIN 12.1 g/dl (12.0-16.0); LYMPHOCYTES # (AUTO) 1.6 X10'3 (1.1-4.8); LYMPHOCYTES % (AUTO) 23.9 % (21-51); MEAN CORPUSCULAR HEMOGLOBIN 34.4 PG (27.0-31.0); MEAN CORPUSCULAR HGB CONC 33.7 g/dL (33.0-36.5); MEAN CORPUSCULAR VOLUME 102.1 FL (78-98); MEAN PLATELET VOLUME 9.8 FL (7.4-10.4); MONOCYTES # (AUTO) 0.3 X10'3 (0-0.9); MONOCYTES % (AUTO) 4.9 % (2-12); NEUTROPHILS # (AUTO) 4.6 X10'3 (1.8-7.7); NEUTROPHILS % (AUTO) 69.5 % (42-75); PLATELET COUNT 146 X10'3 (140-440); RED BLOOD COUNT 3.51 X10'6 (4.20-5.60); RED CELL DISTRIBUTION WIDTH 13.9 % (11.5-14.5); WHITE BLOOD COUNT 6.7 X10'3 (4.5-11.0)
[2024-10-16 06:53] LABS: ALANINE AMINOTRANSFERASE 17 U/L (12-78); ALBUMIN 3.2 G/DL (3.4-5.0); ALKALINE PHOSPHATASE 79 IU/L (46-116); ANION GAP 6 (8-16); ASPARTATE AMINO TRANSFERASE 24 U/L (10-37); BILIRUBIN,TOTAL 0.5 MG/DL (0.1-1.0); BLOOD UREA NITROGEN 2 MG/DL (7-18); BUN/CREATININE RATIO 3.8 (10.0-20.0); CALCIUM 8.2 MG/DL (8.5-10.1); CHLORIDE 105 MMOL/L (99-107); CREATININE 0.52 MG/DL (0.40-0.90); GLUCOSE 133 MG/DL (70-104); MAGNESIUM 1.6 MG/DL (1.5-2.4); POTASSIUM 3.7 MMOL/L (3.5-5.1); SODIUM 137 MMOL/L (135-145); TOTAL CARBON DIOXIDE 26.4 MMOL/L (24-32); TOTAL PROTEIN 6.3 G/DL (6.4-8.2); eCRCL 107 ML/MIN; eGFR > 90 ML/MIN
--- NOTE | 2024-10-16 16:08 | PROGRESS NOTE ---
Daily Progress Note Providers to CC Feels weak, deconditioned, somnolent ~ Central Line/PICC still needed: No Fournier-Non Protocol Fournier Indications Met/Not Met: F/C Indications Not Met Antibiotic Timeout Antibiotic Ordered?: Yes MRSA Education MRSA Education Provided to pt: Yes Subjective As above Objective Vital Signs Date Time Temp Pulse Resp B/P (MAP) Pulse Ox O2 Delivery O2 Flow Rate FiO2 10/16/24 11:08 97.3 96 18 124/89 (101) 100 Room Air 10/16/24 08:00 0.0 21 Vital signs, stable ,afebrile. Pulse Oximetry reflects adequate oxygenation. General: well developed, well nourished. Awake , alert, and oriented x4, resting comfortably in the bed, in no acute distress . Skin: Warm, dry, no pallor, no rash or petechiae. HEENT: Atraumatic, normocephalic, EOMI, anicteric sclera B; pink conjunctiva; PERRLA, normal oropharynx, moist oral and nasal mucosa. Tympanic membrane , nose , throat clear. Neck: Trachea midline. Supple, full range of motion, no JVD, bruit , hepatojugular reflex , lymphadenopathy or masses, or other lesions Cardiac: Regular rhythm, regular rate no murmurs, rubs, or gallops. Normal S1 and S2, no S3 noticed. PMI is normal. Respiratory: Equal breath sounds bilaterally, no tachypnea; lungs clear to auscultation bilaterally, no wheezing ,rub or rales, or crackles. Chest wall is symmetric and without deformity. No signs of trauma. Chest wall is nontender. No signs of respiratory distress. Resonance is normal upon percussion bilaterally. Gastrointestinal: Abdomen symmetric, non-distended, soft, non-tender, normal bowel sounds x4 quadrant, normoactive, no hepatosplenomegaly , no masses , no bruit, no flank pain bilaterally. No voluntary guarding, rebound, or rigidity. No tenderness to percussion. No pulsatile masses. Equal femoral pulses. No Rey's sign or McBurney point tenderness. Back; no CVA tenderness bilaterally, no deformities. Neck and back are without deformity as well. No tenderness noted on palpation of the spinous processes. Spinous processes are midline. Cervical, thoracic, and lumbar paraspinal muscles are not tender and are without spasm. : normal external genitalia, without lesions, swelling, masses or tenderness. Musculoskeletal: Extremities, normal range of motion, non-tender, muscle strength 5/5 x 4. Negative Homans signs bilaterally on lower extremity. Distal pulses full symmetrical, no clubbing, cyanosis , edema. Neurological: Speech is clear, alert, and oriented x 4. No motor or sensory deficit, deep tendon reflexes normal, cerebellar intact. Cranial nerves II-XII intact. Psych: Alert and or appropriate, normal affect. Vascular: Good distal pulses, which are equal x4; capillary refill less than 2 seconds. Lymphatic, no lymphadenopathy. Result Diagram: 10/16/2419 10/16/24618 Coagulation Studies Laboratory Tests Test 10/14/24 17:59 Prothrombin Time 10.7 SECONDS (9.0-12.0) INR International Normalized Ratio 1.0 INR Activated Partial Thromboplast Time 24 SECONDS (22-32) Coagulation Comments Problem\Assessment\Plan Assessment Chronic alcohol, tobacco abuse including currently on ongoing Generalized weakness secondary to deconditioning Acute alcohol intoxication Alcohol withdrawal syndrome Alcoholic ketoacidosis Dehydration associated with Ketonuria Hypertension Hypokalemia Uncontrolled additional comorbidities, history of pyelonephritis, pancreatitis x3, and GI bleeding seizure anemia Plan IV fluids, banana bag, Additional lab work pending Alcohol withdrawal protocol Substance abuse navigator consult Replace electrolytes PT evaluation and treatment Reconciled home medications DVT gastropathy prophylaxis addressed Sepsis Screening Reassessment Date: Oct 16, 2024 Date of Service: Oct 16, 2024 Billing Provider: JOSE RAMON MARQUEZ MD Common Visit Codes: [id number] INP/OBS CARE(HIGH) JOSE RAMON MARQUEZ MD Oct 16, 2024 16:08
[2024-10-17 02:00] VITALS: BP 122/85; PULSE 82; RESP 18; TEMP 97.9; O2SAT 95
[2024-10-17 07:00] VITALS: BP 128/84; PULSE 84; RESP 19; TEMP 97.5; O2SAT 98
[2024-10-17 08:26] LABS: ALANINE AMINOTRANSFERASE 15 U/L (12-78); ALBUMIN 3.6 G/DL (3.4-5.0); ALBUMIN/GLOBULIN RATIO 1.1 (1.1-1.5); ALKALINE PHOSPHATASE 88 IU/L (46-116); ANION GAP 9 (8-16); ASPARTATE AMINO TRANSFERASE 28 U/L (10-37); BILIRUBIN,TOTAL 0.6 MG/DL (0.1-1.0); BLOOD UREA NITROGEN 3 MG/DL (7-18); BUN/CREATININE RATIO 5.8 (10.0-20.0); CHLORIDE 104 MMOL/L (99-107); CREATININE 0.52 MG/DL (0.40-0.90); GLUCOSE 93 MG/DL (70-104); HEMATOCRIT 40.6 % (35.0-45.0); HEMOGLOBIN 13.7 g/dl (12.0-16.0); MEAN CORPUSCULAR HGB CONC 33.8 g/dL (33.0-36.5); MONOCYTES # (AUTO) 0.4 X10'3 (0-0.9); POTASSIUM 3.9 MMOL/L (3.5-5.1); SODIUM 137 MMOL/L (135-145); TOTAL CARBON DIOXIDE 23.7 MMOL/L (24-32); eCRCL 107 ML/MIN; eGFR > 90 ML/MIN
[2024-10-17 08:27] LABS: BASOPHILS # (AUTO) 0.1 X10'3 (0-0.2); BASOPHILS % (AUTO) 0.9 % (0-1); EOSINOPHILS # (AUTO) 0.2 X10'3 (0-0.9); EOSINOPHILS % (AUTO) 1.8 % (0-6); LYMPHOCYTES # (AUTO) 1.8 X10'3 (1.1-4.8); MEAN CORPUSCULAR HEMOGLOBIN 34.9 PG (27.0-31.0); MEAN CORPUSCULAR VOLUME 103.5 FL (78-98); MEAN PLATELET VOLUME 10.4 FL (7.4-10.4); MONOCYTES % (AUTO) 4.6 % (2-12); NEUTROPHILS # (AUTO) 6.3 X10'3 (1.8-7.7); NEUTROPHILS % (AUTO) 71.7 % (42-75); PLATELET COUNT 54 X10'3 (140-440); RED BLOOD COUNT 3.92 X10'6 (4.20-5.60); RED CELL DISTRIBUTION WIDTH 13.4 % (11.5-14.5); WHITE BLOOD COUNT 8.7 X10'3 (4.5-11.0)
[2024-10-17 09:17] VITALS: RESP 16
[2024-10-17 10:00] VITALS: BP 132/91; PULSE 110; RESP 12; TEMP 97.2; O2SAT 99
--- NOTE | 2024-10-17 15:53 | DISCHARGE SUMMARY ---
Discharge Summary Providers to CC ~ no new complaint today feeling better, asking to be discharged home Discharge Summary Assessment Chronic alcohol, tobacco abuse including currently on ongoing Acute alcohol intoxication Alcohol withdrawal syndrome Alcoholic ketoacidosis Dehydration associated with Ketonuria Hypertension Uncontrolled additional comorbidities, history of pyelonephritis, pancreatitis x3, and GI bleeding seizure anemia Admission Diagnosis: Alcohol withdrawal syndrome Admission Diagnosis Comment: Chronic alcohol, tobacco abuse including currently on ongoing Acute alcohol intoxication Alcohol withdrawal syndrome Alcoholic ketoacidosis Dehydration associated with Ketonuria Hypertension Uncontrolled additional comorbidities, history of pyelonephritis, pancreatitis x3, and GI bleeding seizure anemia Hospital Course DATE OF ADMISSION: October 14, 2024 DATE OF DISCHARGE: October 17, 2024 Discharge Diagnosis\Comment: Chronic alcohol, tobacco abuse including currently on ongoing Acute alcohol intoxication Alcohol withdrawal syndrome Alcoholic ketoacidosis Dehydration associated with Ketonuria Hypertension Uncontrolled additional comorbidities, history of pyelonephritis, pancreatitis x3, and GI bleeding seizure anemia Operations\Procedures: Non Consultants: Non Complications: Non Condition on DC: Stable Discharge Summary: This is a 34-year-old female, history of chronic alcohol and tobacco abuse, including ongoing and currently, history of hypertension, pyelonephritis, pancreatitis x3, history of GI bleeding seizure anemia presented today to emergency department chief complaint nausea vomiting associated with abdominal pain and tremor of upper extremity hands, in addition this is the patient who presents with nausea and vomiting The patient tells me that she started to feel ill this morning, felt okay yesterday. She reports having generalized abdominal pain, nausea and vomiting. She was not able to keep down any food or fluids today. No alcohol today. No fevers or chills. No dysuria. No significant diarrhea. She does report a history of alcohol withdrawal in the past. She tells me she drinks about a large bottle of hard alcohol daily. Last drink was last night No other acute concerns. In emergency department she was evaluated by physician was diagnosed with alcohol withdrawal syndrome acute alcohol intoxication alcoholic ketoacidosis, and decision was made to admit patient for further evaluation and treatment. No additional complaint or concern. To admission patient was extensively evaluated treated, today she is feeling fine asking to be discharged home, she will be discharged in stable condition, medication reconciled, follow-up PCP in the morning, today on physical exam Vital signs, stable ,afebrile. Pulse Oximetry reflects adequate oxygenation. General: well developed, well nourished. Awake , alert, and oriented x4, resting comfortably in the bed, in no acute distress . Skin: Warm, dry, no pallor, no rash or petechiae. HEENT: Atraumatic, normocephalic, EOMI, anicteric sclera B; pink conjunctiva; PERRLA, normal oropharynx, moist oral and nasal mucosa. Tympanic membrane , nose , throat clear. Neck: Trachea midline. Supple, full range of motion, no JVD, bruit , hepatojugular reflex , lymphadenopathy or masses, or other lesions Cardiac: Regular rhythm, regular rate no murmurs, rubs, or gallops. Normal S1 and S2, no S3 noticed. PMI is normal. Respiratory: Equal breath sounds bilaterally, no tachypnea; lungs clear to auscultation bilaterally, no wheezing ,rub or rales, or crackles. Chest wall is symmetric and without deformity. No signs of trauma. Chest wall is nontender. No signs of respiratory distress. Resonance is normal upon percussion bilaterally. Gastrointestinal: Abdomen symmetric, non-distended, soft, non-tender, normal bowel sounds x4 quadrant, normoactive, no hepatosplenomegaly , no masses , no bruit, no flank pain bilaterally. No voluntary guarding, rebound, or rigidity. No tenderness to percussion. No pulsatile masses. Equal femoral pulses. No Rey's sign or McBurney point tenderness. Back; no CVA tenderness bilaterally, no deformities. Neck and back are without deformity as well. No tenderness noted on palpation of the spinous processes. Spinous processes are midline. Cervical, thoracic, and lumbar paraspinal muscles are not tender and are without spasm. Musculoskeletal: Extremities, normal range of motion, non-tender, muscle strength 5/5 x 4. Negative Homans signs bilaterally on lower extremity. Distal pulses full symmetrical, no clubbing, cyanosis , edema. Neurological: Speech is clear, alert, and oriented x 4. No motor or sensory deficit, deep tendon reflexes normal, cerebellar intact. Cranial nerves II-XII intact. Psych: Alert and or appropriate, normal affect. Vascular: Good distal pulses, which are equal x4; capillary refill less than 2 seconds. Lymphatic, no lymphadenopathy. *Problems/Diagnosis: (1) Alcoholic intoxication Status: Acute (2) Alcohol withdrawal syndrome Status: Acute (3) Alcoholic ketoacidosis Status: Acute (4) Alcoholism (5) Alcoholism with alcohol dependence Total Time Spent on D/C: > 30 Minutes Date of Service: Oct 17, 2024 Billing Provider: JOSE RAMON MARQUEZ MD Common Visit Codes: [id number]/OBS DISCH DAY >30min JOSE RAMON MARQUEZ MD Oct 17, 2024 15:53
[2024-10-18] MEDS ORDERED: folic acid 1mg tablet PO SCH (08:00)
[2024-10-18] MEDS ORDERED: thiamine 100mg tablet PO SCH (08:00)
== END 2024-10-17 12:24 | disposition home or self-care (01) | DRG 422 ==
LOC: ER 13:00 → ED HOLD 17:19 → PCU 3S 21:50
PROVIDERS: ADMIT Family Medicine; ATTEND Family Medicine
DX: E86.0 Dehydration (principal); E87.29 Other acidosis; E87.6 Hypokalemia; I10 Essential (primary) hypertension; F10.239 Alcohol dependence with withdrawal, unspecified; F10.229 Alcohol dependence with intoxication, unspecified; I25.10 Atherosclerotic heart disease of native coronary artery without angina pectoris; Z88.5 Allergy status to narcotic agent; Z79.899 Other long term (current) drug therapy
CPT/HCPCS: 36415; 71045; 74176; 80053; 80320; 82550; 82948; 83690; 83735; 83880; 84100; 84702; 85025; 85610; 85730; 87081; 93005; 96361; 96374; 96375; 97161; 97530; 99285; A6258; G0378; J1644; J2060; J2405; J3411; J3490; J7030; J7042

== ENCOUNTER 2025-01-08 16:41 | Inpatient (IN) | payer MEDICAID ==
[~2025-01-08] VITALS: Ht 152.4 cm; Wt 52.9 kg
[~2025-01-08 16:41] MED LIST changes: +FOLI0.4T3 PO; -FOLI1TAB27 PO; +HYDR-3686 PO; -LOSA25TA41 PO; -MULT-25 PO; -NALT50TA5 PO; -NOR5T PO; -ONDA-243 PO; -ONDA-245 PO; +PANT-47 PO; -PANT40TA54 PO; +THIA100T66 PO; -THIA100T70 PO; -THIA50TA10 PO; +TIZA-189 PO
--- NOTE | 2025-01-08 16:53 | Physician Documentation ---
History of Present Illness ~ Chief Complaint: ETOH Withdrawl Stated Complaint: WITHDRAWAL Time Seen by MD: 16:46 Primary Medical Doctor: EVANGELISTA Clement Source: EMS (Hx per ) HPI Patient was brought in for evaluation of possible seizure activity, has history of seizures. Per her , the patient had been showing some seizure activity earlier today and so he called paramedics to evaluate her. When they picked her up the patient was awake with a GCS of about 14, and appeared to have normal mental status. On the way to the hospital, the patient had two seizures, and arrives in a postictal state. She has a history of alcoholism, reportedly the last alcohol she had was 24 hours ago per her . A review of her external medication history shows many prescribed meds, but I do not see any clear anticonvulsant therapy. There is no suspected serious drug use, per . Medication Reconciliation Allergies: Coded Allergies: No Known Drug Allergies (Verified Allergy, Unknown, 08/28/24) codeine (Unverified Adverse Reaction, Intermediate, N/V, 08/28/24) Scheduled Folic Acid (FOLIC ACID tablet), 1 TAB PO DAILY, (Reported) Hydroxyzine Hcl* (Atarax*), 1 TAB PO DAILY, (Reported) Pantoprazole Sodium (PROTONIX tablet), 1 TAB PO DAILY, (Reported) Thiamine Hcl (Vitamine B-1), 1 TAB PO DAILY, (Reported) Tizanidine Hcl (Zanaflex), 1 TAB PO DAILY, (Reported) Past Medical History Past Medical History: Seizures, Gastritis, Pancreatitis Past Surgical History: no surgical history Patient History: (CAD) Coronary arteriosclerosis FATHER, Onset:Unknown FH: bipolar disorder MOTHER, Onset:Unknown FH: cancer MOTHER, Onset:Unknown FH: hypertension FATHER, Onset:Unknown Smoking Status: Current every day smoker Alcohol Use: Alcoholic Drug Use: marijuana Lives with: Family Lives In: Home Occupation: unemployed Review of Systems All Other Systems at this time: Reviewed and Negative Physical Exam Vital Signs: Heart Rate: 66, Respiratory Rate: 18, BP: 139/84, Pulse Oximetry: 98, Weight: 52.900 Oxygen Flow Rate: 0 Physical Exam General: Pt with deviated gaze to right on arrival but soon was able to make eye contact briefly. Remains postictal and nonverbal at this time. Head: Normocephalic and atraumatic. Eyes: Conjunctiva normal. Pupils equal and reactive. ENT: Mucous membranes moist. Neck: Supple. Chest: Clear to auscultation bilaterally, without rales, rhonchi, or wheezes. There is no accessory muscle use or retractions. Cardiac: Regular rate and rhythm without murmurs, gallops or rubs. Palpation of the chest wall is normal. Abd: Soft, nondistended, nontender, with normoactive bowel sounds. No guarding or rebound. Extremities: Within normal limits without cyanosis, clubbing, or edema. Skin: Sparks, warm and dry with no significant rash appreciated. Neuro: Cranial nerves II-XII grossly intact. No facial asymmetry. Progress Results/Orders Results/Orders Orders - WOO URIAS MD Cbc/Diff (01/08/25 16:47) Drug Screen, Urine (01/08/25 16:47) Monitor (01/08/25 16:47) Saline Lock (01/08/25 16:47) Nothing By Mouth (01/09/25 Breakfast) * (B) Fournier- Non Protocol * Q12H@07,19 (01/08/25 16:47) Levetiracetam-Nacl 500mg/100ml (Levetira (01/08/25 17:05) Acetaminophen (01/08/25 17:13) BMP (01/08/25 17:13) Ethanol (01/08/25 17:13) Phenytoin (01/08/25 17:13) Valproate (01/08/25 17:13) Ammonia (01/08/25 17:13) Completed Orders - WOO URIAS MD Normal Saline 1000ml (0.9% Sodium Chlori (01/08/25 16:50) Lorazepam Inj (Ativan Inj) (01/08/25 16:50) Medications Received in ER Medications (Trade) Dose Ordered Sig/Stefanie Route PRN Reason Start Time Stop Time Status Last Admin Dose Admin (0.9% sodium chloride (NS) 1000ml IV soln) 1,000 ml ONCE ONCE IVB 01/08/25 16:50 01/08/25 16:54 DC 01/08/25 17:09 1,000 ML Levetiracetam 100 ml @ 400 mls/hr Q12H IV 01/08/25 17:05 01/08/25 17:09 400 MLS/HR (Ativan inj) 1 mg ONCE ONCE IV 01/08/25 16:50 01/08/25 16:53 DC 01/08/25 17:00 1 MG Vital Signs 01/08/25 01/08/25 01/08/25 16:42 16:46 17:00 Pulse 66 Resp 18 22 12 B/P (MAP) 139/84 Pulse Ox 98 O2 Flow Rate 0 Laboratory Tests Test 01/08/25 16:48 01/08/25 17:09 CBC Comment Chemistry Comments Re-Evaluation Re-Evaluation : Re-Evaluation Time: 17:18 Progress Pt's post-ictal state had improved to the point that she was able to nod yes/no appropriately to questions, but then had another brief seizure. Ativan had been administered but not yet the Keppra, which is being infused now. Pt no longer seizing and is post-ictal. CT ordered, as multiple seizures with status is not typical of alcohol withdrawal. Departure Referrals: NO PRIMARY CARE PROVIDER (PCP) WOO URIAS MD Jan 08, 2025 16:53
[2025-01-08] MEDS: normal saline 1000ML IV soln IVB ONE (17:09)
[2025-01-08] MEDS: Levetiracetam-NACL 500mg/100ml 100 ML IV SCH (17:09)
[2025-01-08 17:57] LABS: URINE AMPHETAMINE SCREEN NEGATIVE (Neg); URINE BARBITUATE SCREEN NEGATIVE (Neg); URINE BENZODIAZEPINES SCREEN NEGATIVE (Neg); URINE CANNABINOID SCREEN POSITIVE (Neg); URINE COCAINE SCREEN NEGATIVE (Neg); URINE METHADONE SCREEN NEGATIVE (Neg); URINE OPIATE SCREEN NEGATIVE (Neg); URINE PHENCYCLIDINE SCREEN NEGATIVE (Neg)
--- NOTE | 2025-01-08 18:21 | RADIOLOGY REPORT ---
CT CT HEAD Indication: status epil. EXAM DATE: 01/08/2025 05:49 PM COMPARISON: None TECHNIQUE: CT of the head without intravenous contrast. RADIATION DOSE: CTDIvol: 63 mGy, DLP: 1057 mGy*cm FINDINGS: There is no intracranial hemorrhage. There is no extra-axial fluid, mass, mass effect or midline shift. The ventricles are midline and normal in size. Basilar cisterns are patent. Barrientos-white differentiation is maintained. The paranasal sinuses and mastoids are well-pneumatized. Imaged portion of the orbits are unremarkable. IMPRESSION: No intracranial hemorrhage or mass effect.
[2025-01-08 18:52] LABS: CREATININE 0.56 MG/DL (0.40-0.90); ETHANOL < 10 MG/DL (<10); TOTAL CARBON DIOXIDE 18.7 MMOL/L (24-32); VALPROATE 3 UG/ML (50-100); eCRCL 101 ML/MIN; eGFR > 90 ML/MIN
[2025-01-08 20:04] LABS: MEAN PLATELET VOLUME 9.2 FL (7.4-10.4); RED CELL DISTRIBUTION WIDTH 13.4 % (11.5-14.5)
[2025-01-08] MEDS ORDERED: magnesium sulf-water 4G/100mL 100 ML IV PRN (20:25)
[2025-01-08] MEDS ORDERED: HYDROmorphone/PF 0.2 MG/ML SYRINGE IV PRN (20:25)
[2025-01-08] MEDS ORDERED: potassium Cl 20 mEq SR tablet PO PRN ×2 (20:25)
[2025-01-08] MEDS ORDERED: magnesium hydroxide 30ml (MOM) UD suspension PO PRN (20:25)
[2025-01-08] MEDS ORDERED: magnesium sulf-water 2g/50mL 50 ML IV PRN (20:25)
[2025-01-08] MEDS ORDERED: magnesium Cl slow-release 64mg tablet PO PRN (20:25)
[2025-01-08] MEDS ORDERED: potassium Cl 40MEQ/1/2NS 520ml 520 ML IV PRN (20:25)
--- NOTE | 2025-01-08 20:54 | HISTORY AND PHYSICAL-Residence ---
History & Physical Providers to Resident Creating Document: JOSE MIGUEL ORTEGA, RES ~ History of Present Illness Primary Medical Doctor: EVANGELISTA Clement Reason for Admit\Complaint: Alcohol with drawl History of Present Illness 34 years old female with past medical history of Alcohol Use disorder, alcohol withdrawal, depression and anxiety presents to ED with Seizures which is generalised tonic and clonic witnessed by her , patient had her last drink day before yesterday and she tried to get off alcohol for several time. Today patient had 3 episode of seizures , 2 at home and one in the ambulance. and patient was given one dose of ativan in the ED.which is associated with Severe nausea and vomiting, tremors in her bilateral upper extremities at rest, sweating,tingling sensation in her extremities and patient also experienced flashing of light and listening abnormal sounds Patient Previously admitted for Alcohol with drawl in [facility] an year ago She denies any head injury, no recent change in medications, no history of epilepsy Allergies: Coded Allergies: No Known Drug Allergies (Verified Allergy, Unknown, 08/28/24) codeine (Unverified Adverse Reaction, Intermediate, N/V, 08/28/24) Home Medications Home Medications Active Reported PROTONIX tablet (Pantoprazole Sodium) 40 Mg Tablet.dr 1 Tab PO DAILY 30 Days Vitamine B-1 (Thiamine Hcl) 100 Mg Tablet 1 Tab PO DAILY Atarax* (Hydroxyzine HCl) 25 Mg Tablet 1 Tab PO DAILY FOLIC ACID tablet (Folic Acid) 0.4 Mg Tablet 1 Tab PO DAILY Zanaflex (Tizanidine HCl) 2 Mg Tablet 1 Tab PO DAILY Past Medical History Past Medical History Alcohol use disorder Alcohol with drawl Anxiety Pancreatitis Insomnia Past Surgical History Surgical History Comment No Past surgical history Family History Family History: (CAD) Coronary arteriosclerosis FATHER, Onset:Unknown FH: bipolar disorder MOTHER, Onset:Unknown FH: cancer MOTHER, Onset:Unknown FH: hypertension FATHER, Onset:Unknown Past Social History Social History Comment Patient is currently unemployed, live in her home with spouse Her PCP is ([facility]) she is not driving recently She smokes half a pack of cigarette for 5 years She smokes marijuana She drinks half bottle of vodka daily from past 10 days She is not a drug user Smoking: Less than 1 pack/day Alcohol Use: Alcoholic Drug Use: Marijuana Lives with: Family Lives In: Home Occupation: unemployed ROS All Other Systems: Reviewed and Negative ROS Constitutional: No fever, chills, dizziness, reported weakness, Eyes: pupils are dilated ,No pain, erythema, discharge, blurring of vision ENT: No sore throat, epistaxis, tinnitus, Patient reports profuse sweating Cardiovascular: No chest pain, No current palpitations, syncope, lower extremity edema, paroxysmal nocturnal dyspnea Respiratory: No shortness of breath , No cough, hemoptysis Gastrointestinal: patient reports nausea and vomiting No decrease appetite,diarrhea and abdominal pain. Genitourinary: No frequency,urgency,No nocturia, hematuria or dysuria Musculoskeletal: Patient reports bilateral upper extremity tremors at rest Integumentary: No change in skin, hair, nails. No swelling, bruising, abrasions Neurologic: patient didnot report any symptoms Psychiatric: No delusions, loss of interest in normal activity or change in sleep pattern, hallucinations, suicidal ideations Hematological: No bleeding, petechiae, noted some bruises on left hand Allergies: No asthma or urticaria Skin: warm and dry Exam Vitals: Vital Signs Date Time Temp Pulse Resp B/P (MAP) Pulse Ox O2 Delivery O2 Flow Rate FiO2 01/08/25 19:30 98 18 129/88 (102) 100 0 General: Patient is alert , oriented , answering questions HEENT: noted profuse sweating from forehead and back of head , Normocephalic and atraumatic, Oral mucosa is dry . No visible head injuries Neck: Trachea is in midline. No masses or JVD Chest: Normal air movement bilaterally , Bilateral normal breath sounds. No crackles, rhonchi or wheezes Cardiovascular: Regular rate and regular rhythm. S1-S2 normal. No rubs or murmurs Abdomen: No tenderness present. Non distented ,Normoactive bowel sounds Extremities: patient presents with bilateral upper extremities tremor at rest, No cyanosis, clubbing or edema MFT: Patient is alert , awake, speech is clear CN II-XII - intact Normal Tone and Bulk in all extremities Sensation is intact in all extremities Bilateral Upper extremity tremors are notes Skin: warn and dry Diagnostic Data Last Recorded Lab Results: 01/08/25 1942 01/08/25 1820 Advance Care Planning Advanced Care plannin - 30 Minutes Additional Plan 34 years old female with history of alcohol use disorder, depression, anxiety is currently evaluated for Alcohol with drawl seizures Severe Alcohol withdrawl Symptoms : CIWA score 22 Autonomic symptoms : patient presents with Tremors of hand at rest, severe Nausea/vomiting, 3 episodes of seizures most likley secondary to alcohol withdrawl CT head shows no acute intra-cranial abnormality Utox Plan: Alcohol withdrawl protocol in place: Diazeplam q15 prn and librium 25mg Po Q6h as scheduled Continue Thiamine, folic acid and multivitamin Fall precautions in place health social work professor consult requested Non-anion gap metabolic acidosis Bicarb-18.3, anion gap-16 Most likely due to vomiting Plan IV hydration-Ringer's lactate: 100 mL/hour Monitor CMP daily Anxiety/Depression Home medications include venlafaxine and trazodone Code status: Full code DVT prophylax: Lovenox Jose Miguel Ortega PGY1-Internal Medicine Resident Date of Service: Jan 08, 2025 Billing Provider: LISS RUSSELL MD, SATISH, RES Jan 08, 2025 20:54
[2025-01-08] MEDS: nicotine 21mg patch - 24 hr TD SCH (21:02)
[2025-01-08] MEDS ORDERED: NALT50TA5 PO (21:07)
[2025-01-08] MEDS: ringers solution, lacted 1,000 ML IV SCH (21:56)
[2025-01-08 23:30] VITALS: BP 123/84; PULSE 83; RESP 19; TEMP 99.1; O2SAT 100
[2025-01-09] VITALS (7 sets, daily range): BP systolic 111–132; BP diastolic 69–86; PULSE 63–89; RESP 14–20; TEMP 97.2–98.2; O2SAT 79–100
[2025-01-09] MEDS: diazepam inj 5 MG/ML inj. IV PRN (00:23)
--- NOTE | 2025-01-09 05:58 | ELECTROCARDIOGRAPH REPORT ---
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 Armando Frey Measurements Intervals [place] Rate: 65 P: 63 MO: 109 QRS: 80 QRSD: 85 T: 62 QT: 421 QTc: 438 Interpretive Statements Atrial-paced complexes Electronically Signed On 01-13-2025 19:23:[address] Armando Frey Please click the below link to view image of tracing.
[2025-01-09 07:57] LABS: MEAN PLATELET VOLUME 9.4 FL (7.4-10.4); RED CELL DISTRIBUTION WIDTH 13.9 % (11.5-14.5)
[2025-01-09] MEDS: K and/or MAG REPLACEMENT MC SCH (08:00)
[2025-01-09 08:10] LABS: INR 1.0 INR
[2025-01-09 08:18] LABS: CREATININE 0.72 MG/DL (0.40-0.90); TOTAL CARBON DIOXIDE 26.0 MMOL/L (24-32); eCRCL 78 ML/MIN; eGFR > 90 ML/MIN
[2025-01-09] MEDS: multivitamins, therapeutics tablet PO SCH (08:41)
[2025-01-09] MEDS: docusate sod 100mg capsule PO SCH (08:41)
--- NOTE | 2025-01-09 17:38 | PROGRESS NOTE ---
Daily Progress Note Providers to CC ~ Antibiotic Timeout Antibiotic Ordered?: No Subjective Patient was seen in her room she was having her regular diet. Denied any nausea vomiting but off and on gets pain over left upper abdomen. Patient has history of chronic pancreatitis. . Objective Vital Signs Date Time Temp Pulse Resp B/P (MAP) Pulse Ox O2 Delivery O2 Flow Rate FiO2 01/09/25 16:30 18 01/09/25 15:23 98.2 89 126/81 (96) 100 Room Air 01/09/25 09:16 0.0 Result Diagram: 01/09/25 0737 01/09/25 0737 General: Pt is awake, alert, oriented x4 in no acute distress Head: Normocephalic and atraumatic. Eyes: Conjunctiva normal. ENT: Mucous membranes moist. Neck: Supple.no JVD Chest: Clear to auscultation bilaterally, without rales, rhonchi, or wheezes. There is no accessory muscle use or retractions. Cardiac: Regular rate and rhythm without murmurs, Abd: Soft, nondistended, no signs of tenderness present over abdomen on palpation with normoactive bowel sounds. No guarding or rebound. Extremities: no pedal edema. 2+ radial pulses. Skin: no significant rash appreciated. Neuro: altert , awake , oriented . Coagulation Studies Laboratory Tests Test 01/09/25 07:37 Prothrombin Time 10.3 SECONDS (9.0-12.0) INR International Normalized Ratio 1.0 INR Coagulation Comments Problem\Assessment\Plan 34 years old female with history of alcohol use disorder, history of pancreatitis depression, anxiety is currently evaluated for Alcohol with drawl seizures Severe Alcohol withdrawl Symptoms : CIWA score 22 Autonomic symptoms : patient presents with Tremors of hand at rest, severe Nausea/vomiting, 3 episodes of seizures most likley secondary to alcohol withdrawl CT head shows no acute intra-cranial abnormality Utox Plan: Alcohol withdrawl protocol in place: Diazeplam q15 prn and librium 25mg Po Q6h as scheduled Continue Thiamine, folic acid and multivitamin Fall precautions in place medical social worker consult requested h/o Chronic pancreatitis- lipase normal, CT scan abdomen and pelvis done on October 14, 2024 showed Sequela of chronic pancreatitis. Non-anion gap metabolic acidosis Bicarb-18.3, anion gap-16 Most likely due to vomiting Plan IV hydration-Ringer's lactate: 100 mL/hour Monitor CMP daily Anxiety/Depression Home medications include venlafaxine and trazodone Code status: Full code DVT prophylax: Lovenox Patient's current condition is guarded we will continue to follow patient in a.m. Date of Service: Jan 09, 2025 Billing Provider: RADHA LEIVA MD Common Visit Codes: [id number] INP/OBS CARE(HIGH) RADHA LEIVA MD Jan 09, 2025 17:38
[2025-01-09] MEDS: enoxaparin 40mg/0.4ml syringe SQ SCH (20:05)
[2025-01-10 02:00] VITALS: BP 129/88; PULSE 71; RESP 22; TEMP 97.3; O2SAT 100
[2025-01-10 06:00] VITALS: BP 117/78; PULSE 71; RESP 16; TEMP 98.6; O2SAT 100
[2025-01-10 07:15] LABS: INR 1.2 INR
[2025-01-10 08:05] LABS: MEAN PLATELET VOLUME 10.4 FL (7.4-10.4); RED CELL DISTRIBUTION WIDTH 13.9 % (11.5-14.5)
[2025-01-10] MEDS: pantoprazole 40mg Tablet.DR PO SCH (08:38)
[2025-01-10 09:08] LABS: CREATININE 0.38 MG/DL (0.40-0.90); TOTAL CARBON DIOXIDE 23.0 MMOL/L (24-32); eCRCL 148 ML/MIN; eGFR > 90 ML/MIN
[2025-01-10 11:00] VITALS: BP 150/94; PULSE 92; RESP 18; TEMP 98.7; O2SAT 98
[2025-01-10 18:00] VITALS: BP 143/90; PULSE 91; RESP 15; TEMP 97.4; O2SAT 100
--- NOTE | 2025-01-10 18:37 | PROGRESS NOTE ---
Daily Progress Note Providers to CC ~ Antibiotic Timeout Antibiotic Ordered?: No Subjective Was seen in her room she was emotional today. Patient needs physical therapy evaluation in a.m. is able to tolerate regular food well Objective Vital Signs Date Time Temp Pulse Resp B/P (MAP) Pulse Ox O2 Delivery O2 Flow Rate FiO2 01/10/25 13:46 18 01/10/25 11:00 98.7 92 150/94 (112) 98 Room Air 01/09/25 09:16 0.0 Result Diagram: 01/10/25 0723 01/10/25 0723 General: Pt is awake, alert, oriented x4 in no acute distress Head: Normocephalic and atraumatic. Eyes: Conjunctiva normal. ENT: Mucous membranes moist. Neck: Supple.no JVD Chest: Clear to auscultation bilaterally, without rales, rhonchi, or wheezes. There is no accessory muscle use or retractions. Cardiac: Regular rate and rhythm without murmurs, Abd: Soft, nondistended, no signs of tenderness present over abdomen on palpation with normoactive bowel sounds. No guarding or rebound. Extremities: no pedal edema. 2+ radial pulses. Skin: no significant rash appreciated. Neuro: altert , awake , oriented . Coagulation Studies Laboratory Tests Test 01/10/25 06:28 Prothrombin Time 11.8 SECONDS (9.0-12.0) INR International Normalized Ratio 1.2 INR Coagulation Comments Problem\Assessment\Plan 34 years old female with history of alcohol use disorder, history of pancreatitis depression, anxiety is currently evaluated for Alcohol with drawl seizures Severe Alcohol withdrawl Symptoms : CIWA score 22 Autonomic symptoms : patient presents with Tremors of hand at rest, severe Nausea/vomiting, 3 episodes of seizures most likley secondary to alcohol withdrawl CT head shows no acute intra-cranial abnormality Utox Plan: Alcohol withdrawl protocol in place: Diazeplam q15 prn and librium 25mg Po Q6h as scheduled Continue Thiamine, folic acid and multivitamin Fall precautions in place social worker delinquency prevention consult requested h/o Chronic pancreatitis- lipase normal, CT scan abdomen and pelvis done on October 14, 2024 showed Sequela of chronic pancreatitis. Non-anion gap metabolic acidosis Bicarb-18.3, anion gap-16 Most likely due to vomiting Plan IV hydration-Ringer's lactate: 100 mL/hour Monitor CMP daily Anxiety/Depression Home medications include venlafaxine and trazodone Code status: Full code DVT prophylax: Lovenox Patient's current condition is guarded we will continue to follow patient in a.m. Date of Service: Jan 10, 2025 Billing Provider: RADHA LEIVA MD Common Visit Codes: [id number] INP/OBS CARE(HIGH) RADHA LEIVA MD Jan 10, 2025 18:37
[2025-01-10 20:00] VITALS: RESP 15; O2SAT 100
[2025-01-10 22:00] VITALS: BP 133/90; PULSE 83; RESP 18; TEMP 98; O2SAT 99
[2025-01-11] VITALS (8 sets, daily range): BP systolic 100–119; BP diastolic 67–83; PULSE 72–90; RESP 14–22; TEMP 97.4–98.3; O2SAT 97–100
[2025-01-11] MEDS: mag hydrox/Alum hydrox/simeth 30ml oral suspension PO PRN (00:04)
[2025-01-11] MEDS: ondansetron/PF 4mg/2ml inj IV PRN (00:49)
[2025-01-11 06:32] LABS: MEAN PLATELET VOLUME 9.8 FL (7.4-10.4); RED CELL DISTRIBUTION WIDTH 13.6 % (11.5-14.5)
[2025-01-11 06:51] LABS: CREATININE 0.45 MG/DL (0.40-0.90); TOTAL CARBON DIOXIDE 26.9 MMOL/L (24-32); eCRCL 125 ML/MIN; eGFR > 90 ML/MIN
[2025-01-11 06:53] LABS: INR 1.0 INR
[2025-01-11] MEDS ORDERED: NICO-687 TD (10:53)
--- NOTE | 2025-01-11 19:43 | PROGRESS NOTE ---
Daily Progress Note Providers to CC ~ Antibiotic Timeout Antibiotic Ordered?: No Subjective Patient is not motivated to walk. Patient was evaluated by Physical therapy team limited mobility due to pain and generalized weakness. As per nursing staff patient is very emotional and depressed psychiatric consultation requested. Objective Vital Signs Date Time Temp Pulse Resp B/P (MAP) Pulse Ox O2 Delivery O2 Flow Rate FiO2 01/11/25 15:00 98.0 90 22 119/80 (93) 98 Room Air 01/09/25 09:16 0.0 Result Diagram: 01/11/25 0616 01/11/25 0616 General: Pt is awake, alert, oriented , looks comfortable Head: Normocephalic and atraumatic. Eyes: Conjunctiva normal. ENT: Mucous membranes moist. Neck: Supple.no JVD Chest: Clear to auscultation bilaterally, without rales, rhonchi, or wheezes. There is no accessory muscle use or retractions. Cardiac: Regular rate and rhythm without murmurs, Abd: Soft, nondistended, no signs of tenderness present over abdomen on palpation with normoactive bowel sounds. No guarding or rebound. Extremities: no pedal edema. 2+ radial pulses. Skin: no significant rash appreciated. Neuro: altert , awake , oriented . Coagulation Studies Laboratory Tests Test 01/11/25 06:16 Prothrombin Time 10.6 SECONDS (9.0-12.0) INR International Normalized Ratio 1.0 INR Coagulation Comments Problem\Assessment\Plan 34 years old female with history of alcohol use disorder, history of pancreatitis depression, anxiety is currently evaluated for Alcohol with drawl seizures Severe Alcohol withdrawl Symptoms : CIWA score 22 Autonomic symptoms : patient presents with Tremors of hand at rest, severe Nausea/vomiting, 3 episodes of seizures most likley secondary to alcohol withdrawl CT head shows no acute intra-cranial abnormality Utox Plan: Alcohol withdrawl protocol in place: Diazeplam q15 prn and librium 25mg Po Q6h as scheduled Continue Thiamine, folic acid and multivitamin Fall precautions in place social work job titles consult requested h/o Chronic pancreatitis- lipase normal, CT scan abdomen and pelvis done on October 14, 2024 showed Sequela of chronic pancreatitis. Non-anion gap metabolic acidosis Bicarb-18.3, anion gap-16 Most likely due to vomiting Plan IV hydration-Ringer's lactate: 100 mL/hour Monitor CMP daily Anxiety/Depression Home medications include venlafaxine and trazodone Code status: Full code DVT prophylax: Lovenox Patient's current condition is guarded we will continue to follow patient in a.m. Date of Service: Jan 11, 2025 Billing Provider: RADHA LEIVA MD Common Visit Codes: [id number] INP/OBS CARE(HIGH) RADHA LEIVA MD Jan 11, 2025 19:43
[2025-01-12] VITALS (7 sets, daily range): BP systolic 94–122; BP diastolic 65–82; PULSE 80–88; RESP 13–22; TEMP 97.3–98.5; O2SAT 97–100
[2025-01-12 07:03] LABS: MEAN PLATELET VOLUME 10.2 FL (7.4-10.4); RED CELL DISTRIBUTION WIDTH 13.8 % (11.5-14.5)
[2025-01-12 07:36] LABS: INR 1.0 INR
[2025-01-12 07:55] LABS: CREATININE 0.76 MG/DL (0.40-0.90); TOTAL CARBON DIOXIDE 25.7 MMOL/L (24-32); eCRCL 74 ML/MIN; eGFR 87 ML/MIN
--- NOTE | 2025-01-12 12:56 | PROGRESS NOTE ---
Progress Note Dictate Providers to CC ~ Progress Note: HPI: Presented to the ED with seizures in the context of withdrawing from alcohol. Psychiatric consultation requested in the context of her depression and anxiety. Psychiatric History: hx of depression and anxiety Past psychiatric medications: venlafaxine, trazodone, hydroxyzine Substances use history: Hx of alcohol use disorder, pack of ciggarettes, THC, bottle of vodka daily for 10 years Social history: Unemployed, lives in a home with spouse Today on Assessment: Refused to talk. States medication has never helped. Psychiatric Medications: Hydroxyzine 25 mg po qd Keppra IV 400 mls/hr IV Recent PRNS: none Side Effects: Denies Review of Psychiatric Symptoms: Mood: depressed, hopeless Suicide/self-harm: denies Sleep: per nursing staff - slept Appetite: poor Energy: poor Anxiety: endorses Irritability: present Homicidal/Anger: not observed Hallucinations/Paranoia: denies Trauma symptoms: denies Symptoms related to substance withdrawal: depressed Mental Status Evaluation General Appearance: slumped over in hospital bed, wearing hospital gown Eye contact: consistent with social norms , intermittent, poor, avoidant Demeanor: guarded, withdrawn Orientation: to person, place, time, situation Speech: Appropriate rate/rhythm/volume Psychomotor Activity: lethargy Abnormal Body Movements: none observed Mood: depressed Affect: flat Suicidality: denies suicidal ideation Homicidally: denies Thought content: consistent with social norms Thought process: poverty of thought Thought perceptions: no perceptual disorder noted Memory: impairment notable Attention: preoccupied Insight: poor Judgment: limited Medical History Hx of pancreatitis Cardiac HX: Denies TBI Hx: no history noted Seizure Hx: alcohol withdrawal seizures, no epilepsy MATT Hx: denies Diagnoses Alcohol Use disorder, severe MDD, recurrent severe Tobacco use disorder Assessment Based on initial evaluation, including interview and history obtained today, patient appears to meet criteria for alcohol use disorder, MDD. She would not engage in an meaningful interview today. Discussed with HALEY who had a discussion yesterday about substance use treatment planning. She presents as hopeless and despondent about treating her alcohol addiction and mental health. Would recommend starting a low dose antidepressant to address the severity of her depressive symptoms. Would recommend starting gabapentin to promote remission of alcohol withdrawal. The campo recommendation for further treatment would be a residential dual diagnosis substance use program. Safety risk: low risk of imminent self-harm, low risk of externalized violent behaviors Recommendations: Start SSRI like fluoxetine 20 mg po qd for depression Start gabapentin 300 mg po TID to promote remission of alcohol withdrawl recommendation for further treatment would be a residential dual diagnosis substance use program. Spent approximately 30 minutes reviewing records and test results, assessing and treatment planning, completing care coordination and documenting the encounter. Discussed risks, including possible adverse effects, and benefits of treatment recommendations including no treatment. Voice recognition software may have been used to dictate this note. There may be errors due to use of such software. Reporting of serious errors is appreciated. Antibiotic Ordered?: No Objective Vitals Vital Signs Date Time Temp Pulse Resp B/P (MAP) Pulse Ox O2 Delivery O2 Flow Rate FiO2 01/12/25 11:00 98.4 83 14 101/72 (82) 99 Room Air 01/12/25 08:00 0.0 Lab Results: 01/12/25 0613 01/12/25 0613 Coagulation Studies Laboratory Tests Test 01/12/25 06:13 Prothrombin Time 10.5 SECONDS (9.0-12.0) INR International Normalized Ratio 1.0 INR Coagulation Comments CODING VISIT-PSYCHIATRY Date of Service: Jan 13, 2025 Billing Provider: CECI ROJO DNP Psych Common Visit Codes: CONSULT ONLY CECI ROJO DNP Jan 12, 2025 12:56
--- NOTE | 2025-01-12 18:55 | PROGRESS NOTE ---
Daily Progress Note Providers to CC ~ Antibiotic Timeout Antibiotic Ordered?: No Subjective Patient is seen in presence of nursing staff patient is willing to talk to social work supervisor and psychiatric team. Patient was not able to ambulate much with physical therapy team today. Psychiatric consultation pending . Objective Vital Signs Date Time Temp Pulse Resp B/P (MAP) Pulse Ox O2 Delivery O2 Flow Rate FiO2 01/12/25 15:00 97.5 88 15 114/82 (93) 97 Room Air 01/12/25 08:00 0.0 Result Diagram: 01/12/2561201/12/25612 General: Pt is awake, appeared depressed Head: Normocephalic and atraumatic. Eyes: Conjunctiva normal. ENT: Mucous membranes moist. Neck: Supple.no JVD Chest: Clear to auscultation bilaterally, without rales, rhonchi, or wheezes. There is no accessory muscle use or retractions. Cardiac: Regular rate and rhythm without murmurs, Abd: Soft, nondistended, no signs of tenderness present over abdomen on palpation with normoactive bowel sounds. No guarding or rebound. Extremities: no pedal edema. 2+ radial pulses. Skin: no significant rash appreciated. Neuro: No focal neurological deficit noticed, awake , Coagulation Studies Laboratory Tests Test 01/12/25 06:13 Prothrombin Time 10.5 SECONDS (9.0-12.0) INR International Normalized Ratio 1.0 INR Coagulation Comments Problem\Assessment\Plan 34 years old female with history of alcohol use disorder, history of pancreatitis depression, anxiety is currently evaluated for Alcohol with drawl seizures Severe Alcohol withdrawl Symptoms : CIWA score 22 Autonomic symptoms : patient presents with Tremors of hand at rest, severe Nausea/vomiting, 3 episodes of seizures most likley secondary to alcohol withdrawl CT head shows no acute intra-cranial abnormality Utox Plan: Alcohol withdrawl protocol in place: Diazeplam q15 prn and librium 25mg Po Q6h as scheduled Continue Thiamine, folic acid and multivitamin Fall precautions in place foster care social worker consult requested h/o Chronic pancreatitis- lipase normal, CT scan abdomen and pelvis done on October 14, 2024 showed Sequela of chronic pancreatitis. Non-anion gap metabolic acidosis Bicarb-18.3, anion gap-16 Most likely due to vomiting Plan IV hydration-Ringer's lactate: 100 mL/hour Monitor CMP daily Anxiety/Depression Home medications include venlafaxine and trazodone. Psychiatric consultation pending . MRI of head ordered due to weakness and inability to walk Code status: Full code DVT prophylax: Lovenox Patient's current condition is guarded we will continue to follow patient in a.m. Date of Service: Jan 12, 2025 Billing Provider: RADHA LEIVA MD Common Visit Codes: [id number] INP/OBS CARE(HIGH) RADHA LEIVA MD Jan 12, 2025 18:55
--- NOTE | 2025-01-12 20:43 | RADIOLOGY REPORT ---
EXAM: MR MRI HEAD INDICATION: Unable to walk TECHNIQUE: Multiplanar, multisequence imaging of the brain without contrast. COMPARISON: CT CT HEAD on DOS: 01/08/25 FINDINGS: [PARENCHYMA]: No definitive acute infarction. Inconspicuous area of increased possible diffusion signal along the szymanski matter of the iuszk-nebxzfo-lznu-left anterior frontal szymanski matter however without definitive diffusion restriction or accompanying low ADC. potential minimal asymmetric T2 prominence of the right frontal gyri not corroborated on T2/FLAIR coronal images. Imaging findings may be artifactual however consider correlation for trace gyral edema in the setting of recent seizure. No mass effect or herniation. No abnormal susceptibility weighted artifact. There are minimal periventricular and centrum semiovale T2/FLAIR hyperintensities, which are nonspecific but most likely represent design engineering intern amee microvascular ischemic change. [VENTRICLES]: No hydrocephalus. [EXTRA-AXIAL SPACES]: No extra-axial fluid collections. [FLOW VOIDS]: The flow voids are intact. [EXTRA-CRANIAL STRUCTURES]: The bony structures are intact. Visualized portions of the paranasal sinuses and mastoid air cells are essentially clear. IMPRESSION: 1. No definitive acute infarction. 2. Inconspicuous area of increased possible diffusion signal along the szymanski matter of the zrhgj-xgoucei-tddc-left anterior frontal szymanski matter however without definitive diffusion restriction or accompanying low ADC. 3. Potential minimal asymmetric T2 prominence of the right frontal gyri not corroborated on T2/FLAIR coronal images. 4. Imaging findings may be artifactual however consider correlation for trace gyral edema in the setting of recent seizure.
[2025-01-13 05:02] LABS: MEAN PLATELET VOLUME 10.2 FL (7.4-10.4); RED CELL DISTRIBUTION WIDTH 13.4 % (11.5-14.5)
[2025-01-13 05:08] LABS: INR 1.0 INR
[2025-01-13 05:17] LABS: CREATININE 0.64 MG/DL (0.40-0.90); TOTAL CARBON DIOXIDE 29.8 MMOL/L (24-32); eCRCL 88 ML/MIN; eGFR > 90 ML/MIN
[2025-01-13 06:00] VITALS: BP 98/63; PULSE 78; RESP 19; TEMP 97.9; O2SAT 99
[2025-01-13 10:25] VITALS: RESP 19; O2SAT 99
[2025-01-13 18:00] VITALS: BP 107/79; PULSE 89; RESP 18; TEMP 98.5; O2SAT 100
[2025-01-13] MEDS: diazepam inj 5 MG/ML inj. IV PRN (19:29)
[2025-01-13 20:00] VITALS: RESP 18; O2SAT 100
--- NOTE | 2025-01-13 20:15 | PROGRESS NOTE ---
Daily Progress Note Providers to CC ~ Antibiotic Timeout Antibiotic Ordered?: No Subjective Patient was seen twice today. In the morning she told me that she is not suicidal then later today she spoke to nursing staff and told them that she is planning to harm herself. I re-evaluated patient today in presence of nursing staff, charge nurse Ramon Leroy today . When I asked her if she is planning to kill herself she said I do not know. Showing her anger and frustration badly. She feels that nobody is helping her she do not want to talk to long term care social worker or psychiatric people. Physical therapy evaluation done they recommended home with barrier. I really check patient's ambulation status she is barely able to Encourage out of bed to chair, increase activity/ambulation as tolerated with required assistance at least 3-4 times in a day fall precautions advised with walker. Patient's medication dose adjusted , started fluoxetine gabapentin. We [place] [id number] sitter order placed we will follow strict fall precautions . Patient has chronic psychiatric issues and needs mental health evaluation. Objective Vital Signs Date Time Temp Pulse Resp B/P (MAP) Pulse Ox O2 Delivery O2 Flow Rate FiO2 01/13/25 19:29 19 01/13/25 10:25 99 Room Air 01/13/25 06:00 97.9 78 98/63 (75) 01/12/25 20:40 0.0 Result Diagram: 01/13/258 01/13/25427 General: Pt is awake, appeared depressed Head: Normocephalic and atraumatic. Eyes: Conjunctiva normal. ENT: Mucous membranes moist. Neck: Supple.no JVD Chest: Clear to auscultation bilaterally, without rales, rhonchi, or wheezes. There is no accessory muscle use or retractions. Cardiac: Regular rate and rhythm without murmurs, Abd: Soft, nondistended, no signs of tenderness present over abdomen on palpation with normoactive bowel sounds. No guarding or rebound. Extremities: no pedal edema. 2+ radial pulses. Skin: no significant rash appreciated. Neuro: No focal neurological deficit noticed, awake , Coagulation Studies Laboratory Tests Test 01/13/25 04:28 Prothrombin Time 10.4 SECONDS (9.0-12.0) INR International Normalized Ratio 1.0 INR Coagulation Comments Problem\Assessment\Plan 34 years old female with history of alcohol use disorder, history of pancreatitis depression, anxiety is currently evaluated for Alcohol with drawl seizures Severe Alcohol withdrawl Symptoms : CIWA score 22 Autonomic symptoms : patient presents with Tremors of hand at rest, severe Nausea/vomiting, 3 episodes of seizures most likley secondary to alcohol withdrawl CT head shows no acute intra-cranial abnormality Utox Plan: Alcohol withdrawl protocol in place: Diazeplam q15 prn and librium 25mg Po Q6h as scheduled Continue Thiamine, folic acid and multivitamin Fall precautions in place long term care social worker consult requested h/o Chronic pancreatitis- lipase normal, CT scan abdomen and pelvis done on October 14, 2024 showed Sequela of chronic pancreatitis. Non-anion gap metabolic acidosis Bicarb-18.3, anion gap-16 Most likely due to vomiting Plan IV hydration-Ringer's lactate: 100 mL/hour Monitor CMP daily Anxiety/Depression Home medications include venlafaxine and trazodone. Psychiatric consultation pending . MRI of head ordered due to weakness and inability to walk Code status: Full code DVT prophylax: Martínezx Patient was seen twice today. In the morning she told me that she is not suicidal then later today she spoke to nursing staff and told them that she is planning to harm herself. I re-evaluated patient today in presence of nursing staff, charge nurse Ramon Leroy today . When I asked her if she is planning to kill herself she said I do not know. Showing her anger and frustration badly. She feels that nobody is helping her she do not want to talk to long term care social worker or psychiatric people. Physical therapy evaluation done they recommended home with barrier. I really check patient's ambulation status she is barely able to Encourage out of bed to chair, increase activity/ambulation as tolerated with required assistance at least 3-4 times in a day fall precautions advised with walker. Patient's medication dose adjusted , started fluoxetine gabapentin. We [place] [id number] sitter order placed we will follow strict fall precautions . Patient has chronic psychiatric issues and needs mental health evaluation. Patient's current condition is guarded we will continue to follow patient in a.m. Date of Service: Jan 13, 2025 Billing Provider: RADHA LEIVA MD Common Visit Codes: [id number] INP/OBS CARE(HIGH) RADHA LEIVA MD Jan 13, 2025 20:15
[2025-01-13 22:00] VITALS: BP 131/87; PULSE 87; RESP 20; TEMP 98.5; O2SAT 100
[2025-01-14 06:18] VITALS: BP 102/69; PULSE 84; RESP 20; TEMP 97.4; O2SAT 100
[2025-01-14 08:04] VITALS: RESP 16; O2SAT 95
[2025-01-14 11:33] VITALS: BP 114/75; PULSE 86; RESP 16; TEMP 97.8; O2SAT 100
[2025-01-14 18:00] VITALS: BP 114/83; PULSE 89; RESP 14; TEMP 98.3; O2SAT 100
--- NOTE | 2025-01-14 18:53 | PROGRESS NOTE ---
Daily Progress Note Providers to CC ~ Antibiotic Timeout Antibiotic Ordered?: No Subjective Patient was seen and evaluated in presence of nursing staff [facility] evaluated the patient in did not put the hold for 5150 for her. They contacted me and they do not feel patient is suicidal Objective Vital Signs Date Time Temp Pulse Resp B/P (MAP) Pulse Ox O2 Delivery O2 Flow Rate FiO2 01/14/25 16:54 16 01/14/25 11:33 97.8 86 114/75 (88) 100 Room Air 01/14/25 08:30 0.0 Result Diagram: 01/13/2542701/13/25427 General: Pt is awake, appeared depressed Head: Normocephalic and atraumatic. Eyes: Conjunctiva normal. ENT: Mucous membranes moist. Neck: Supple.no JVD Chest: Clear to auscultation bilaterally, without rales, rhonchi, or wheezes. There is no accessory muscle use or retractions. Cardiac: Regular rate and rhythm without murmurs, Abd: Soft, nondistended, no signs of tenderness present over abdomen on palpation with normoactive bowel sounds. No guarding or rebound. Extremities: no pedal edema. 2+ radial pulses. Skin: no significant rash appreciated. Neuro: No focal neurological deficit noticed, awake , Coagulation Studies Laboratory Tests Test 01/13/25 04:28 Prothrombin Time 10.4 SECONDS (9.0-12.0) INR International Normalized Ratio 1.0 INR Coagulation Comments Problem\Assessment\Plan 34 years old female with history of alcohol use disorder, history of pancreatitis depression, anxiety is currently evaluated for Alcohol with drawl seizures Severe Alcohol withdrawl Symptoms : CIWA score 22 Autonomic symptoms : patient presents with Tremors of hand at rest, severe Nausea/vomiting, 3 episodes of seizures most likley secondary to alcohol withdrawl CT head shows no acute intra-cranial abnormality Utox Plan: Alcohol withdrawl protocol in place: Diazeplam q15 prn and librium 25mg Po Q6h as scheduled Continue Thiamine, folic acid and multivitamin Fall precautions in place family welfare social work professor consult requested h/o Chronic pancreatitis- lipase normal, CT scan abdomen and pelvis done on October 14, 2024 showed Sequela of chronic pancreatitis. Non-anion gap metabolic acidosis Bicarb-18.3, anion gap-16 Most likely due to vomiting Plan IV hydration-Ringer's lactate: 100 mL/hour Monitor CMP daily Anxiety/Depression Home medications include venlafaxine and trazodone. Psychiatric consultation pending . MRI of head ordered due to weakness and inability to walk, it showed No definitive acute infarction. Code status: Full code DVT prophylax: Lovenox 01/13-Patient was seen twice today. In the morning she told me that she is not suicidal then later today she spoke to nursing staff and told them that she is planning to harm herself. I re-evaluated patient today in presence of nursing staff, charge nurse Ramon Leroy today . When I asked her if she is planning to kill herself she said I do not know. Showing her anger and frustration badly. She feels that nobody is helping her she do not want to talk to social sciences research scientist or psychiatric people. Physical therapy evaluation done they recommended home with barrier. I really check patient's ambulation status she is barely able to Encourage out of bed to chair, increase activity/ambulation as tolerated with required assistance at least 3-4 times in a day fall precautions advised with walker. Patient's medication dose adjusted , started fluoxetine gabapentin. We [place] [address] sitter order placed we will follow strict fall precautions . Patient has chronic psychiatric issues and needs mental health evaluation. 01/14- [facility] evaluated the patient in did not put the hold for 5150 for her. They contacted me and they do not feel patient is suicidal. Patient's current condition is guarded we will continue to follow patient in a.m. patient needs physical therapy everyday by PT team Date of Service: Jan 14, 2025 Billing Provider: RADHA LEIVA MD Common Visit Codes: [id number] INP/OBS CARE(HIGH) RADHA LEIVA MD Jan 14, 2025 18:53
[2025-01-14 20:00] VITALS: RESP 14; O2SAT 100
[2025-01-14] MEDS: diazepam inj 5 MG/ML inj. IV PRN (20:23)
[2025-01-14 22:00] VITALS: BP 100/66; PULSE 81; RESP 18; TEMP 98.2; O2SAT 100
[2025-01-14] MEDS: morphine 4 MG/ML inj SYRINge IV PRN (23:01)
[2025-01-15 05:00] VITALS: BP 98/70; PULSE 74; RESP 16; TEMP 97.9; O2SAT 96
[2025-01-15 08:53] VITALS: RESP 16; O2SAT 100
[2025-01-15 10:00] VITALS: BP 107/78; PULSE 89; RESP 18; TEMP 97.7; O2SAT 100
[2025-01-15] MEDS ORDERED: MULT-1085 PO (16:17)
[2025-01-15 16:38] VITALS: RESP 14
--- NOTE | 2025-01-15 17:58 | DISCHARGE SUMMARY-Residence ---
Discharge Summary Providers to CC Resident Creating Document: ISABELLAZENYALAN SOLOMON, RES CC: DMITRIY IRAHETA MD ~ Discharge Summary Admission Diagnosis: ALCOHOL SEIZURES Hospital Course DATE OF ADMISSION: 01/08/25 DATE OF DISCHARGE: 01/15/25 Discharge Diagnosis\Comment: Alcohol withdrawal Alcohol use disorder Alcohol withdrawal seizure Chronic pancreatitis Non-anion gap metabolic acidosis Anxiety/depression Operations\Procedures: None Consultants: Neurology Complications: None Condition on DC: Stable New Medications: Multivitamin (Multi Vitamin Daily) 1 Each Tablet 1 TAB PO DAILY for 30 Days, #30 TAB 0 Refills Nicotine 21 MG Patch* (Habitrol 21 MG Patch*) 1 Each Patch.td24 1 PATCH TD DAILY for 30 Days, #30 PATCH Continued Medications: Folic Acid (FOLIC ACID tablet) 0.4 Mg Tablet 1 TAB PO DAILY Hydroxyzine Hcl* (Atarax*) 25 Mg Tablet 1 TAB PO DAILY Naltrexone Hcl (Naltrexone Hcl) 50 Mg Tablet 1 TAB PO DAILY Pantoprazole Sodium (PROTONIX tablet) 40 Mg Tablet.dr 1 TAB PO DAILY for 30 Days, #30 TAB 0 Refills Thiamine Hcl (Vitamine B-1) 100 Mg Tablet 1 TAB PO DAILY Tizanidine Hcl (Zanaflex) 2 Mg Tablet 1 TAB PO DAILY Discharge Summary: A 34-year-old female with PMH of alcohol use disorder, history of chronic pancreatitis and depression was brought in by the EMS in view of three views of seizures at home. On further investigations, patient was found to have normal lipase, non-anion gap metabolic acidosis, increased concentration of alcohol in the blood. Patient was placed on severe alcohol withdrawal protocol, supplemented with thiamine, folic acid, MVT, dextrose. Patient had episodes of vomitings which led to non-anion gap metabolic acidosis which was treated with lactated ringer. Patient was given Keppra in the hospital. Patient did not have any further seizure episodes, decreased withdrawal symptoms. Patient was managed per home medications for her chronic medical conditions. At the time of admission patient's imaging were negative for hemorrhagic stroke/ischemic stroke. Patient was evaluated by county for any possible suicidal behavior, hold was not placed and patient was cleared for discharge. After evaluation by PT and training about safety to her . Patient is hemodynamically stable for discharge. Physical examination at discharge: General: Malnourished middle-aged woman, debilitated, weak Alert, awake, oriented, not in acute distress HEENT: PERRLA, no icterus, pallor, lymphadenopathy, carotid bruit Respiratory system: Bilateral vesicular breath sounds heard, no adventitious breath sounds CVS: S1-S2 heard, no murmurs/rubs/gallop GI: Soft, nontender, no organomegaly, no guarding/rigidity, bowel sounds present Neuro: No focal neurological deficits present Extremities: No edema cyanosis clubbing/deformities Skin: Warm and dry Labs at discharge: WBC: 8.1, H/H: 13.1/38.7, platelet count: 123 Sodium: 144, potassium: 3.9, BUN: Four, creatinine: 0.64 Imaging: Head CT: No acute findings Head MRI: Inconspicuous area of increased possible diffusion signal along the szymanski matter of the [id number]-left anterior frontal szymanski matter however without definitive diffusion restriction or accompanying low ADC. Discharge medications can be found above. Patient is discharged home with the following instructions: Please follow-up with primary care physician and alcohol anonymous program in o utpatient setting after hospital discharge. Provide fall precautions document. Activity as tolerated. Patient is strongly advised to stop alcohol Return to ER or call 911 in view of seizures, nausea vomitings, hematemesis, melena. *Problems/Diagnosis: (1) Alcohol withdrawal seizure Total Time Spent on D/C: > 30 Minutes Date of Service: Jan 15, 2025 Billing Provider: DMITRIY IRAHETA MD, SIVA, RES Jan 15, 2025 17:58
[2025-01-15] MEDS ORDERED: lactose-reduced food (Ensure Enlive) - 237ml bottle PO SCH (18:00)
== END 2025-01-15 17:35 | disposition home or self-care (01) | DRG 53 ==
LOC: ER 16:41 → ED HOLD 19:27 → EDBEDREQ 22:59 → PCU 3S 23:30 → SUR 3N 01-12 17:21 → PCU 3S 01-12 17:35 → SUR 3N 01-12 20:28
PROVIDERS: ADMIT Internal Medicine Critical Care Medicine; ATTEND Internal Medicine
DX: R56.9 Unspecified convulsions (principal); E87.20 Acidosis, unspecified; F10.239 Alcohol dependence with withdrawal, unspecified; F31.9 Bipolar disorder, unspecified; F41.9 Anxiety disorder, unspecified; Z20.822 Contact with and (suspected) exposure to COVID-19; I10 Essential (primary) hypertension; I25.10 Atherosclerotic heart disease of native coronary artery without angina pectoris; K86.1 Other chronic pancreatitis; Z87.891 Personal history of nicotine dependence; Z88.5 Allergy status to narcotic agent
CPT/HCPCS: 36415; 70450; 70551; 80048; 80053; 80164; 80185; 80305; 80320; 80329; 82140; 82150; 82948; 83690; 85025; 85610; 87081; 87811; 93005; 96361; 96365; 96375; 97110; 97116; 97161; 97162; 97530; 97535; 99285; A5200; A6258; C1758; G0378; J1650; J1953; J2060; J2270; J2405; J3360; J7030; J7120; Q0177